=== PATIENT | male | born 1940 | race Caucasian/White ===

== ENCOUNTER 2017-10-11 17:21 | Emergency (ER) | payer MEDICARE ==
--- NOTE | 2017-10-11 18:58 | CT ---
CT abdomen and pelvis Technique: Multiple axial sections were obtained from above the dome of the diaphragm inferiorly through the pubic symphysis. Intravenous and oral contrast not utilized. Lack of contrast makes evaluation difficult due to previous previous surgery. Comparison: No previous study. Findings: Small portion of the visualized lung bases are clear. Moderate-sized hiatal hernia is noted. Noncontrast appearance of the liver and spleen appears within normal limits. Adrenal glands show no nodule. Pancreas is within normal limits. Kidneys show no hydronephrosis. Previous prostatectomy is seen with multiple surgical clips within the pelvis as well as bladder resection. There appears to be a ileal conduit in place within the right lower abdomen. Ostomy is seen within the right lower abdomen. No bowel dilatation is seen. There is no inflammatory change being appreciated. No free fluid is seen. Bone window settings were reviewed which shows scattered degenerative change within the spine with mild scoliosis. Impression: 1. Previous resection of the bladder as well as prostatectomy. Nondilated ureters are seen extending into what appears to be an ileal conduit. No ureteral calculi are seen. Ostomy is noted within the right lower abdomen. Please correlate that ileal conduit is functioning. 2. Further anatomy of this surgery is difficult to determine without oral and IV contrast. 3. Hiatal hernia. Nothing acute is appreciated on this noncontrast study. Diagnostic code #3
--- NOTE | 2017-10-11 19:13 | EDM.PDOC ---
ED HPI GENERAL MEDICAL PROBLEM - General Chief Complaint: Genitourinary Problem Stated Complaint: ABDOMINAL PAIN Time Seen by Provider: 10/11/17 17:37 Source of Information: Reports: Patient History Limitations: Reports: No Limitations - History of Present Illness INITIAL COMMENTS - FREE TEXT/NARRATIVE: 76 year old Male presents for evaluation and treatment of abdominal pain to the [facility]. Patient reports he's been experiencing abdominal pain for the last couple days. Reportedly saw Dr. Gordon 2 days ago. Had a culture done of the area but does not know the results. No fevers, chills, nausea, vomiting or back pain. 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 No surrounding erythema or swelling. States it is draining normal per the patient. Right Lower Abdomen Pain Score (Numeric/FACES): 6 - Related Data Allergies Allergy/AdvReac Type Severity Reaction Status Date / Time codeine Allergy Cannot Verified 10/11/17 17:33 Remember Home Meds: Home Meds Aspirin [Adult Low Dose Aspirin EC] 81 mg PO DAILY 10/11/17 [History] Furosemide 80 mg PO DAILY 10/11/17 [History] Insulin Aspart [NovoLOG] 35 unit SQ BEDTIME 10/11/17 [History] Insulin Aspart [NovoLOG] 55 unit SQ DAILY 10/11/17 [History] Isosorbide Mononitrate [Isosorbide Mononitrate ER] 30 mg PO DAILY 10/11/17 [ History] Lisinopril 10 mg PO DAILY 10/11/17 [History] Memantine [Namenda] 10 mg PO BID 10/11/17 [History] Metoprolol Tartrate [Lopressor] 25 mg PO Q12HR 10/11/17 [History] Sertraline [Zoloft] 100 mg PO DAILY 10/11/17 [History] Past Medical History HEENT History: Reports: Other (See Below) Other HEENT History: dentures Cardiovascular History: Reports: Heart Failure, ND, Stents Gastrointestinal History: Reports: GERD, Hiatal Hernia Psychiatric History: Reports: Dementia Endocrine/Metabolic History: Reports: Diabetes, Type II Hematologic History: Reports: Anticoagulation Therapy Oncologic (Cancer) History: Reports: Bladder - Past Surgical History Cardiovascular Surgical History: Reports: Coronary Artery Stent GI Surgical History: Reports: Cholecystectomy, Other (See Below) Other GI Surgeries/Procedures: 2/3 of stomach pouch removed Male Surgical History: Reports: Other (See Below) Other Male Surgeries/Procedures: urinary stoma RLQ Social & Family History - Tobacco Use Smoking Status *Q: Never Smoker Second Hand Smoke Exposure: No - Caffeine Use Caffeine Use: Reports: Coffee - Recreational Drug Use Recreational Drug Use: No ED ROS GENERAL - Review of Systems Review Of Systems: See Below Constitutional: Denies: Fever, Chills GI/Abdominal: Reports: Abdominal Pain. Denies: Nausea, Vomiting Musculoskeletal: Denies: Back Pain ED EXAM, RENAL/ - Physical Exam Exam: See Below Exam Limited By: No Limitations General Appearance: Alert, WD/WN, No Apparent Distress Ears: Normal External Exam Nose: Normal Inspection Throat/Mouth: Normal Inspection, Normal Lips, Normal Voice, No Airway Compromise Respiratory/Chest: No Respiratory Distress, Lungs Clear, Normal Breath Sounds Cardiovascular: Normal Peripheral Pulses, Regular Rate, Rhythm, No Murmur GI/Abdominal: Normal Bowel Sounds, Soft, Non-Tender, Other (RLQ urostomy, cloudy urine) Neurological: Alert, Oriented, Normal Cognition Psychiatric: Normal Affect, Normal Mood Skin Exam: Warm, Dry, Normal Color Course - Vital Signs Last Recorded V/S: Last Vital Signs Temp 36.4 C 10/11/17 17:29 Pulse 58 L 10/11/17 17:29 Resp 19 10/11/17 17:29 BP 138/61 10/11/17 17:29 Pulse Ox 95 10/11/17 17:29 - Orders/Labs/Meds Orders: Active Orders 24 hr Category Date Time Status CULTURE URINE [RM] Stat Lab 10/11/17 20:24 Ordered Labs: Laboratory Tests 10/11/17 10/11/17 10/11/17 Range/Units 18:05 18:05 18:45 WBC 7.12 (4.23-9.07) K/mm3 RBC 4.70 (4.63-6.08) M/mm3 Hgb 13.9 (13.7-17.5) gm/L Hct 41.7 (40.1-51.0) % MCV 88.7 (79.0-92.2) fl MCH 29.6 (25.7-32.2) pg MCHC 33.3 (32.2-35.5) g/dl RDW Std Deviation 45.8 H (35.1-43.9) fL Plt Count 180 (163-337) K/mm3 MPV 10.5 (9.4-12.3) fl Neutrophils % (Manual) 57 (40-60) % Band Neutrophils % 0 (0-10) % Lymphocytes % (Manual) 28 (20-40) % Atypical Lymphs % 0 % Monocytes % (Manual) 10 (2-10) % Eosinophils % (Manual) 5 (0.8-7.0) % Basophils % (Manual) 0 L (0.2-1.2) Platelet Estimate Adequate Plt Morphology Comment Normal RBC Morph Comment Normal Sodium 141 (136-145) mEq/L Potassium 5.0 (3.5-5.1) mEq/L Chloride 109 H (98-107) mEq/L Carbon Dioxide 28 (21-32) mEq/L Anion Gap 9.0 (5-15) BUN 33 H (7-18) mg/dL Creatinine 1.2 (0.7-1.3) mg/dL Est Cr Clr Drug Dosing 47.26 mL/min Estimated GFR (MDRD) 59 (>60) mL/min BUN/Creatinine Ratio 27.5 H (14-18) Glucose 132 H (83-115) mg/dL Calcium 9.2 (8.5-10.1) mg/dL Total Bilirubin 0.4 (0.2-1.0) mg/dL AST 33 (15-37) U/L ALT 38 (16-63) U/L Alkaline Phosphatase 80 (46-116) U/L C-Reactive Protein < 0.2 (<1.0) mg/dL Total Protein 7.0 (6.4-8.2) g/dl Albumin 3.6 (3.4-5.0) g/dl Globulin 3.4 gm/dL Albumin/Globulin Ratio 1.1 (1-2) Urine Color Light yellow (Yellow) Urine Appearance Cloudy H (Clear) Urine pH 8.5 H (5.0-8.0) Ur Specific [place] 1.010 (1.005-1.030) Urine Protein 2+ H (Negative) Urine Glucose (UA) Negative (Negative) Urine Ketones Negative (Negative) Urine Occult Blood Negative (Negative) Urine Nitrite Positive H (Negative) Urine Bilirubin Negative (Negative) Urine Urobilinogen 0.2 (0.2-1.0) Ur Leukocyte Esterase Negative (Negative) Urine RBC 0-5 (0-5) /hpf Urine WBC 0-5 (0-5) /hpf Ur Epithelial Cells 0-5 (0-5) /hpf Triple Phos Crystals Moderate H (NONE) /hpf Amorphous Sediment Few H (NOT SEEN) /hpf Urine Bacteria Many H (FEW) /hpf Urine Mucus Not seen (FEW) /hpf - Radiology Interpretation Free Text/Narrative:: CT abdomen and pelvis Technique: Multiple axial sections were obtained from above the dome of the diaphragm inferiorly through the pubic symphysis. Intravenous and oral contrast not utilized. Lack of contrast makes evaluation difficult due to previous previous surgery. Comparison: No previous study. Findings: Small portion of the visualized lung bases are clear. Moderate-sized hiatal hernia is noted. Noncontrast appearance of the liver and spleen appears within normal limits. Adrenal glands show no nodule. Pancreas is within normal limits. Kidneys show no hydronephrosis. Previous prostatectomy is seen with multiple surgical clips within the pelvis as well as bladder resection. There appears to be a ileal conduit in place within the right lower abdomen. Ostomy is seen within the right lower abdomen. No bowel dilatation is seen. There is no inflammatory change being appreciated. No free fluid is seen. Bone window settings were reviewed which shows scattered degenerative change within the spine with mild scoliosis. Impression: 1. Previous resection of the bladder as well as prostatectomy. Nondilated ureters are seen extending into what appears to be an ileal conduit. No ureteral calculi are seen. Ostomy is noted within the right lower abdomen. Please correlate that ileal conduit is functioning. 2. Further anatomy of this surgery is difficult to determine without oral and IV contrast. 3. Hiatal hernia. Nothing acute is appreciated on this noncontrast study. - Re-Assessments/Exams Free Text/Narrative Re-Assessment/Exam: 10/11/17 18:01 UA results obtained from Dr. Gordon's office. Negative nitrates and leukocytes. Large amount of blood. Case discussed with Dr. Laguna, recommend obtaining a CT of the abdomen and pelvis to rule out a stone. 10/11/17 20:39 I reviewed the labs and imaging with the patient. Will start him on Keflex twice a day for 7 days for the urinary tract infection and have him follow-up with PCP. He was also made aware of the hernia to the stoma site. This also could be causing sources pain. Discharge instructions as documented. Departure - Departure Time of Disposition: 20:39 Disposition: Home, Self-Care 01 Condition: Fair Clinical Impression: UTI, Urinary tract infectious disease, Abdominal wall hernia at previous stoma site - Discharge Information Instructions: Hernia, Adult, [id number], Urinary Tract Infection, Adult Referrals: PCP,Not In Area [Primary Care Provider] - Enrico Woodruff MD [Physician] - Forms: ED Department Discharge Additional Instructions: cephelexin 500mg 1 tab PO bid x 7 days make sure you are drinking plenty of fluids. follow-up with internal medicine in [address] Woodruff or Dr. Valenzuela at the [facility]. Call [phone] to schedule with him. Please return to the ER should your symptoms change or worsen - My Orders Last 24 Hours: My Active Orders 10/11/17 20:24 CULTURE URINE [RM] Stat - Assessment/Plan Last 24 Hours: My Active Orders 10/11/17 20:24 CULTURE URINE [RM] Stat
== END 2017-10-11 20:49 | disposition home or self-care (01) ==
LOC: JD.ED 17:21
DX: K43.9 Ventral hernia without obstruction or gangrene (principal); N39.0 Urinary tract infection, site not specified; I50.9 Heart failure, unspecified; I25.2 Old myocardial infarction; E11.9 Type 2 diabetes mellitus without complications; Z79.899 Other long term (current) drug therapy; Z79.4 Long term (current) use of insulin; Z88.5 Allergy status to narcotic agent; Z79.82 Long term (current) use of aspirin
CPT/HCPCS: 36415; 74176; 74176-26; 80053; 81001; 85025; 86140; 87086; 87088; 87186; 99283; 99284-25

== ENCOUNTER 2017-10-28 15:53 | Emergency (ER) | payer MEDICARE ==
--- NOTE | 2017-10-28 16:35 | EDM.PDOC ---
ED HPI GENERAL MEDICAL PROBLEM - General Chief Complaint: Upper Extremity Injury/Pain Stated Complaint: R SHOULDER PAIN Time Seen by Provider: 10/28/17 16:09 Source of Information: Reports: Patient History Limitations: Reports: No Limitations - History of Present Illness INITIAL COMMENTS - FREE TEXT/NARRATIVE: The patient states that he was getting out of his pickup around 09:00 to 09:30 this morning, when he slipped on ice, falling onto his right shoulder. He also struck the back of his head against the truck door, but there was no loss of consciousness. The patient presents with pain in his right anterior shoulder. He states that he took some Olivet, which he ordinarily takes for neck pain, but that they did not help. He states that he can move his shoulder, with pain. No prior right humeral fracture. The patient drove himself to the ED. The patient's PCP is Dr. Dre Oneill, in [place]. Right Shoulder Pain Score (Numeric/FACES): 7 - Related Data Allergies Allergy/AdvReac Type Severity Reaction Status Date / Time codeine Allergy Cannot Verified 10/28/17 16:05 Remember Home Meds: Home Meds Aspirin [Adult Low Dose Aspirin EC] 81 mg PO DAILY 10/11/17 [History] Furosemide 80 mg PO DAILY 10/11/17 [History] Insulin Aspart [NovoLOG] 35 unit SQ BEDTIME 10/11/17 [History] Insulin Aspart [NovoLOG] 55 unit SQ DAILY 10/11/17 [History] Isosorbide Mononitrate [Isosorbide Mononitrate ER] 30 mg PO DAILY 10/11/17 [ History] Lisinopril 10 mg PO DAILY 10/11/17 [History] Memantine [Namenda] 10 mg PO BID 10/11/17 [History] Metoprolol Tartrate [Lopressor] 25 mg PO Q12HR 10/11/17 [History] Sertraline [Zoloft] 100 mg PO DAILY 10/11/17 [History] Past Medical History HEENT History: Reports: Other (See Below) Other HEENT History: dentures Cardiovascular History: Reports: CAD, MS (x 4) Gastrointestinal History: Reports: GERD, Hiatal Hernia Endocrine/Metabolic History: Reports: Diabetes, Type II Hematologic History: Reports: Anticoagulation Therapy Oncologic (Cancer) History: Reports: Bladder - Past Surgical History Cardiovascular Surgical History: Reports: Coronary Artery Stent (x 2) GI Surgical History: Reports: Cholecystectomy, Small Bowel, Other (See Below) ( Partial gastrectomy? Or Diana fundoplication?) Male Surgical History: Reports: Cystectomy, Prostatectomy, Other (See Below) (Urostomy RLQ) Social & Family History - Tobacco Use Smoking Status *Q: Former Smoker Years of Tobacco use: 35 Packs/Tins Daily: 2 Month Tobacco Last Used: Quit around 2007 Second Hand Smoke Exposure: No - Caffeine Use Caffeine Use: Reports: Coffee - Alcohol Use Alcohol Use History: Yes Alcohol Use Frequency: Socially - Recreational Drug Use Recreational Drug Use: No - Living Situation & Occupation Living situation: Reports: , with Family (daughter) Occupation: Retired Review of Systems - Review of Systems Review Of Systems: ROS reveals no pertinent complaints other than HPI. ED EXAM, GENERAL - Physical Exam Exam: See Below Exam Limited By: No Limitations General Appearance: Alert, WD/WN, Mild Distress (Appears uncomfortable) Extremities: Other (No visible abnormality to the right shoulder, such as obvious deformity, swelling, erythema, ecchymosis, or abrasion. Minimal tenderness to palpation of the anterior shoulder, however, pain is induced with any ROM. Neurovascular status of the right upper extremity is intact.) Course - Vital Signs Last Recorded V/S: Last Vital Signs Temp 36.7 C 10/28/17 16:00 Pulse 52 L 10/28/17 16:00 Resp 13 10/28/17 16:00 BP 162/70 H 10/28/17 16:00 Pulse Ox 99 10/28/17 16:00 - Orders/Labs/Meds Orders: Active Orders 24 hr Category Date Time Status Shoulder Comp Rt [CR] Stat Exams 10/28/17 16:13 Taken DME for Discharge [COMM] Stat Oth 10/28/17 16:54 Ordered - Re-Assessments/Exams Free Text/Narrative Re-Assessment/Exam: 10/28/17 16:38 3-view radiographs of the right shoulder appear to be normal. No fracture or dislocation identified. Formal read per the Radiologist pending. 10/28/17 16:55 X-ray results discussed with the patient. The patient likely has a soft tissue or ligamentous injury. I will put him in an arm sling and refer him to Dr. Simpson. The patient had asked the nurse for a stronger pain medication, however, when reminded that he drove himself here, and that in order to get a narcotic he would need to have someone come and get him, he then declined. The patient already has Olivet at home. Departure - Departure Time of Disposition: 16:54 Disposition: Home, Self-Care 01 Condition: Good Clinical Impression: Right shoulder injury, Fall from slipping on ice - Discharge Information Referrals: PCP,Not In Area [Primary Care Provider] - Maged Simpson MD [Physician] - Forms: ED Department Discharge Additional Instructions: You were seen in the emergency room after slipping and falling on ice, injuring your right shoulder. Workup in the ER included x-rays of your right shoulder, which were normal. You have not broken any bones. The pain in your right shoulder is MOST LIKELY due to soft tissue or tendon injury. Your right arm has been placed into a sling. Wear this as necessary. Take [id number] ibuprofen, 2-3 tablets (400-600 mg) every 8 hours, with food, as needed for pain. If needed, you can also take some of your own Olivet, as prescribed. If you take Olivet, do not drive or operate heavy machinery for 10 hours afterwards. Follow-up with the Orthopedic Surgeon Dr. Maged Simpson at the next available appointment, for further evaluation. If any other problems, please do not hesitate to return to the ER. - My Orders Last 24 Hours: My Active Orders 10/28/17 16:13 Shoulder Comp Rt [CR] Stat 10/28/17 16:54 DME for Discharge [COMM] Stat - Assessment/Plan Last 24 Hours: My Active Orders 10/28/17 16:13 Shoulder Comp Rt [CR] Stat 10/28/17 16:54 DME for Discharge [COMM] Stat
--- NOTE | 2017-10-29 10:05 | CR ---
Right shoulder: Three views of the right shoulder were obtained. Comparison: No prior study. Mild joint space narrowing is seen within the acromioclavicular and glenohumeral joints. No acute fracture, dislocation or other bony abnormality is seen. Impression: 1. Mild degenerative change. Nothing acute is appreciated on three-view right shoulder study. Diagnostic code #2
== END 2017-10-28 17:08 | disposition home or self-care (01) ==
LOC: JD.ED 15:53
DX: S49.91XA Unspecified injury of right shoulder and upper arm, initial encounter (principal); I25.10 Atherosclerotic heart disease of native coronary artery without angina pectoris; K21.9 Gastro-esophageal reflux disease without esophagitis; E11.9 Type 2 diabetes mellitus without complications; Z79.01 Long term (current) use of anticoagulants; Z95.5 Presence of coronary angioplasty implant and graft; Z87.891 Personal history of nicotine dependence; Z79.4 Long term (current) use of insulin; Z79.82 Long term (current) use of aspirin; Z79.899 Other long term (current) drug therapy; Z88.5 Allergy status to narcotic agent; W00.0XXA Fall on same level due to ice and snow, initial encounter
CPT/HCPCS: 73030-26-RT; 73030-RT; 99283

== ENCOUNTER 2018-11-13 20:05 | Emergency (ER) | payer MEDICARE ==
[2018-11-13] MEDS ORDERED: Ondansetron 4 MG Tab.DIS PO ONE (20:33)
[2018-11-13] MEDS ORDERED: Oseltamivir 75 MG Cap PO ONE (21:14)
--- NOTE | 2018-11-13 21:16 | EDM.PDOC ---
ED HPI GENERAL MEDICAL PROBLEM - General Chief Complaint: Respiratory Problem Stated Complaint: CONGESTION/SOB/DIZZY Time Seen by Provider: 11/13/18 20:16 Source of Information: Reports: Patient, Family (2 daughters), RN Notes Reviewed History Limitations: Reports: No Limitations - History of Present Illness INITIAL COMMENTS - FREE TEXT/NARRATIVE: The patient states that he has had a cough, nasal congestion, and body aches for the past 2-3 days. His also had slight nausea, but no emesis, constipation, or diarrhea. No headache or fever. The patient states that his granddaughter was diagnosed with Influenza A today, and that he was exposed to her as recently as this past weekend, 11/10/2018. In addition, the patient states that he may also have a urinary tract infection. He has a urostomy to the right lower quadrant, and states that he has had pain to this area for about 2 weeks. He states that he can't smell anything, but his daughter states that his urine has been malodorous. These of the same symptoms that he has had in the past when he has had a UTI. The patient states that he has not taken any [id number] or home remedies to try to treat any of his symptoms. The patient's PCP is Dr. Dre Oneill, in [place]. The patient states that he did receive an influenza vaccine this season. - Related Data Allergies Allergy/AdvReac Type Severity Reaction Status Date / Time codeine Allergy Cannot Verified 10/28/17 16:05 Remember Home Meds: Home Meds Aspirin [Adult Low Dose Aspirin EC] 81 mg PO DAILY 10/11/17 [History] Furosemide 80 mg PO DAILY 10/11/17 [History] Insulin Aspart [NovoLOG] 35 unit SQ BEDTIME 10/11/17 [History] Insulin Aspart [NovoLOG] 55 unit SQ DAILY 10/11/17 [History] Isosorbide Mononitrate [Isosorbide Mononitrate ER] 30 mg PO DAILY 10/11/17 [ History] Lisinopril 10 mg PO DAILY 10/11/17 [History] Memantine [Namenda] 10 mg PO BID 10/11/17 [History] Metoprolol Tartrate [Lopressor] 25 mg PO Q12HR 10/11/17 [History] Sertraline [Zoloft] 100 mg PO DAILY 10/11/17 [History] Oseltamivir [Tamiflu] 1 cap PO Q12H #9 cap 11/13/18 [Rx] Sulfamethoxazole/Trimethoprim [Septra DS] 1 tab PO Q12H #9 tab 11/13/18 [Rx] Past Medical History HEENT History: Reports: Hard of Hearing, Other (See Below) Other HEENT History: dentures Cardiovascular History: Reports: CAD, [place] (x 4) Gastrointestinal History: Reports: GERD, Hiatal Hernia Psychiatric History: Reports: Depression Endocrine/Metabolic History: Reports: Diabetes, Type II Hematologic History: Reports: Anticoagulation Therapy Oncologic (Cancer) History: Reports: Bladder - Past Surgical History Cardiovascular Surgical History: Reports: Coronary Artery Stent (x 2) GI Surgical History: Reports: Cholecystectomy, Small Bowel Male Surgical History: Reports: Cystectomy, Prostatectomy, Other (See Below) (Urostomy RLQ) Social & Family History - Tobacco Use Smoking Status *Q: Former Smoker Years of Tobacco use: 35 Packs/Tins Daily: 2 Month/Year Tobacco Last Used: Quit 2007 - Caffeine Use Caffeine Use: Reports: Coffee - Alcohol Use Alcohol Use History: Yes Alcohol Use Frequency: Socially - Recreational Drug Use Recreational Drug Use: No - Living Situation & Occupation Living situation: Reports: , with Family (daughter) Occupation: Retired ED ROS GENERAL - Review of Systems Review Of Systems: ROS reveals no pertinent complaints other than HPI. ED EXAM, GENERAL - Physical Exam Exam: See Below Exam Limited By: No Limitations General Appearance: Alert, WD/WN, No Apparent Distress Eye Exam: Bilateral Eye: EOMI, Normal Inspection Ears: Normal External Exam, Normal Canal, Normal TMs, Hearing Loss Nose: Normal Inspection, Normal Mucosa, No Blood Throat/Mouth: Normal Inspection, Normal Lips, Normal Teeth, Normal Gums, Normal Oropharynx, Normal Voice, No Airway Compromise Head: Atraumatic, Normocephalic Neck: Normal Inspection, Supple, Non-Tender, Full Range of Motion. No: Lymphadenopathy (L), Lymphadenopathy (R) Respiratory/Chest: No Respiratory Distress, Lungs Clear, Normal Breath Sounds, No Accessory Muscle Use. No: Decreased Breath Sounds, Crackles, Rhonchi, Wheezing, Prolonged Expiration Cardiovascular: Normal Peripheral Pulses, Regular Rate, Rhythm, No Gallop, No JVD, No Murmur, No Rub Peripheral Pulses: 4+: Radial (L), Radial (R) GI/Abdominal: Normal Bowel Sounds, Soft, Non-Tender, No Organomegaly, No Distention, No Abnormal Bruit, No Mass (Male) Exam: Deferred Rectal (Males) Exam: Deferred Back Exam: Normal Inspection, Full Range of Motion, NT Extremities: Normal Inspection, Normal Range of Motion, No Pedal Edema, Normal Capillary Refill Neurological: Alert, Oriented, Normal Cognition, No Motor/Sensory Deficits Psychiatric: Normal Affect Skin Exam: Warm, Dry, Intact, Normal Color, No Rash Course - Vital Signs Last Recorded V/S: Last Vital Signs Temp 36.4 C 11/13/18 20:13 Pulse 64 11/13/18 20:13 Resp 20 11/13/18 20:13 BP 139/68 11/13/18 20:13 Pulse Ox 98 11/13/18 20:13 - Orders/Labs/Meds Orders: Active Orders 24 hr Category Date Time Status CULTURE URINE [RM] Stat Lab 11/13/18 21:57 Ordered Labs: Laboratory Tests 11/13/18 11/13/18 11/13/18 Range/Units 20:43 20:43 21:18 WBC 6.13 (4.23-9.07) K/mm3 RBC 4.96 (4.63-6.08) M/mm3 Hgb 14.5 (13.7-17.5) gm/L Hct 43.2 (40.1-51.0) % MCV 87.1 (79.0-92.2) fl MCH 29.2 (25.7-32.2) pg MCHC 33.6 (32.2-35.5) g/dl RDW Std Deviation 47.6 H (35.1-43.9) fL Plt Count 142 L (163-337) K/mm3 MPV 10.1 (9.4-12.3) fl Neutrophils % (Manual) 66 H (40-60) % Band Neutrophils % 0 (0-10) % Lymphocytes % (Manual) 13 L (20-40) % Atypical Lymphs % 0 % Monocytes % (Manual) 19 H (2-10) % Eosinophils % (Manual) 0 L (0.8-7.0) % Basophils % (Manual) 1 (0.2-1.2) Myelocytes % 1 Platelet Estimate Adequate Plt Morphology Comment Normal RBC Morph Comment Normal Sodium 136 (136-145) mEq/L Potassium 5.0 (3.5-5.1) mEq/L Chloride 104 (98-107) mEq/L Carbon Dioxide 26 (21-32) mEq/L Anion Gap 11.0 (5-15) BUN 25 H (7-18) mg/dL Creatinine 1.2 (0.7-1.3) mg/dL Est Cr Clr Drug Dosing 46.52 mL/min Estimated GFR (MDRD) 59 (>60) mL/min BUN/Creatinine Ratio 20.8 H (14-18) Glucose 210 H (83-115) mg/dL Calcium 9.0 (8.5-10.1) mg/dL Total Bilirubin 0.5 (0.2-1.0) mg/dL AST 21 (15-37) U/L ALT 25 (16-63) U/L Alkaline Phosphatase 80 (46-116) U/L Total Protein 7.1 (6.4-8.2) g/dl Albumin 3.4 (3.4-5.0) g/dl Globulin 3.7 gm/dL Albumin/Globulin Ratio 0.9 L (1-2) Urine Color Yellow (Yellow) Urine Appearance Slt cloudy H (Clear) Urine pH 8.5 H (5.0-8.0) Ur Specific [place] 1.010 (1.005-1.030) Urine Protein 1+ H (Negative) Urine Glucose (UA) Negative (Negative) Urine Ketones Negative (Negative) Urine Occult Blood 2+ H (Negative) Urine Nitrite Positive H (Negative) Urine Bilirubin Negative (Negative) Urine Urobilinogen 0.2 (0.2-1.0) Ur Leukocyte Esterase 2+ H (Negative) Urine RBC 0-5 (0-5) /hpf Urine WBC 5-10 H (0-5) /hpf Ur Epithelial Cells 0-5 (0-5) /hpf Urine Bacteria Moderate H (FEW) /hpf Urine Mucus Few (FEW) /hpf Urinalysis Comment Meds: Medications Discontinued Medications Generic Name Dose Route Start Last Admin Trade Name Freq PRN Reason Stop Dose Admin Ondansetron HCl 4 mg 11/13/18 20:33 11/13/18 20:41 Zofran Odt PO 11/13/18 20:34 4 mg ONETIME ONE Administration Oseltamivir Phosphate 75 mg 11/13/18 21:14 11/13/18 22:34 Tamiflu PO 11/13/18 21:15 75 mg ONETIME ONE Administration Trimethoprim/Sulfamethoxazole 1 tab 11/13/18 21:57 11/13/18 22:34 Septra Ds PO 11/13/18 21:58 1 tab ONETIME ONE Administration - Re-Assessments/Exams Free Text/Narrative Re-Assessment/Exam: 11/13/18 21:15 The patient's influenza swab has returned positive for Influenza A. As per the HPI, the patient states that his symptoms began 2 or 3 days ago, therefore he may still be within the timeframe where Tamiflu is of benefit, therefore I have ordered Tamiflu 75 mg. 11/13/18 21:57 The patient's urinalysis is consistent with a UTI. I have ordered a urine culture, and will start the patient on oral Bactrim. 11/13/18 22:15 Test results discussed with the patient and one of his daughters. As above, the patient has been started on Tamiflu for Influenza A, and Bactrim for a UTI. Five -day prescriptions for each of these [facility] be [facility]. I will have the patient follow-up with Dr. Fraga this coming Sunday afternoon, , to check on the urine culture results. Departure - Departure Time of Disposition: 22:16 Disposition: Home, Self-Care 01 Condition: Fair Clinical Impression: Influenza A, UTI (urinary tract infection) - Discharge Information *PRESCRIPTION DRUG MONITORING PROGRAM REVIEWED*: Not Applicable *COPY OF PRESCRIPTION DRUG MONITORING REPORT IN PATIENT MARY: Not Applicable Prescriptions: Oseltamivir [Tamiflu] 1 cap PO Q12H #9 cap Sulfamethoxazole/Trimethoprim [Septra DS] 1 tab PO Q12H #9 tab Instructions: Influenza, Adult, Tloc-vw-Gamu, Urinary Tract Infection, Adult, [id number]-[id number] Referrals: Chantal Fraga MD [Physician] - Forms: ED Department Discharge Additional Instructions: You were seen in the emergency room for a cough, nasal congestion, body aches, along with urostomy pain. Workup in the ER included blood work, a urinalysis, and an influenza swab. Your urinalysis indicates that you have a urinary tract infection, and her influenza swab returned positive for Influenza A. You have been started on the antibiotic Bactrim and the anti-influenza medicine Tamiflu. Prescriptions for both Bactrim and Tamiflu have been sent to [facility], located in the [facility] across the [address] from the hospital. Take one tablet of Bactrim and one tablet of Tamiflu every 12 hours, to complete a five-day course, as prescribed. Finish both prescriptions unless told otherwise by Dr. Fraga. Make an appointment tomorrow () to follow-up with Dr. Fraga this coming 11/15/2018, to check on your urine culture results, to make sure that you are on the correct antibiotic. As discussed, we do not recommend that you take any iplt-hdi-nbjoiwt cough or cold remedies, as they've been shown to be of no benefit, however, you may take drvr-hot-fgfvbri Tylenol or ibuprofen as needed for discomfort. If any other problems, please do not hesitate to return to the ER. - My Orders Last 24 Hours: My Active Orders 11/13/18 21:57 CULTURE URINE [RM] Stat - Assessment/Plan Last 24 Hours: My Active Orders 11/13/18 21:57 CULTURE URINE [RM] Stat
[2018-11-13] MEDS ORDERED: Sulfamethoxazole/Trimethoprim 800-160 MG Tab PO ONE (21:57)
== END 2018-11-13 22:38 | disposition home or self-care (01) ==
LOC: JD.ED 20:05
DX: J10.1 Influenza due to other identified influenza virus with other respiratory manifestations (principal); N39.0 Urinary tract infection, site not specified; I25.10 Atherosclerotic heart disease of native coronary artery without angina pectoris; I25.2 Old myocardial infarction; B96.20 Unspecified Escherichia coli [E. coli] as the cause of diseases classified elsewhere; E11.9 Type 2 diabetes mellitus without complications; F32.9 Major depressive disorder, single episode, unspecified; Z79.01 Long term (current) use of anticoagulants; Z87.891 Personal history of nicotine dependence; Z88.5 Allergy status to narcotic agent; Z79.82 Long term (current) use of aspirin; Z79.899 Other long term (current) drug therapy; Z79.4 Long term (current) use of insulin
CPT/HCPCS: 36415; 80053; 81001; 85007; 85027; 87086; 87088; 87186; 87804; 99283; A9270

== ENCOUNTER 2020-10-10 01:16 | Emergency (ER) | payer MEDICARE ==
--- NOTE | 2020-10-10 01:47 | EDM.PDOC ---
ED HPI GENERAL MEDICAL PROBLEM - General Chief Complaint: Diabetic Complaint Stated Complaint: [facility] Time Seen by Provider: 10/10/20 01:26 Source of Information: Reports: Patient, Family (Daughter + bvxaggli-je-fre) History Limitations: Reports: No Limitations - History of Present Illness INITIAL COMMENTS - FREE TEXT/NARRATIVE: Mr. Valencia is a very pleasant 79-year-old gentleman who is now brought to the ED for hypoglycemia. According to the patient's daughter and [id number], they heard him fall out of bed. They went to his bedroom, finding him on the floor confused, but apparently uninjured. They called EMS, who found the patient's Accu-Chek to be 26. He was given IV dextrose, and by the time he arrived to the ED, an Accu-Chek was 118 and his mental status was back to normal. The patient states that he had dinner consisting of [place], and that he took his usual dose of insulin. He does not recall falling out of bed, but he does remember his daughter and ptsiicgx-uv-uae finding him on the floor. He denies having any pain or injury, anywhere. The patient's daughter and scydtday-ef-fjy tell me that the patient gets hypoglycemic, although not usually as severe, about once a week. They also tell me that he falls a lot. They discussed this with the patient's PCP, who recommended PT, however, the patient has been reluctant to go. The patient still drives, however. The patient's daughter and ozteubtw-jw-fkw tell me that the patient is currently on an antibiotic for a recently diagnosed UTI. Here in the ED, the patient's initial BP is found to be mildly elevated at 152/100, otherwise, he is hemodynamically stable, afebrile, saturating 100% on room air. Other than the recently diagnosed UTI and his frequent episodes of hypoglycemia, the patient denies having a recent fever, chills, sore throat, ear pain, nasal or sinus congestion, cough, dyspnea, chest pain, palpitations, nausea, vomiting, constipation, diarrhea, abdominal pain, urinary symptoms, recent weight gain or weight loss, recent bloody bowel movements or black bowel movements, recent joint aches, headaches, or rashes. The patient's PCP is Dr. Luther Gordon. He has not received an influenza vaccine this season, but agreed to get one here in the ED. - Related Data Allergies Allergy/AdvReac Type Severity Reaction Status Date / Time codeine Allergy Cannot Verified 10/10/20 01:20 Remember Home Meds: Home Meds Insulin Aspart [NovoLOG] 45 unit SQ DAILY 10/11/17 [History] Insulin Aspart [NovoLOG] 55 unit SQ BEDTIME 10/11/17 [History] Lisinopril 10 mg PO DAILY 10/11/17 [History] Memantine [Namenda] 10 mg PO BID 10/11/17 [History] Sertraline [Zoloft] 100 mg PO DAILY 10/11/17 [History] Sulfamethoxazole/Trimethoprim [Septra DS] 1 tab PO Q12H #9 tab 11/13/18 [Rx] Fish Oil/Watkins-3 Fatty Acids [Fish Oil 1,000 MG] 10/10/20 [History] Hydrocodone/Acetaminophen [Hydrocodone-Acetamin 5-325 mg] 10/10/20 [History] Simvastatin 20 mg PO 10/10/20 [History] Temazepam [Restoril] 15 mg PO BEDTIME PRN 10/10/20 [History] metFORMIN [Glucophage XR] 10/10/20 [History] traZODone HCl [Trazodone HCl] 100 mg PO 10/10/20 [History] Past Medical History HEENT History: Reports: Hard of Hearing Cardiovascular History: Reports: CAD, [place] (x 4x 4) Gastrointestinal History: Reports: GERD, Hiatal Hernia Psychiatric History: Reports: Depression Endocrine/Metabolic History: Reports: Diabetes, Type II Oncologic (Cancer) History: Reports: Bladder (s/p surgical resection and one dose of CTx) - Past Surgical History HEENT Surgical History: Reports: Oral Surgery (Dentures) Cardiovascular Surgical History: Reports: Coronary Artery Stent (x 2x 2) GI Surgical History: Reports: Cholecystectomy (around 1989), Small Bowel Male Surgical History: Reports: Other (See Below) (Urostomy RLQ) Oncologic Surgical History: Reports: Other (See Below) (Cystectomy and prostatectomy for bladder cancer) Social & Family History - Tobacco Use Tobacco Use Status *Q: Former Tobacco User Tobacco Use Within Last Twelve Months: Smokeless Tobacco (Chews a small amount daily) Years of Tobacco use: 35 Packs/Tins Daily: 2 Month/Year Tobacco Last Used: Quit 2007 - Caffeine Use Caffeine Use: Reports: Coffee - Alcohol Use Alcohol Use History: Yes Alcohol Use Frequency: Socially - Recreational Drug Use Recreational Drug Use: No - Living Situation & Occupation Living situation: Reports: , with Family (Daughter + zmoonlkg-wy-rbe) Occupation: Retired ED ROS GENERAL - Review of Systems Review Of Systems: Comprehensive ROS is negative, except as noted in HPI. ED EXAM GENERAL NO PERIP PULSE - Physical Exam Exam: See Below Exam Limited By: No Limitations General Appearance: Alert, WD/WN, No Apparent Distress Eye Exam: Bilateral Eye: EOMI, Normal Inspection Ears: Normal External Exam, Hearing Loss Nose: Normal Inspection Throat/Mouth: Normal Inspection, Normal Lips, Normal Voice, No Airway Compromise Head: Atraumatic, Normocephalic Neck: Normal Inspection, Full Range of Motion Respiratory/Chest: No Respiratory Distress, Lungs Clear, Normal Breath Sounds, No Accessory Muscle Use Cardiovascular: Normal Peripheral Pulses, Regular Rate, Rhythm, No Gallop, No JVD, No Murmur, No Rub GI/Abdominal: Normal Bowel Sounds, Soft, Non-Tender, No Organomegaly, No Distention, No Abnormal Bruit, No Mass, Other (Urostomy RLQ) Back Exam: Normal Inspection, Full Range of Motion, NT Extremities: Normal Inspection, Normal Range of Motion, Normal Capillary Refill Neurological: Alert, Oriented, Normal Cognition, No Motor/Sensory Deficits Psychiatric: Normal Affect Skin Exam: Warm, Dry, Intact, Normal Color, No Rash #1 Interpretation EKG Date: 10/10/20 Time: 01:29 Rhythm: Other (Sinus bradycardia) Rate (Beats/Min): 58 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) QRS: Other (Late transition) ST-T: Normal QT: Normal Comparison: NA - No Prior EKG Course - Vital Signs Last Recorded V/S: Last Vital Signs Temp 35.7 C L 10/10/20 01:21 Pulse 55 L 10/10/20 03:31 Resp 16 10/10/20 03:31 BP 92/47 L 10/10/20 03:31 Pulse Ox 93 L 10/10/20 03:31 - Orders/Labs/Meds Orders: Active Orders 24 hr Category Date Time Status Influenza Vaccine Charge [RC] .DISCHARGE Care 10/10/20 02:46 Active Labs: Laboratory Tests 10/10/20 10/10/20 10/10/20 Range/Units 01:27 02:25 03:30 POC Glucose 118 H 172 H 181 H (83-110) mg/dL Meds: Medications Discontinued Medications Generic Name Dose Route Start Last Admin Trade Name Last PRN Reason Stop Dose Admin Influenza Virus Vaccine 1 each 10/10/20 02:46 Pharmacy To Dose - Influenza Vaccine IM 10/10/20 02:47 ONETIME ONE Influenza Virus Vaccine 240 mcg 10/10/20 03:00 10/10/20 03:12 Fluzone High-Dose Quad 2020-21 IM 10/10/20 03:01 240 mcg .ONCE ONE Administration Influenza Virus Vaccine Confirm 10/10/20 02:52 Fluzone High-Dose Quad 2020-21 Administered 10/10/20 02:53 Dose 240 mcg IM .STK-MED ONE - Re-Assessments/Exams Free Text/Narrative Re-Assessment/Exam: 10/10/20 01:45 As above, the patient's daughter and ievngeas-qw-uft heard the patient fall out of bed tonight, and found him on the floor, essentially uninjured. EMS found his blood glucose to be 26. He was given IV dextrose, and his Accu-Chek here in the ED is 118. He has now eaten half of a turkey sandwich and drank some apple juice. My plan will be to keep an eye on his blood glucose for the next couple of hours, and if it remains stable, he can safely be discharged home. 10/10/20 02:35 Repeat Accu-Chek is 172. 10/10/20 03:30 Repeat Accu-Chek is 181. I will discharge him home with the recommendation that he follow-up with Dr. Gordon to discuss reducing the amount of insulin that he is taking. The patient will be given an influenza vaccine prior to discharge. Departure - Departure Time of Disposition: 03:31 Disposition: Home, Self-Care 01 Condition: Good Clinical Impression: Insulin reaction - Discharge Information *PRESCRIPTION DRUG MONITORING PROGRAM REVIEWED*: Not Applicable *COPY OF PRESCRIPTION DRUG MONITORING REPORT IN PATIENT MARY: Not Applicable Instructions: Hypoglycemia, [id number] Referrals: Luther Chaudhary MD [Physician] - Forms: ED Department Discharge Additional Instructions: You were seen in the emergency room after falling out of bed, with the paramedics found your blood sugar to be extremely low at 26. The paramedics gave you IV sugar, and you were given some food in the ER. Your blood sugar went up, and stayed up. We strongly recommend that you follow-up with your PCP, Dr. Luther Gordon, to discuss reducing the amount of insulin that you take. In the meantime, it is very important that you eat a full meal if you are going to take a full dose of insulin. If any other problems, please do not hesitate to return to the ER. You were given an influenza vaccine during your ER visit. Sepsis Event Note (ED) - Evaluation Sepsis Screening Result: No Definite Risk - Focused Exam Vital Signs: Vital Signs Temp Pulse Resp BP Pulse Ox 10/10/20 03:31 55 L 16 92/47 L 93 L 10/10/20 02:53 57 L 16 83/42 L 95 10/10/20 01:21 35.7 C L 60 18 152/100 H 100 - My Orders Last 24 Hours: My Active Orders 10/10/20 02:46 Influenza Vaccine Charge [RC] .DISCHARGE - Assessment/Plan Last 24 Hours: My Active Orders 10/10/20 02:46 Influenza Vaccine Charge [RC] .DISCHARGE
[2020-10-10] MEDS ORDERED: FLU Vacc QV2020-21(65YR UP)/PF 240 MCG/0.7 ML Syringe IM ONE ×2 (02:52→03:00)
== END 2020-10-10 04:05 | disposition home or self-care (01) ==
LOC: JD.ED 01:16
DX: E11.649 Type 2 diabetes mellitus with hypoglycemia without coma (principal); T38.3X5A Adverse effect of insulin and oral hypoglycemic [antidiabetic] drugs, initial encounter; I25.10 Atherosclerotic heart disease of native coronary artery without angina pectoris; I25.2 Old myocardial infarction; I44.4 Left anterior fascicular block; I44.0 Atrioventricular block, first degree; Z23 Encounter for immunization; Z87.891 Personal history of nicotine dependence; Z88.5 Allergy status to narcotic agent; Z79.899 Other long term (current) drug therapy
CPT/HCPCS: 82962; 90662; 93005; 99285; G0008; 93010; 99283

== ENCOUNTER 2020-11-21 15:16 | Inpatient (IN) | payer MEDICARE ==
[2020-11-21] MEDS ORDERED: Sodium Chloride 0.9% 1,000 ML IV ONE (15:27)
[2020-11-21] MEDS ORDERED: cefTRIAXone 2 GM in Sodium Chloride 0.9% 100 ML IV ONE (15:43)
[2020-11-21] MEDS ORDERED: Iopamidol 755 Mg/ML 100 ML Bottle IVPUSH ONE (15:49)
[2020-11-21] MEDS ORDERED: Sodium Chloride 0.9% 10 ML Syringe FLUSH PRN (15:49)
[2020-11-21] MEDS ORDERED: Sodium Chloride 0.9% 100 ML IV SCH (16:00)
--- NOTE | 2020-11-21 16:05 | EDM.PDOC ---
ED HPI GENERAL MEDICAL PROBLEM - General Chief Complaint: Abdominal Pain Stated Complaint: [facility] Time Seen by Provider: 11/21/20 15:20 Source of Information: Reports: Patient, EMS, Family History Limitations: Reports: Altered Mental Status - History of Present Illness INITIAL COMMENTS - FREE TEXT/NARRATIVE: The patient presents by [facility] for generalized weakness, confusion and abdominal pain. He lives with his daughter and this afternoon she got him a salad and he was not acting right. About an hour later, she found him in the bathroom and he was confused. He urinated on the floor and had diarrhea. He said his abdomen hurt. When he arrives he is pale and cool. He is oriented to person and place but a little confused with the time. He denies any headache, chest pain, shortness of breath, nausea or vomiting. He says his stomach does hurt some and put his hand over his upper abdomen. He has a urostomy bag. He had bladder cancer in the past and had his bladder removed. He has diabetes mellitus type II and he was on insulin until last month. His blood sugar was down to 26. He needed D50. Dr Vasquez took him off of his insulin. Onset: Gradual Duration: Hour(s): Location: Reports: Abdomen Quality: Reports: Sharp Severity: Moderate Improves with: Reports: None Worsens with: Reports: None Associated Symptoms: Reports: Confusion. Denies: Chest Pain, Cough, Fever/Chills, Headaches, Nausea/Vomiting, Shortness of Breath Abdominal Pain Score (Numeric/FACES): 5 - Related Data Allergies Allergy/AdvReac Type Severity Reaction Status Date / Time codeine Allergy Cannot Verified 10/10/20 01:20 Remember Home Meds: Home Meds Insulin Aspart [NovoLOG] 45 unit SQ DAILY 10/11/17 [History] Insulin Aspart [NovoLOG] 55 unit SQ BEDTIME 10/11/17 [History] Lisinopril 20 mg PO DAILY 10/11/17 [History] Memantine [Namenda] 10 mg PO BID 10/11/17 [History] Sertraline [Zoloft] 200 mg PO DAILY 10/11/17 [History] Fish Oil/[place]-3 Fatty Acids [Fish Oil 1,000 MG] 1 cap PO DAILY 10/10/20 [History] Hydrocodone/Acetaminophen [Hydrocodone-Acetamin 5-325 mg] 1 tab PO DAILY 10/10/20 [History] Simvastatin 20 mg PO BEDTIME 10/10/20 [History] Temazepam [Restoril] 15 mg PO BEDTIME PRN 10/10/20 [History] metFORMIN [Glucophage XR] 1,000 mg PO BID 10/10/20 [History] traZODone HCl [Trazodone HCl] 100 mg PO 10/10/20 [History] Empagliflozin [Jardiance] 10 mg PO DAILY 11/21/20 [History] Past Medical History HEENT History: Reports: Hard of Hearing Other HEENT History: dentures Cardiovascular History: Reports: CAD, 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 4) Gastrointestinal History: Reports: GERD, Hiatal Hernia Psychiatric History: Reports: Depression Endocrine/Metabolic History: Reports: Diabetes, Type II Hematologic History: Reports: Anticoagulation Therapy Oncologic (Cancer) History: Reports: Bladder (s/p surgical resection and one dose of CTx) - Past Surgical History HEENT Surgical History: Reports: Oral Surgery (Dentures) Cardiovascular Surgical History: Reports: Coronary Artery Stent (x 2x 2) GI Surgical History: Reports: Cholecystectomy (around 1989), Small Bowel Male Surgical History: Reports: Other (See Below) (Urostomy RLQ) Oncologic Surgical History: Reports: Other (See Below) (Cystectomy and prostatectomy for bladder cancer) Social & Family History - Caffeine Use Caffeine Use: Reports: Coffee - Living Situation & Occupation Living situation: Reports: , with Family (Daughter + [id number]) Occupation: Retired ED ROS GENERAL - Review of Systems Review Of Systems: See Below Constitutional: Reports: Chills, Malaise, Weakness, Fatigue. Denies: Fever HEENT: Reports: No Symptoms Respiratory: Reports: No Symptoms Cardiovascular: Reports: No Symptoms Endocrine: Reports: No Symptoms GI/Abdominal: Reports: Abdominal Pain, Diarrhea. Denies: Nausea, Vomiting : Reports: No Symptoms Musculoskeletal: Reports: No Symptoms ED EXAM, GI/ABD - Physical Exam Exam: See Below Exam Limited By: Altered Mental Status (slightly confused) General Appearance: Alert, No Apparent Distress Ears: Normal External Exam Nose: Normal Inspection Head: Atraumatic, Normocephalic Neck: Normal Inspection Respiratory/Chest: No Respiratory Distress, Lungs Clear, Normal Breath Sounds Cardiovascular: Regular Rate, Rhythm, No Edema, No Murmur GI/Abdominal Exam: Soft, No Organomegaly, No Mass, Tender (Mild upper abdominal tenderness. Urostomy in the right middle abdomen) Extremities: Normal Inspection Neurological: Other (sleepy. He is talking softly. Orientated to person and place but confused about time) Skin Exam: Cool, Pallor #1 Interpretation EKG Date: 11/21/20 Time: 15:14 Rhythm: NSR Rate (Beats/Min): 67 Wilder: LAD-Left Wilder Deviation P-Wave: Present QRS: Normal ST-T: Normal QT: Normal Comparison: No Change Course - Vital Signs Last Recorded V/S: Last Vital Signs Temp 92.3 F L 11/21/20 15:18 Pulse 67 11/21/20 15:18 Resp 18 11/21/20 15:18 BP 95/60 11/21/20 15:18 Pulse Ox 96 11/21/20 15:18 - Orders/Labs/Meds Orders: Active Orders 24 hr Category Date Time Status EKG Documentation Completion [RC] ASDIRECTED Care 11/21/20 15:24 Active Oxygen Therapy Adult [Oxygen Therapy, ED] [RC] Care 11/21/20 16:35 Active ASDIRECTED RT Aerosol Therapy [RC] ASDIRECTED Care 11/21/20 16:58 Active Chest Abdomen Pelvis w Cont [CT] Stat Exams 11/21/20 15:29 Taken Head wo Cont [CT] Stat Exams 11/21/20 15:27 Taken CULTURE BLOOD [BC] Stat Lab 11/21/20 15:47 Received CULTURE BLOOD [BC] Stat Lab 11/21/20 16:14 Received CULTURE URINE [RM] Stat Lab 11/21/20 15:52 Received Lactated Ringers [Ringers, Lactated] 1,000 ml Med 11/21/20 16:55 Active IV .BOLUS Lactated Ringers [Ringers, Lactated] 250 ml Med 11/21/20 16:56 Active IV .BOLUS Sodium Chloride 0.9% [Normal Saline] 100 ml Med 11/21/20 16:00 Active IV ASDIRECTED Sodium Chloride 0.9% [Saline Flush] Med 11/21/20 15:49 Active 10 ml FLUSH ONETIME PRN Blood Culture x2 Reflex Set [OM.PC] Stat Oth 11/21/20 15:28 Ordered EKG 12 Lead [EK] Stat Ther 11/21/20 15:24 Ordered Medication Orders Sodium Chloride (Normal Saline) 100 mls @ 75 mls/hr IV ASDIRECTED [facility] Lactated Ringer's (Ringers, Lactated) 1,000 mls @ 1,000 mls/hr IV .BOLUS ONE Stop: 11/21/20 17:54 Lactated Ringer's (Ringers, Lactated) 250 mls @ 250 mls/hr IV .BOLUS ONE Stop: 11/21/20 17:55 Sodium Chloride (Sodium Chloride 0.9% 10 Ml Syringe) 10 ml FLUSH ONETIME PRN PRN Reason: IV FLUSH Last Admin: 11/21/20 16:31 Dose: 10 ml Documented by: SAPNA Labs: Laboratory Tests 11/21/20 11/21/20 11/21/20 Range/Units 15:15 15:15 15:15 WBC 12.20 H (4.23-9.07) K/mm3 RBC 5.75 (4.63-6.08) M/mm3 Hgb 16.6 (13.7-17.5) gm/dl Hct 51.4 H (40.1-51.0) % MCV 89.4 D (79.0-92.2) fl MCH 28.9 (25.7-32.2) pg MCHC 32.3 (32.2-35.5) g/dl RDW Std Deviation 48.6 H (35.1-43.9) fL Plt Count 228 (163-337) K/mm3 MPV 11.5 (9.4-12.3) fl Neut % (Auto) 82.2 H (34.0-67.9) % Lymph % (Auto) 7.9 L (21.8-53.1) % Caswell % (Auto) 8.5 (5.3-12.2) % Eos % (Auto) 1.0 (0.8-7.0) Baso % (Auto) 0.2 (0.1-1.2) % Neut # (Auto) 10.02 H (1.78-5.38) K/mm3 Lymph # (Auto) 0.96 L (1.32-3.57) K/mm3 [place] # (Auto) 1.04 H (0.30-0.82) K/mm3 Eos # (Auto) 0.12 (0.04-0.54) K/mm3 Baso # (Auto) 0.03 (0.01-0.08) K/mm3 Manual Slide Review Abnormal smear PT 10.8 (9.7-12.0) SECONDS INR 1.01 APTT 26.4 (21.7-31.4) SECONDS Sodium 137 (136-145) mEq/L Potassium 6.0 H (3.5-5.1) mEq/L Chloride 105 (98-107) mEq/L Carbon Dioxide 17 L (21-32) mEq/L Anion Gap 21.0 H (5-15) BUN 73 H D (7-18) mg/dL Creatinine 1.8 H (0.7-1.3) mg/dL Est Cr Clr Drug Dosing TNP Estimated GFR (MDRD) 37 (>60) mL/min BUN/Creatinine Ratio 40.6 H (14-18) Glucose 188 H (83-115) mg/dL POC Glucose (83-110) mg/dL Lactic Acid (0.4-2.0) mmol/L Calcium 9.0 (8.5-10.1) mg/dL Magnesium 2.5 H (1.8-2.4) mg/dl Total Bilirubin 0.4 (0.2-1.0) mg/dL AST 18 (15-37) U/L ALT 26 (16-63) U/L Alkaline Phosphatase 109 (46-116) U/L Ammonia (11-32) umol/L Troponin I < 0.017 (0.00-0.056) ng/mL C-Reactive Protein 0.2 (<1.0) mg/dL Total Protein 7.2 (6.4-8.2) g/dl Albumin 4.0 (3.4-5.0) g/dl Globulin 3.2 gm/dL Albumin/Globulin Ratio 1.3 (1-2) Urine Color (Yellow) Urine Appearance (Clear) Urine pH (5.0-8.0) Ur Specific Webb (1.005-1.030) Urine Protein (Negative) Urine Glucose (UA) (Negative) Urine Ketones (Negative) Urine Occult Blood (Negative) Urine Nitrite (Negative) Urine Bilirubin (Negative) Urine Urobilinogen (0.2-1.0) Ur Leukocyte Esterase (Negative) Urine RBC (0-5) /hpf Urine WBC (0-5) /hpf Ur Squamous Epith Cells (0-5) /hpf Urine Bacteria (FEW) /hpf Urine Mucus (FEW) /hpf SARS-CoV-2 RNA (TAYLOR) (NEGATIVE) 11/21/20 11/21/20 11/21/20 Range/Units 15:15 15:27 15:30 WBC (4.23-9.07) K/mm3 RBC (4.63-6.08) M/mm3 Hgb (13.7-17.5) gm/dl Hct (40.1-51.0) % MCV (79.0-92.2) fl MCH (25.7-32.2) pg MCHC (32.2-35.5) g/dl RDW Std Deviation (35.1-43.9) fL Plt Count (163-337) K/mm3 MPV (9.4-12.3) fl Neut % (Auto) (34.0-67.9) % Lymph % (Auto) (21.8-53.1) % [place] % (Auto) (5.3-12.2) % Eos % (Auto) (0.8-7.0) Baso % (Auto) (0.1-1.2) % Neut # (Auto) (1.78-5.38) K/mm3 Lymph # (Auto) (1.32-3.57) K/mm3 [place] # (Auto) (0.30-0.82) K/mm3 Eos # (Auto) (0.04-0.54) K/mm3 Baso # (Auto) (0.01-0.08) K/mm3 Manual Slide Review PT (9.7-12.0) SECONDS INR APTT (21.7-31.4) SECONDS Sodium (136-145) mEq/L Potassium (3.5-5.1) mEq/L Chloride (98-107) mEq/L Carbon Dioxide (21-32) mEq/L Anion Gap (5-15) BUN (7-18) mg/dL Creatinine (0.7-1.3) mg/dL Est Cr Clr Drug Dosing Estimated GFR (MDRD) (>60) mL/min BUN/Creatinine Ratio (14-18) Glucose (83-115) mg/dL POC Glucose 180 H (83-110) mg/dL Lactic Acid 1.6 (0.4-2.0) mmol/L Calcium (8.5-10.1) mg/dL Magnesium (1.8-2.4) mg/dl Total Bilirubin (0.2-1.0) mg/dL AST (15-37) U/L ALT (16-63) U/L Alkaline Phosphatase (46-116) U/L Ammonia (11-32) umol/L Troponin I (0.00-0.056) ng/mL C-Reactive Protein (<1.0) mg/dL Total Protein (6.4-8.2) g/dl Albumin (3.4-5.0) g/dl Globulin gm/dL Albumin/Globulin Ratio (1-2) Urine Color (Yellow) Urine Appearance (Clear) Urine pH (5.0-8.0) Ur Specific Webb (1.005-1.030) Urine Protein (Negative) Urine Glucose (UA) (Negative) Urine Ketones (Negative) Urine Occult Blood (Negative) Urine Nitrite (Negative) Urine Bilirubin (Negative) Urine Urobilinogen (0.2-1.0) Ur Leukocyte Esterase (Negative) Urine RBC (0-5) /hpf Urine WBC (0-5) /hpf Ur Squamous Epith Cells (0-5) /hpf Urine Bacteria (FEW) /hpf Urine Mucus (FEW) /hpf SARS-CoV-2 RNA (TAYLOR) Negative (NEGATIVE) 11/21/20 11/21/20 Range/Units 15:52 16:14 WBC (4.23-9.07) K/mm3 RBC (4.63-6.08) M/mm3 Hgb (13.7-17.5) gm/dl Hct (40.1-51.0) % MCV (79.0-92.2) fl MCH (25.7-32.2) pg MCHC (32.2-35.5) g/dl RDW Std Deviation (35.1-43.9) fL Plt Count (163-337) K/mm3 MPV (9.4-12.3) fl Neut % (Auto) (34.0-67.9) % Lymph % (Auto) (21.8-53.1) % [place] % (Auto) (5.3-12.2) % Eos % (Auto) (0.8-7.0) Baso % (Auto) (0.1-1.2) % Neut # (Auto) (1.78-5.38) K/mm3 Lymph # (Auto) (1.32-3.57) K/mm3 [place] # (Auto) (0.30-0.82) K/mm3 Eos # (Auto) (0.04-0.54) K/mm3 Baso # (Auto) (0.01-0.08) K/mm3 Manual Slide Review PT (9.7-12.0) SECONDS INR APTT (21.7-31.4) SECONDS Sodium (136-145) mEq/L Potassium (3.5-5.1) mEq/L Chloride (98-107) mEq/L Carbon Dioxide (21-32) mEq/L Anion Gap (5-15) BUN (7-18) mg/dL Creatinine (0.7-1.3) mg/dL Est Cr Clr Drug Dosing Estimated GFR (MDRD) (>60) mL/min BUN/Creatinine Ratio (14-18) Glucose (83-115) mg/dL POC Glucose (83-110) mg/dL Lactic Acid (0.4-2.0) mmol/L Calcium (8.5-10.1) mg/dL Magnesium (1.8-2.4) mg/dl Total Bilirubin (0.2-1.0) mg/dL AST (15-37) U/L ALT (16-63) U/L Alkaline Phosphatase (46-116) U/L Ammonia 14 (11-32) umol/L Troponin I (0.00-0.056) ng/mL C-Reactive Protein (<1.0) mg/dL Total Protein (6.4-8.2) g/dl Albumin (3.4-5.0) g/dl Globulin gm/dL Albumin/Globulin Ratio (1-2) Urine Color Yellow (Yellow) Urine Appearance Cloudy H (Clear) Urine pH 7.0 (5.0-8.0) Ur Specific Webb 1.020 (1.005-1.030) Urine Protein 1+ H (Negative) Urine Glucose (UA) Trace H (Negative) Urine Ketones Negative (Negative) Urine Occult Blood 1+ H (Negative) Urine Nitrite Negative (Negative) Urine Bilirubin Negative (Negative) Urine Urobilinogen 0.2 (0.2-1.0) Ur Leukocyte Esterase 1+ H (Negative) Urine RBC 5-10 H (0-5) /hpf Urine WBC 20-30 H (0-5) /hpf Ur Squamous Epith Cells 0-5 (0-5) /hpf Urine Bacteria Many H (FEW) /hpf Urine Mucus Few (FEW) /hpf SARS-CoV-2 RNA (TAYLOR) (NEGATIVE) Meds: Medications Generic Name Dose Route Start Last Admin Trade Name Last PRN Reason Stop Dose Admin Sodium Chloride 100 mls @ 75 mls/hr 11/21/20 16:00 Normal Saline IV ASDIRECTED [facility] Lactated Ringer's 1,000 mls @ 1,000 mls/hr 11/21/20 16:55 Ringers, Lactated IV 11/21/20 17:54 .BOLUS ONE Lactated Ringer's 250 mls @ 250 mls/hr 11/21/20 16:56 Ringers, Lactated IV 11/21/20 17:55 .BOLUS ONE Sodium Chloride 10 ml 11/21/20 15:49 11/21/20 16:31 Sodium Chloride 0.9% 10 Ml Syringe FLUSH 10 ml ONETIME PRN Administration IV FLUSH Discontinued Medications Generic Name Dose Route Start Last Admin Trade Name Last PRN Reason Stop Dose Admin Albuterol 2.5 mg 11/21/20 16:58 Albuterol 0.083% 2.5 Mg/3 Ml Neb Soln NEB 11/21/20 16:59 ONETIME ONE Calcium Gluconate 1 gm 11/21/20 17:03 Calcium Gluconate 10% 1 Gm/10 Ml Sdv IVPUSH 11/21/20 17:04 ONETIME ONE Dextrose/Water 50 ml 11/21/20 16:59 50% Dextrose In Water 50 Ml Syringe IVPUSH 11/21/20 17:00 ONETIME ONE Sodium Chloride 1,000 mls @ 1,000 mls/hr 11/21/20 15:27 11/21/20 15:36 Normal Saline IV 11/21/20 16:26 1,000 mls/hr ONETIME ONE Administration Ceftriaxone Sodium 2 gm/ 100 mls @ 200 mls/hr 11/21/20 15:43 11/21/20 16:31 Sodium Chloride IV 11/21/20 16:12 200 mls/hr ONETIME ONE Administration Insulin Human Regular 10 unit 11/21/20 17:03 Insulin Regular, Human 100 Units/Ml 3 Ml Vial IV 11/21/20 17:04 ONETIME ONE Iopamidol 100 ml 11/21/20 15:49 Iopamidol 755 Mg/Ml 100 Ml Bottle IVPUSH 11/21/20 15:50 ONETIME ONE Sodium Polystyrene Sulfonate 45 gm 11/21/20 17:03 Sodium Polystyrene Sulfonate 15 Gm/60 Ml Susp 60 Ml Bot PO 11/21/20 17:04 NOW ONE - Re-Assessments/Exams Free Text/Narrative Re-Assessment/Exam: 11/21/20 16:15 I ordered an IV NS 1L bolus, EKG, oxygen, CT of his head, chest, abdomen, pelvis, lactic acid blood cultures and UA. His blood pressure did come up some with some fluids. I am worried he is septic. I have ordered rocephin 2 grams IV. His EKG shows a NSR with no acute changes and no changes form prior EKG. 11/21/20 16:58 His WBC is elevated at 12.2. PT and PTT are negative. His K is elevated at 6. I ordered fluids, albuterol neb, D50 25grams IV, insulin R 10 units and calcium gluconate to help bring that down. His CO2 is low at 17. His anion gap is elevated at 21. His creatinine is elevated at 1.8. His glucose is elevated at 188. His lactic acid is normal at 1.6. His magnesium is elevated at 2.5. His ammonia is normal. His troponin is negative. His CRP is normal. His COVID [address] of his head shows chronic age related changes but no evidence of acute intracranial pathology. The CT of his chest shows no acute process involving the aorta. No pulmonary emboli. Indeterminate cavitary focus right mid lung. Considerations include infection versus neoplasm. The CT of his abdomen shows unremarkable CTA The patient has severe sepsis. I ordered a 30ml/kg bolus. He did respond to the first liter of fluid. His blood pressure went from 86 systolic to 100. He also has renal insufficiency and hyperkalemia. He is getting rocephin. It appears the source is his urine. He does have cavitary lesion to his right chest. I feel he does need to be admitted. I called Dr Serna and he agreed to the admission. Departure - Departure Time of Disposition: 17:30 Disposition: Admitted As Inpatient 66 Condition: Serious Clinical Impression: Severe sepsis, Lesion of lung, Renal insufficiency, Hyperkalemia UTI (urinary tract infection) Qualifiers: Urinary tract infection type: site unspecified Hematuria presence: without hematuria Qualified Code(s): N39.0 - Urinary tract infection, site not specified - Discharge Information Referrals: PCP,None [Ordering Only Provider] - Forms: ED Department Discharge Sepsis Event Note (ED) - Evaluation Sepsis Screening Result: No Definite Risk - Focused Exam Vital Signs: Vital Signs Temp Pulse Resp BP Pulse Ox 11/21/20 15:18 92.3 F L 67 18 95/60 96 - My Orders Last 24 Hours: My Active Orders 11/21/20 15:24 EKG Documentation Completion [RC] ASDIRECTED EKG 12 Lead [EK] Stat 11/21/20 15:27 Head wo Cont [CT] Stat 11/21/20 15:28 Blood Culture x2 Reflex Set [OM.PC] Stat 11/21/20 15:29 Chest Abdomen Pelvis w Cont [CT] Stat 11/21/20 15:47 CULTURE BLOOD [BC] Stat 11/21/20 15:49 Sodium Chloride 0.9% [Saline Flush] 10 ml FLUSH ONETIME PRN 11/21/20 15:52 CULTURE URINE [RM] Stat 11/21/20 16:00 Sodium Chloride 0.9% [Normal Saline] 100 ml IV ASDIRECTED 11/21/20 16:14 CULTURE BLOOD [BC] Stat 11/21/20 16:35 Oxygen Therapy Adult [Oxygen Therapy, ED] [RC] ASDIRECTED 11/21/20 16:55 Lactated Ringers [Ringers, Lactated] 1,000 ml IV .BOLUS 11/21/20 16:56 Lactated Ringers [Ringers, Lactated] 250 ml IV .BOLUS 11/21/20 16:58 RT Aerosol Therapy [RC] ASDIRECTED - Assessment/Plan Last 24 Hours: My Active Orders 11/21/20 15:24 EKG Documentation Completion [RC] ASDIRECTED EKG 12 Lead [EK] Stat 11/21/20 15:27 Head wo Cont [CT] Stat 11/21/20 15:28 Blood Culture x2 Reflex Set [OM.PC] Stat 11/21/20 15:29 Chest Abdomen Pelvis w Cont [CT] Stat 11/21/20 15:47 CULTURE BLOOD [BC] Stat 11/21/20 15:49 Sodium Chloride 0.9% [Saline Flush] 10 ml FLUSH ONETIME PRN 11/21/20 15:52 CULTURE URINE [RM] Stat 11/21/20 16:00 Sodium Chloride 0.9% [Normal Saline] 100 ml IV ASDIRECTED 11/21/20 16:14 CULTURE BLOOD [BC] Stat 11/21/20 16:35 Oxygen Therapy Adult [Oxygen Therapy, ED] [RC] ASDIRECTED 11/21/20 16:55 Lactated Ringers [Ringers, Lactated] 1,000 ml IV .BOLUS 11/21/20 16:56 Lactated Ringers [Ringers, Lactated] 250 ml IV .BOLUS 11/21/20 16:58 RT Aerosol Therapy [RC] ASDIRECTED
[2020-11-21] MEDS ORDERED: Lactated Ringers 1,000 ML IV ONE (16:55)
[2020-11-21] MEDS ORDERED: Lactated Ringers 250 ML IV ONE (16:56)
[2020-11-21] MEDS ORDERED: Albuterol 0.083% 2.5 MG/3 ML Neb Soln NEB ONE (16:58)
[2020-11-21] MEDS ORDERED: 50% Dextrose in Water 50 ML Syringe IVPUSH ONE (16:59)
[2020-11-21] MEDS ORDERED: Insulin Regular, Human 100 Units/ML 3 ML Vial IV ONE (17:03)
[2020-11-21] MEDS ORDERED: Sodium Polystyrene Sulfonate 15 GM/60 ML Susp 60 ML Bot PO ONE (17:03)
[2020-11-21] MEDS ORDERED: Calcium Gluconate 10% 1 GM/10 ML SDV IVPUSH ONE (17:03)
--- NOTE | 2020-11-21 17:37 | CT ---
Head CT Technique: Multiple axial sections through the brain were obtained. Intravenous contrast was not utilized. Reconstructed coronal and sagittal images were obtained. 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 Ventricles along with basal cisterns and sulci over the convexities are moderately prominent. Scattered areas of diminished density are noted within the periventricular white matter which is most likely due to small vessel ischemic demyelination change. Small areas of diminished density are noted within the basal ganglia compatible with old lacunar infarcts. No evidence of intracranial hemorrhage. No midline shift or mass-effect is seen. Bone window settings were reviewed. No acute calvarial finding is appreciated. Visualized mastoid and paranasal sinuses show nothing acute. Impression: 1. Senescent change as noted above. 2. No acute intracranial abnormality is identified. Diagnostic code #2 I agree with preliminary report from [facility], finalized on 11/21/20, 5:51 PM CDT
--- NOTE | 2020-11-21 18:36 | CT ---
CT chest Technique: Multiple axial sections to the chest were obtained. Intravenous contrast was utilized. Study was performed as a CT angiogram protocol. Comparison: No prior chest CT is available. Findings: Thoracic aorta shows no aneurysm. No dissection is noted. Visualized pulmonary artery shows no discrete filling defects. Mediastinum shows no adenopathy. 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 No mediastinal adenopathy is seen. No pericardial thickening is identified. Small to moderate sized hiatal hernia is seen. Calcified granuloma is noted within the right upper lung. There is a small cavity lesion within the right lower lung measuring about 1.4 cm. Lungs otherwise are clear. Impression: 1. 1.4 cm cavitary lesion within the right lower lung. This could represent atypical infection versus small neoplasm. 2. Other findings as noted above. Nothing acute is otherwise seen. Diagnostic code #9 I agree with preliminary report from [facility], finalized on 11/21/20, [address] abdomen and pelvis Technique: Multiple axial sections were obtained from above the dome of the diaphragm inferiorly through the pubic symphysis. Intravenous contrast was utilized. No oral contrast has been given. Study was performed as an aortogram exam. Comparison: Prior noncontrast CT abdomen and pelvis study 10/11/17. Findings: Abdominal aorta shows atherosclerotic irregularity. No aneurysm or dissection is seen. Celiac axis shows mild atheromatous change without focal occlusion or stenosis. Superior mesenteric artery shows mild atheromatous change without focal stenosis or occlusion. Inferior mesenteric artery appears within normal limits. Renal arteries show atherosclerotic change within the proximal renal arteries. No focal stenosis or occlusion is seen. Common iliac artery shows atherosclerotic change with no occlusion or stenosis. External iliac arteries show no stenosis or occlusion. Proximal internal iliac artery shows no focal stenosis or occlusion. Liver contains no focal parenchymal abnormality. Spleen appears within normal limits. Adrenal glands show no nodule. Pancreas shows no discrete abnormality. Kidneys show symmetric contrast enhancement with no hydronephrosis or mass being seen. No retroperitoneal adenopathy or mesenteric abnormalities are seen. Urinary ostomy is noted within the right lower abdomen. No ureteral dilatation is seen. Prior surgery is noted within the pelvis with what appears to be a cystectomy and prostatectomy. Multiple surgical clips are seen. No free fluid or inflammatory change is appreciated. Bone window settings were reviewed which show no acute osseous finding. Impression: 1. Mild atheromatous change. No focal stenosis or occlusion is seen within the abdominal aorta or within the major branch vessels. 2. Previous cystectomy and prostatectomy with urinary diversion. No hydronephrosis is seen of the ureters. 3. Hiatal hernia. Diagnostic code #2 I mildly disagree agree with preliminary report from [facility], finalized on 11/21/20, 6 PM CDT
[2020-11-21] MEDS ORDERED: Morphine 2 MG/ML SYRINGE IVPUSH PRN (18:45)
[2020-11-21] MEDS ORDERED: Promethazine 12.5 MG in Sodium Chloride 0.9% 50 ML IV PRN (18:45)
[2020-11-21] MEDS ORDERED: Acetaminophen 325 MG Tab PO PRN (18:45)
[2020-11-21] MEDS ORDERED: hydrALAZINE 20 MG/ML SDV IVPUSH PRN (19:00)
[2020-11-21] MEDS ORDERED: traMADol 50 MG Tab PO PRN (19:01)
--- NOTE | 2020-11-21 19:05 | PCM.HP.2 ---
H&P History of Present Illness - General Date of Service: 11/21/20 Admit Problem/Dx: Admission Diagnosis/Problem Admission Diagnosis/Problem Sepsis Source of Information: Patient, Provider - History of Present Illness Initial Comments - Free Text/Narative: Patient is a 79-year-old male with a history of hypertension, bladder cancer, s/p surgery with urostomy bag, and diabetes type 2 who was brought to the ER due to generalized weakness and confusion. Patient is a poor historian. Patient was found to be confused this afternoon and urinated on the floor. In the ER, she was found to be pale and cool. His temperature was 33.5. Her blood pressure was 95/64. His blood pressure was responsive to IV fluid resuscitation. After 1 L, his blood pressure went up to greater than 100. In total 2 to 3 L NS was given in the ER. Creatinine 1.8, potassium was a 6.0. 1 g calcium gluconate, Kayexalate 45 g, D50 and insulin were given in the ER. Urinalysis is a compatible with UTI. CT of the head negative. When I saw this patient in the ER, other than the symptoms mentioned above, he possibly had upper abdominal pain but denied abdomen tenderness. Otherwise denied headache, dizziness, chest pain, shortness of breath, nausea, vomiting, fever or chills. Abdominal Pain Score (Numeric/FACES): 5 - Related Data Allergies/Adverse Reactions: Allergies Allergy/AdvReac Type Severity Reaction Status Date / Time codeine Allergy Cannot Verified 10/10/20 01:20 Remember Home Medications: Home Meds Insulin Aspart [NovoLOG] 45 unit SQ DAILY 10/11/17 [History] Insulin Aspart [NovoLOG] 55 unit SQ BEDTIME 10/11/17 [History] Lisinopril 20 mg PO DAILY 10/11/17 [History] Memantine [Namenda] 10 mg PO BID 10/11/17 [History] Sertraline [Zoloft] 200 mg PO DAILY 10/11/17 [History] Fish Oil/[place]-3 Fatty Acids [Fish Oil 1,000 MG] 1 cap PO DAILY 10/10/20 [History] Hydrocodone/Acetaminophen [Hydrocodone-Acetamin 5-325 mg] 1 tab PO DAILY 10/10/20 [History] Simvastatin 20 mg PO BEDTIME 10/10/20 [History] Temazepam [Restoril] 15 mg PO BEDTIME PRN 10/10/20 [History] metFORMIN [Glucophage XR] 1,000 mg PO BID 10/10/20 [History] traZODone HCl [Trazodone HCl] 100 mg PO 10/10/20 [History] Empagliflozin [Jardiance] 10 mg PO DAILY 11/21/20 [History] Past Medical History - Past Health History Medical/Surgical History: Denies Medical/Surgical History (Bladder cancer) HEENT History: Reports: Hard of Hearing Other HEENT History: dentures Cardiovascular History: Reports: CAD, CO (x 4x 4) Gastrointestinal History: Reports: GERD, Hiatal Hernia Psychiatric History: Reports: Depression Endocrine/Metabolic History: Reports: Diabetes, Type II Hematologic History: Reports: Anticoagulation Therapy Oncologic (Cancer) History: Reports: Bladder (s/p surgical resection and one dose of CTx) - Past Surgical History HEENT Surgical History: Reports: Oral Surgery (Dentures) Cardiovascular Surgical History: Reports: Coronary Artery Stent (x 2x 2) GI Surgical History: Reports: Cholecystectomy (around 1989), Small Bowel Male Surgical History: Reports: Other (See Below) (Urostomy RLQ) Oncologic Surgical History: Reports: Other (See Below) (Cystectomy and prostatectomy for bladder cancer) Social & Family History - Family History Family Medical History: No Pertinent Family History (Denies genetic diseases in family) - Caffeine Use Caffeine Use: Reports: Coffee - Living Situation & Occupation Living situation: Reports: , with Family (Daughter + [id number]) Occupation: Retired H&P Review of Systems - Review of Systems: Review Of Systems: See Below General: Reports: Weakness HEENT: Reports: No Symptoms Pulmonary: Reports: No Symptoms Cardiovascular: Reports: No Symptoms Gastrointestinal: Reports: Diarrhea Genitourinary: Reports: No Symptoms Musculoskeletal: Reports: No Symptoms Skin: Reports: Pallor Psychiatric: Reports: No Symptoms, Confusion Neurological: Reports: Confusion Hematologic/Lymphatic: Reports: No Symptoms Immunologic: Reports: No Symptoms Exam - Exam Exam: See Below - Vital Signs Vital Signs: Last Vital Signs Temp 36.0 C L 11/21/20 18:09 Pulse 80 11/21/20 18:09 Resp 14 11/21/20 18:09 BP 102/55 L 11/21/20 18:09 Pulse Ox 96 11/21/20 18:09 Weight: 74.843 kg - Exam General: Alert (A+Ox1-2), Cooperative HEENT: EOMI, Pupils Equal, Pupils Reactive Neck: Supple, Trachea Midline, Full Range of Motion Lungs: Clear to Auscultation, Normal Respiratory Effort Cardiovascular: Regular Rate, Regular Rhythm, Normal S1, Normal S2 GI/Abdominal Exam: Normal Bowel Sounds, Soft, Non-Tender, No Organomegaly, No D istention (Male) Exam: Other (urostomy bag) Extremities: Normal Inspection, Normal Range of Motion, Non-Tender, No Pedal Edema Skin: Dry, Intact, Cool Neurological: Reflexes Equal Bilateral, Strength Equal Bilateral, Normal Speech, Normal Tone Neuro Extensive - Mental Status: Alert, Normal Mood/Affect Neuro Extensive - Motor, Sensory, Reflexes: CN II-XII Intact, Normal Reflexes Psychiatric: Normal Affect, Normal Mood - Patient Data Lab Results Last 24 hrs: Laboratory Results - last 24 hr 11/21/20 11/21/20 11/21/20 Range/Units 15:15 15:15 15:15 WBC 12.20 H (4.23-9.07) K/mm3 RBC 5.75 (4.63-6.08) M/mm3 Hgb 16.6 (13.7-17.5) gm/dl Hct 51.4 H (40.1-51.0) % MCV 89.4 D (79.0-92.2) fl MCH 28.9 (25.7-32.2) pg MCHC 32.3 (32.2-35.5) g/dl RDW Std Deviation 48.6 H (35.1-43.9) fL Plt Count 228 (163-337) K/mm3 MPV 11.5 (9.4-12.3) fl Neut % (Auto) 82.2 H (34.0-67.9) % Lymph % (Auto) 7.9 L (21.8-53.1) % [place] % (Auto) 8.5 (5.3-12.2) % Eos % (Auto) 1.0 (0.8-7.0) Baso % (Auto) 0.2 (0.1-1.2) % Neut # (Auto) 10.02 H (1.78-5.38) K/mm3 Lymph # (Auto) 0.96 L (1.32-3.57) K/mm3 [place] # (Auto) 1.04 H (0.30-0.82) K/mm3 Eos # (Auto) 0.12 (0.04-0.54) K/mm3 Baso # (Auto) 0.03 (0.01-0.08) K/mm3 Manual Slide Review Abnormal smear PT 10.8 (9.7-12.0) SECONDS INR 1.01 APTT 26.4 (21.7-31.4) SECONDS Sodium 137 (136-145) mEq/L Potassium 6.0 H (3.5-5.1) mEq/L Chloride 105 (98-107) mEq/L Carbon Dioxide 17 L (21-32) mEq/L Anion Gap 21.0 H (5-15) BUN 73 H D (7-18) mg/dL Creatinine 1.8 H (0.7-1.3) mg/dL Est Cr Clr Drug Dosing TNP Estimated GFR (MDRD) 37 (>60) mL/min BUN/Creatinine Ratio 40.6 H (14-18) Glucose 188 H (83-115) mg/dL POC Glucose (83-110) mg/dL Lactic Acid (0.4-2.0) mmol/L Calcium 9.0 (8.5-10.1) mg/dL Magnesium 2.5 H (1.8-2.4) mg/dl Total Bilirubin 0.4 (0.2-1.0) mg/dL AST 18 (15-37) U/L ALT 26 (16-63) U/L Alkaline Phosphatase 109 (46-116) U/L Ammonia (11-32) umol/L Troponin I < 0.017 (0.00-0.056) ng/mL C-Reactive Protein 0.2 (<1.0) mg/dL Total Protein 7.2 (6.4-8.2) g/dl Albumin 4.0 (3.4-5.0) g/dl Globulin 3.2 gm/dL Albumin/Globulin Ratio 1.3 (1-2) Urine Color (Yellow) Urine Appearance (Clear) Urine pH (5.0-8.0) Ur Specific [place] (1.005-1.030) Urine Protein (Negative) Urine Glucose (UA) (Negative) Urine Ketones (Negative) Urine Occult Blood (Negative) Urine Nitrite (Negative) Urine Bilirubin (Negative) Urine Urobilinogen (0.2-1.0) Ur Leukocyte Esterase (Negative) Urine RBC (0-5) /hpf Urine WBC (0-5) /hpf Ur Squamous Epith Cells (0-5) /hpf Urine Bacteria (FEW) /hpf Urine Mucus (FEW) /hpf SARS-CoV-2 RNA (TAYLOR) (NEGATIVE) 11/21/20 11/21/20 11/21/20 Range/Units 15:15 15:27 15:30 WBC (4.23-9.07) K/mm3 RBC (4.63-6.08) M/mm3 Hgb (13.7-17.5) gm/dl Hct (40.1-51.0) % MCV (79.0-92.2) fl MCH (25.7-32.2) pg MCHC (32.2-35.5) g/dl RDW Std Deviation (35.1-43.9) fL Plt Count (163-337) K/mm3 MPV (9.4-12.3) fl Neut % (Auto) (34.0-67.9) % Lymph % (Auto) (21.8-53.1) % [place] % (Auto) (5.3-12.2) % Eos % (Auto) (0.8-7.0) Baso % (Auto) (0.1-1.2) % Neut # (Auto) (1.78-5.38) K/mm3 Lymph # (Auto) (1.32-3.57) K/mm3 [place] # (Auto) (0.30-0.82) K/mm3 Eos # (Auto) (0.04-0.54) K/mm3 Baso # (Auto) (0.01-0.08) K/mm3 Manual Slide Review PT (9.7-12.0) SECONDS INR APTT (21.7-31.4) SECONDS Sodium (136-145) mEq/L Potassium (3.5-5.1) mEq/L Chloride (98-107) mEq/L Carbon Dioxide (21-32) mEq/L Anion Gap (5-15) BUN (7-18) mg/dL Creatinine (0.7-1.3) mg/dL Est Cr Clr Drug Dosing Estimated GFR (MDRD) (>60) mL/min BUN/Creatinine Ratio (14-18) Glucose (83-115) mg/dL POC Glucose 180 H (83-110) mg/dL Lactic Acid 1.6 (0.4-2.0) mmol/L Calcium (8.5-10.1) mg/dL Magnesium (1.8-2.4) mg/dl Total Bilirubin (0.2-1.0) mg/dL AST (15-37) U/L ALT (16-63) U/L Alkaline Phosphatase (46-116) U/L Ammonia (11-32) umol/L Troponin I (0.00-0.056) ng/mL C-Reactive Protein (<1.0) mg/dL Total Protein (6.4-8.2) g/dl Albumin (3.4-5.0) g/dl Globulin gm/dL Albumin/Globulin Ratio (1-2) Urine Color (Yellow) Urine Appearance (Clear) Urine pH (5.0-8.0) Ur Specific [place] (1.005-1.030) Urine Protein (Negative) Urine Glucose (UA) (Negative) Urine Ketones (Negative) Urine Occult Blood (Negative) Urine Nitrite (Negative) Urine Bilirubin (Negative) Urine Urobilinogen (0.2-1.0) Ur Leukocyte Esterase (Negative) Urine RBC (0-5) /hpf Urine WBC (0-5) /hpf Ur Squamous Epith Cells (0-5) /hpf Urine Bacteria (FEW) /hpf Urine Mucus (FEW) /hpf SARS-CoV-2 RNA (TAYLOR) Negative (NEGATIVE) 11/21/20 11/21/20 Range/Units 15:52 16:14 WBC (4.23-9.07) K/mm3 RBC (4.63-6.08) M/mm3 Hgb (13.7-17.5) gm/dl Hct (40.1-51.0) % MCV (79.0-92.2) fl MCH (25.7-32.2) pg MCHC (32.2-35.5) g/dl RDW Std Deviation (35.1-43.9) fL Plt Count (163-337) K/mm3 MPV (9.4-12.3) fl Neut % (Auto) (34.0-67.9) % Lymph % (Auto) (21.8-53.1) % [place] % (Auto) (5.3-12.2) % Eos % (Auto) (0.8-7.0) Baso % (Auto) (0.1-1.2) % Neut # (Auto) (1.78-5.38) K/mm3 Lymph # (Auto) (1.32-3.57) K/mm3 [place] # (Auto) (0.30-0.82) K/mm3 Eos # (Auto) (0.04-0.54) K/mm3 Baso # (Auto) (0.01-0.08) K/mm3 Manual Slide Review PT (9.7-12.0) SECONDS INR APTT (21.7-31.4) SECONDS Sodium (136-145) mEq/L Potassium (3.5-5.1) mEq/L Chloride (98-107) mEq/L Carbon Dioxide (21-32) mEq/L Anion Gap (5-15) BUN (7-18) mg/dL Creatinine (0.7-1.3) mg/dL Est Cr Clr Drug Dosing Estimated GFR (MDRD) (>60) mL/min BUN/Creatinine Ratio (14-18) Glucose (83-115) mg/dL POC Glucose (83-110) mg/dL Lactic Acid (0.4-2.0) mmol/L Calcium (8.5-10.1) mg/dL Magnesium (1.8-2.4) mg/dl Total Bilirubin (0.2-1.0) mg/dL AST (15-37) U/L ALT (16-63) U/L Alkaline Phosphatase (46-116) U/L Ammonia 14 (11-32) umol/L Troponin I (0.00-0.056) ng/mL C-Reactive Protein (<1.0) mg/dL Total Protein (6.4-8.2) g/dl Albumin (3.4-5.0) g/dl Globulin gm/dL Albumin/Globulin Ratio (1-2) Urine Color Yellow (Yellow) Urine Appearance Cloudy H (Clear) Urine pH 7.0 (5.0-8.0) Ur Specific [place] 1.020 (1.005-1.030) Urine Protein 1+ H (Negative) Urine Glucose (UA) Trace H (Negative) Urine Ketones Negative (Negative) Urine Occult Blood 1+ H (Negative) Urine Nitrite Negative (Negative) Urine Bilirubin Negative (Negative) Urine Urobilinogen 0.2 (0.2-1.0) Ur Leukocyte Esterase 1+ H (Negative) Urine RBC 5-10 H (0-5) /hpf Urine WBC 20-30 H (0-5) /hpf Ur Squamous Epith Cells 0-5 (0-5) /hpf Urine Bacteria Many H (FEW) /hpf Urine Mucus Few (FEW) /hpf SARS-CoV-2 RNA (TAYLOR) (NEGATIVE) Result Diagrams: 11/22/20 05:34 11/22/20 05:34 Sepsis Event Note - Evaluation Sepsis Screening Result: No Definite Risk - Focused Exam Vital Signs: Vital Signs Temp Pulse Resp BP Pulse Ox Pulse Ox 11/21/20 18:09 36.0 C L 80 14 102/55 L 96 11/21/20 17:00 35.8 C L 79 14 105/55 L 89 L 11/21/20 16:58 92 L 11/21/20 15:18 33.5 C L 67 18 95/60 96 Problem List Initiated/Reviewed/Updated: Yes Orders Last 24hrs: Active Orders 24 hr Category Date Time Status Patient Status [ADT] Routine ADT 11/21/20 17:39 Active Bedrest Bedside Commode [RC] ASDIRECTED Care 11/21/20 18:45 Ordered Cardiac Monitoring [RC] CONTINUOUS Care 11/21/20 18:46 Ordered EKG Documentation Completion [RC] ASDIRECTED Care 11/21/20 15:24 Active Height and Weight [RC] DAILY Care 11/21/20 18:45 Ordered Intake and Output [RC] QSHIFT Care 11/21/20 18:46 Ordered Oxygen Therapy Adult [Oxygen Therapy, ED] [RC] Care 11/21/20 16:35 Active ASDIRECTED Oxygen Therapy [RC] PRN Care 11/21/20 18:45 Ordered Pulse Oximetry [RC] CONTINUOUS Care 11/21/20 18:46 Ordered RT Aerosol Therapy [RC] ASDIRECTED Care 11/21/20 16:58 Active VTE/DVT Education [RC] PER UNIT ROUTINE Care 11/21/20 18:45 Ordered Vital Signs [RC] Q4H Care 11/21/20 18:45 Ordered OT Evaluation and Treatment [CONS] Routine Cons 11/21/20 18:50 Ordered PT Evaluation and Treatment [CONS] Routine Cons 11/21/20 18:50 Ordered Clear Liquid Diet [DIET] Diet 11/21/20 Breakfast Ordered BASIC METABOLIC PANEL,BMP [CHEM] Routine Lab 11/21/20 19:03 Ordered BASIC METABOLIC PANEL,BMP [CHEM] Routine Lab 11/21/20 20:30 Ordered CBC WITH AUTO DIFF [HEME] DAILY Lab 11/22/20 05:00 Ordered CBC WITH AUTO DIFF [HEME] DAILY Lab 11/23/20 05:00 Ordered CBC WITH AUTO DIFF [HEME] DAILY Lab 11/24/20 05:00 Ordered CBC WITH AUTO DIFF [HEME] DAILY Lab 11/25/20 05:00 Ordered CBC WITH AUTO DIFF [HEME] DAILY Lab 11/26/20 05:00 Ordered CBC WITH AUTO DIFF [HEME] DAILY Lab 11/27/20 05:00 Ordered COMPREHENSIVE METABOLIC PN,CMP [CHEM] DAILY Lab 11/22/20 05:00 Ordered COMPREHENSIVE METABOLIC PN,CMP [CHEM] DAILY Lab 11/23/20 05:00 Ordered COMPREHENSIVE METABOLIC PN,CMP [CHEM] DAILY Lab 11/24/20 05:00 Ordered COMPREHENSIVE METABOLIC PN,CMP [CHEM] DAILY Lab 11/25/20 05:00 Ordered COMPREHENSIVE METABOLIC PN,CMP [CHEM] DAILY Lab 11/26/20 05:00 Ordered COMPREHENSIVE METABOLIC PN,CMP [CHEM] DAILY Lab 11/27/20 05:00 Ordered CULTURE BLOOD [BC] Stat Lab 11/21/20 15:47 Received CULTURE BLOOD [BC] Stat Lab 11/21/20 16:14 Received CULTURE URINE [RM] Stat Lab 11/21/20 15:52 Received INR,PT,PROTHROMBIN TIME [COAG] Routine Lab 11/21/20 18:50 Ordered TROPONIN I [CHEM] Q6H Lab 11/21/20 18:50 Ordered TROPONIN I [CHEM] Q6H Lab 11/22/20 00:50 Ordered Acetaminophen [TylenoL] Med 11/21/20 18:45 Ordered 650 mg PO Q6H PRN Heparin Sodium Med 11/21/20 18:45 Ordered 5,000 units SUBCUT Q8H Insulin Lispro [HumaLOG] Med 11/21/20 22:00 Ordered See Protocol SUBCUT QIDACANDBED Lactated Ringers [Ringers, Lactated] 1,000 ml Med 11/21/20 18:45 Ordered IV ASDIRECTED Memantine [Namenda] Med 11/21/20 21:00 Ordered 10 mg PO BID Morphine Med 11/21/20 18:45 Ordered 2 mg IVPUSH Q4H PRN Promethazine [Phenergan] 12.5 mg Med 11/21/20 18:45 Ordered Sodium Chloride 0.9% [Normal Saline] 50 ml IV Q6H Sertraline Med 11/22/20 09:00 Ordered 200 mg PO DAILY Simvastatin [Zocor] Med 11/21/20 21:00 Ordered 20 mg PO BEDTIME Sodium Chloride 0.9% [Normal Saline] 100 ml Med 11/21/20 16:00 Active IV ASDIRECTED Sodium Chloride 0.9% [Saline Flush] Med 11/21/20 15:49 Active 10 ml FLUSH ONETIME PRN cefTRIAXone [Rocephin] 1 gm Med 11/21/20 19:15 Ordered Sodium Chloride 0.9% [Normal Saline] 100 ml IV Q24H hydrALAZINE [Apresoline] Med 11/21/20 19:00 Ordered 10 mg IVPUSH Q4H PRN traMADol [Ultram] Med 11/21/20 19:01 Ordered 50 mg PO Q6H PRN Blood Culture x2 Reflex Set [OM.PC] Stat Oth 11/21/20 15:28 Ordered Resuscitation Status Routine Resus Stat 11/21/20 18:58 Ordered EKG 12 Lead [EK] Stat Ther 11/21/20 15:24 Ordered Medication Orders Acetaminophen (Acetaminophen 325 Mg Tab) 650 mg PO Q6H PRN PRN Reason: Pain (Mild 1-3)/fever Heparin Sodium (Porcine) (Heparin Sodium 5,000 Units/Ml Vial) 5,000 units SUBCUT Q8H GLORIA Hydralazine HCl (Hydralazine 20 Mg/Ml Sdv) 10 mg IVPUSH Q4H PRN PRN Reason: Hypertension Sodium Chloride (Normal Saline) 100 mls @ 75 mls/hr IV ASDIRECTED GLORIA Lactated Ringer's (Ringers, Lactated) 1,000 mls @ 65 mls/hr IV ASDIRECTED GLORIA Promethazine HCl 12.5 mg/ (Sodium Chloride) 50.5 mls @ 100 mls/hr IV Q6H PRN PRN Reason: Nausea/Vomiting Ceftriaxone Sodium 1 gm/ (Sodium Chloride) 100 mls @ 200 mls/hr IV Q24H GLORIA Insulin Human Lispro (Insulin Lispro 100 Unit/Ml) 0 unit SUBCUT QIDACANDBED SC H; Protocol Memantine (Memantine 10 Mg Tab) 10 mg PO BID GLORIA Morphine Sulfate (Morphine 2 Mg/Ml Syringe) 2 mg IVPUSH Q4H PRN PRN Reason: Pain (severe 7-10) Stop: 11/22/20 18:49 Sertraline HCl (Sertraline 50 Mg Tab) 200 mg PO DAILY GLORIA Simvastatin (Simvastatin 20 Mg Tab) 20 mg PO BEDTIME GLORIA Sodium Chloride (Sodium Chloride 0.9% 10 Ml Syringe) 10 ml FLUSH ONETIME PRN PRN Reason: IV FLUSH Last Admin: 11/21/20 16:31 Dose: 10 ml Documented by: SAPNA Tramadol HCl (Tramadol 50 Mg Tab) 50 mg PO Q6H PRN PRN Reason: Pain (moderate 4-6) Assessment/Plan Comment:: Patient is a 79-year-old male with a history of hypertension, bladder cancer, s/p surgery with urostomy bag, and diabetes type 2 who was brought to the ER due to generalized weakness and confusion. Assessment and plan: 1. AMS Etiology unknown. Most likely due to sepsis/infection. Pt also has demantia. He is on memantine 10mg bid. CT of head - no acute change Ammonia 14 Temazepam 15mg bedtime and trazodone 100mg are on hold Monitor 2. Severe sepsis 2nd to UTI, 3. Hypotension, was responsive to IVF resuscitation. Initial BP in the ER was 95/64. After 1L, SBP went up to >100. LA 1.6, CRP 0.2 Blood culture IV fluid Antibiotics 4. Acute hypoxic respiratory failure, Etiology unknown. CT chest showed cavitary lesion and calcified granuloma Troponin less than 0.017 x 3 in the ER, desaturation, needed 2-3L Pulse ox Oxygen therapy, maintain oxygen saturation greater than 92% 5. Hypothermia, it initially was 33.5c in the ER. It was up to 36.0 when I saw him in the ER. Monitor temperature and heart rate 6. UTI, 7. History of bladder cancer Urine compatible with UTI use of urostomy bag, bladder cancer, status post surgery 2g ceftriaxone was given. Urine culture 8. Hyperkalemia, 1g calcium glconage, Kayexalate 45g, D50 and 10units of insulin were given. EKG, monitor 9. LUCIUS or LUCIUS on CKD Unknown type and chronicity Avoid nephrotoxic meds Repeat the renal function in the morning 10. Lung cavitary lesion. CT chest showed 1/4cm cavitary leison within the right lower lung. It could represent atypical infecton vs small neoplasm. CT angio was performed at [facility] -thick walled cavitary focus measuring up to 1.4 cm in superior segment right lower lobe. Follow with PCP and support services specialist 11. Abdominal pain CT abd - no acute change Antibiotics 12. DM type 2 insulin aspart 45units daily is on hold Metformin 50mg bid and empagliflozin 10mg daily are on hold Insulin tier 2 Adjust insulin based on BG levels 13. HTN Lisinopril 10mg daily is on hold Hydralazine as needed 14. DVT prophylaxis: Heparin - Mortality Measure Prognosis:: Poor
[2020-11-21] MEDS ORDERED: Albuterol/Ipratropium 3.0-0.5 MG/3 ML Neb Soln NEB PRN (19:17)
[2020-11-21] MEDS: Simvastatin 20 MG Tab PO SCH ×2 (19:20→20:12)
[2020-11-21] MEDS: Heparin Sodium 5,000 Units/ML Vial SUBCUT SCH (19:20)
[2020-11-21] MEDS: Memantine 10 MG Tab PO SCH ×2 (19:20→20:12)
[2020-11-21] MEDS: Lactated Ringers 1,000 ML IV SCH (19:43)
[2020-11-21] MEDS: Insulin Lispro 100 UNIT/ML 10 ML Vial SUBCUT SCH (21:15)
[2020-11-22] MEDS: Heparin Sodium 5,000 Units/ML Vial SUBCUT SCH ×3 (01:46→18:14)
[2020-11-22] MEDS: Insulin Lispro 100 UNIT/ML 10 ML Vial SUBCUT SCH ×4 (06:13→21:28)
[2020-11-22] MEDS: Memantine 10 MG Tab PO SCH ×2 (08:31→21:22)
[2020-11-22] MEDS: Sertraline 50 MG Tab PO SCH (08:31)
[2020-11-22] MEDS ORDERED: Furosemide 20 MG/2 ML VIAL IVPUSH ONE (09:00)
[2020-11-22] MEDS: Sodium Polystyrene Sulfonate 15 GM/60 ML Susp 60 ML Bot PO SCH ×2 (10:05→14:45)
[2020-11-22] MEDS: Lactated Ringers 1,000 ML IV SCH (13:10)
--- NOTE | 2020-11-22 14:19 | PCM.PN ---
- General Info Date of Service: 11/22/20 Admission Dx/Problem (Free Text): Admission Diagnosis/Problem Admission Diagnosis/Problem Sepsis Subjective Update: Patient is a 79-year-old male with a history of hypertension, bladder cancer, s/p surgery with urostomy bag, and diabetes type 2 who was brought to the ER due to generalized weakness and confusion. Today patient feels better. He is more alert. Denies headache, dizziness, nausea, vomiting, fever, or chills. Temperature normalized. Blood pressure is improving He is on room air to 1 L with good oxygen saturation WBC trending down to 0.65 from 12.20 yesterday Potassium of 5.4, creatinine 1.6 Urine culture showed gram negative rods. Sensitivity pending - Review of Systems Systems Review Comment:: General: Reports: Weakness HEENT: Reports: No Symptoms Pulmonary: Reports: No Symptoms Cardiovascular: Reports: No Symptoms Gastrointestinal: Reports: Diarrhea Genitourinary: Reports: No Symptoms Musculoskeletal: Reports: No Symptoms Skin: Reports: Pallor Psychiatric: Reports: No Symptoms, Confusion Neurological: Reports: Confusion Hematologic/Lymphatic: Reports: No Symptoms Immunologic: Reports: No Symptoms - Patient Data Vitals - Most Recent: Last Vital Signs Temp 37.2 C 11/22/20 12:00 Pulse 83 11/22/20 04:00 Resp 14 11/22/20 08:00 BP 118/76 11/22/20 12:00 Pulse Ox 97 11/22/20 12:00 Weight - Most Recent: 74.843 kg I&O - Last 24 Hours: Intake & Output 11/21/20 11/22/20 11/22/20 22:59 06:59 14:59 Intake Total 1380 1200 Output Total 400 1450 920 Balance -400 -70 280 Lab Results Last 24 Hours: Laboratory Results - last 24 hr 11/21/20 11/21/20 11/21/20 Range/Units 15:15 15:15 15:15 WBC 12.20 H (4.23-9.07) K/mm3 RBC 5.75 (4.63-6.08) M/mm3 Hgb 16.6 (13.7-17.5) gm/dl Hct 51.4 H (40.1-51.0) % MCV 89.4 D (79.0-92.2) fl MCH 28.9 (25.7-32.2) pg MCHC 32.3 (32.2-35.5) g/dl RDW Std Deviation 48.6 H (35.1-43.9) fL Plt Count 228 (163-337) K/mm3 MPV 11.5 (9.4-12.3) fl Neut % (Auto) 82.2 H (34.0-67.9) % Lymph % (Auto) 7.9 L (21.8-53.1) % [place] % (Auto) 8.5 (5.3-12.2) % Eos % (Auto) 1.0 (0.8-7.0) Baso % (Auto) 0.2 (0.1-1.2) % Neut # (Auto) 10.02 H (1.78-5.38) K/mm3 Lymph # (Auto) 0.96 L (1.32-3.57) K/mm3 [place] # (Auto) 1.04 H (0.30-0.82) K/mm3 Eos # (Auto) 0.12 (0.04-0.54) K/mm3 Baso # (Auto) 0.03 (0.01-0.08) K/mm3 Manual Slide Review Abnormal smear PT 10.8 (9.7-12.0) SECONDS INR 1.01 APTT 26.4 (21.7-31.4) SECONDS Sodium 137 (136-145) mEq/L Potassium 6.0 H (3.5-5.1) mEq/L Chloride 105 (98-107) mEq/L Carbon Dioxide 17 L (21-32) mEq/L Anion Gap 21.0 H (5-15) BUN 73 H D (7-18) mg/dL Creatinine 1.8 H (0.7-1.3) mg/dL Est Cr Clr Drug Dosing TNP Estimated GFR (MDRD) 37 (>60) mL/min BUN/Creatinine Ratio 40.6 H (14-18) Glucose 188 H (83-115) mg/dL POC Glucose (83-110) mg/dL Lactic Acid (0.4-2.0) mmol/L Calcium 9.0 (8.5-10.1) mg/dL Magnesium 2.5 H (1.8-2.4) mg/dl Total Bilirubin 0.4 (0.2-1.0) mg/dL AST 18 (15-37) U/L ALT 26 (16-63) U/L Alkaline Phosphatase 109 (46-116) U/L Ammonia (11-32) umol/L Troponin I < 0.017 (0.00-0.056) ng/mL C-Reactive Protein 0.2 (<1.0) mg/dL Total Protein 7.2 (6.4-8.2) g/dl Albumin 4.0 (3.4-5.0) g/dl Globulin 3.2 gm/dL Albumin/Globulin Ratio 1.3 (1-2) Urine Color (Yellow) Urine Appearance (Clear) Urine pH (5.0-8.0) Ur Specific [place] (1.005-1.030) Urine Protein (Negative) Urine Glucose (UA) (Negative) Urine Ketones (Negative) Urine Occult Blood (Negative) Urine Nitrite (Negative) Urine Bilirubin (Negative) Urine Urobilinogen (0.2-1.0) Ur Leukocyte Esterase (Negative) Urine RBC (0-5) /hpf Urine WBC (0-5) /hpf Ur Squamous Epith Cells (0-5) /hpf Urine Bacteria (FEW) /hpf Urine Mucus (FEW) /hpf SARS-CoV-2 RNA ([facility]OR) (NEGATIVE) 11/21/20 11/21/20 11/21/20 Range/Units 15:15 15:27 15:30 WBC (4.23-9.07) K/mm3 RBC (4.63-6.08) M/mm3 Hgb (13.7-17.5) gm/dl Hct (40.1-51.0) % MCV (79.0-92.2) fl MCH (25.7-32.2) pg MCHC (32.2-35.5) g/dl RDW Std Deviation (35.1-43.9) fL Plt Count (163-337) K/mm3 MPV (9.4-12.3) fl Neut % (Auto) (34.0-67.9) % Lymph % (Auto) (21.8-53.1) % [place] % (Auto) (5.3-12.2) % Eos % (Auto) (0.8-7.0) Baso % (Auto) (0.1-1.2) % Neut # (Auto) (1.78-5.38) K/mm3 Lymph # (Auto) (1.32-3.57) K/mm3 [place] # (Auto) (0.30-0.82) K/mm3 Eos # (Auto) (0.04-0.54) K/mm3 Baso # (Auto) (0.01-0.08) K/mm3 Manual Slide Review PT (9.7-12.0) SECONDS INR APTT (21.7-31.4) SECONDS Sodium (136-145) mEq/L Potassium (3.5-5.1) mEq/L Chloride (98-107) mEq/L Carbon Dioxide (21-32) mEq/L Anion Gap (5-15) BUN (7-18) mg/dL Creatinine (0.7-1.3) mg/dL Est Cr Clr Drug Dosing Estimated GFR (MDRD) (>60) mL/min BUN/Creatinine Ratio (14-18) Glucose (83-115) mg/dL POC Glucose 180 H (83-110) mg/dL Lactic Acid 1.6 (0.4-2.0) mmol/L Calcium (8.5-10.1) mg/dL Magnesium (1.8-2.4) mg/dl Total Bilirubin (0.2-1.0) mg/dL AST (15-37) U/L ALT (16-63) U/L Alkaline Phosphatase (46-116) U/L Ammonia (11-32) umol/L Troponin I (0.00-0.056) ng/mL C-Reactive Protein (<1.0) mg/dL Total Protein (6.4-8.2) g/dl Albumin (3.4-5.0) g/dl Globulin gm/dL Albumin/Globulin Ratio (1-2) Urine Color (Yellow) Urine Appearance (Clear) Urine pH (5.0-8.0) Ur Specific [place] (1.005-1.030) Urine Protein (Negative) Urine Glucose (UA) (Negative) Urine Ketones (Negative) Urine Occult Blood (Negative) Urine Nitrite (Negative) Urine Bilirubin (Negative) Urine Urobilinogen (0.2-1.0) Ur Leukocyte Esterase (Negative) Urine RBC (0-5) /hpf Urine WBC (0-5) /hpf Ur Squamous Epith Cells (0-5) /hpf Urine Bacteria (FEW) /hpf Urine Mucus (FEW) /hpf SARS-CoV-2 RNA ([facility]OR) Negative (NEGATIVE) 11/21/20 11/21/20 11/21/20 Range/Units 15:52 16:14 19:05 WBC (4.23-9.07) K/mm3 RBC (4.63-6.08) M/mm3 Hgb (13.7-17.5) gm/dl Hct (40.1-51.0) % MCV (79.0-92.2) fl MCH (25.7-32.2) pg MCHC (32.2-35.5) g/dl RDW Std Deviation (35.1-43.9) fL Plt Count (163-337) K/mm3 MPV (9.4-12.3) fl Neut % (Auto) (34.0-67.9) % Lymph % (Auto) (21.8-53.1) % [place] % (Auto) (5.3-12.2) % Eos % (Auto) (0.8-7.0) Baso % (Auto) (0.1-1.2) % Neut # (Auto) (1.78-5.38) K/mm3 Lymph # (Auto) (1.32-3.57) K/mm3 [place] # (Auto) (0.30-0.82) K/mm3 Eos # (Auto) (0.04-0.54) K/mm3 Baso # (Auto) (0.01-0.08) K/mm3 Manual Slide Review PT 11.1 (9.7-12.0) SECONDS INR 1.04 APTT (21.7-31.4) SECONDS Sodium (136-145) mEq/L Potassium (3.5-5.1) mEq/L Chloride (98-107) mEq/L Carbon Dioxide (21-32) mEq/L Anion Gap (5-15) BUN (7-18) mg/dL Creatinine (0.7-1.3) mg/dL Est Cr Clr Drug Dosing Estimated GFR (MDRD) (>60) mL/min BUN/Creatinine Ratio (14-18) Glucose (83-115) mg/dL POC Glucose (83-110) mg/dL Lactic Acid (0.4-2.0) mmol/L Calcium (8.5-10.1) mg/dL Magnesium (1.8-2.4) mg/dl Total Bilirubin (0.2-1.0) mg/dL AST (15-37) U/L ALT (16-63) U/L Alkaline Phosphatase (46-116) U/L Ammonia 14 (11-32) umol/L Troponin I (0.00-0.056) ng/mL C-Reactive Protein (<1.0) mg/dL Total Protein (6.4-8.2) g/dl Albumin (3.4-5.0) g/dl Globulin gm/dL Albumin/Globulin Ratio (1-2) Urine Color Yellow (Yellow) Urine Appearance Cloudy H (Clear) Urine pH 7.0 (5.0-8.0) Ur Specific [place] 1.020 (1.005-1.030) Urine Protein 1+ H (Negative) Urine Glucose (UA) Trace H (Negative) Urine Ketones Negative (Negative) Urine Occult Blood 1+ H (Negative) Urine Nitrite Negative (Negative) Urine Bilirubin Negative (Negative) Urine Urobilinogen 0.2 (0.2-1.0) Ur Leukocyte Esterase 1+ H (Negative) Urine RBC 5-10 H (0-5) /hpf Urine WBC 20-30 H (0-5) /hpf Ur Squamous Epith Cells 0-5 (0-5) /hpf Urine Bacteria Many H (FEW) /hpf Urine Mucus Few (FEW) /hpf SARS-CoV-2 RNA ([facility]) (NEGATIVE) 11/21/20 11/21/20 11/21/20 Range/Units 19:05 19:05 19:29 WBC (4.23-9.07) K/mm3 RBC (4.63-6.08) M/mm3 Hgb (13.7-17.5) gm/dl Hct (40.1-51.0) % MCV (79.0-92.2) fl MCH (25.7-32.2) pg MCHC (32.2-35.5) g/dl RDW Std Deviation (35.1-43.9) fL Plt Count (163-337) K/mm3 MPV (9.4-12.3) fl Neut % (Auto) (34.0-67.9) % Lymph % (Auto) (21.8-53.1) % [place] % (Auto) (5.3-12.2) % Eos % (Auto) (0.8-7.0) Baso % (Auto) (0.1-1.2) % Neut # (Auto) (1.78-5.38) K/mm3 Lymph # (Auto) (1.32-3.57) K/mm3 [place] # (Auto) (0.30-0.82) K/mm3 Eos # (Auto) (0.04-0.54) K/mm3 Baso # (Auto) (0.01-0.08) K/mm3 Manual Slide Review PT (9.7-12.0) SECONDS INR APTT (21.7-31.4) SECONDS Sodium 137 (136-145) mEq/L Potassium 5.7 H (3.5-5.1) mEq/L Chloride 105 (98-107) mEq/L Carbon Dioxide 18 L (21-32) mEq/L Anion Gap 19.7 H (5-15) BUN 69 H (7-18) mg/dL Creatinine 1.7 H (0.7-1.3) mg/dL Est Cr Clr Drug Dosing 31.80 Estimated GFR (MDRD) 39 (>60) mL/min BUN/Creatinine Ratio 40.6 H (14-18) Glucose 334 H (83-115) mg/dL POC Glucose 275 H (83-110) mg/dL Lactic Acid (0.4-2.0) mmol/L Calcium 8.6 (8.5-10.1) mg/dL Magnesium (1.8-2.4) mg/dl Total Bilirubin (0.2-1.0) mg/dL AST (15-37) U/L ALT (16-63) U/L Alkaline Phosphatase (46-116) U/L Ammonia (11-32) umol/L Troponin I < 0.017 (0.00-0.056) ng/mL C-Reactive Protein (<1.0) mg/dL Total Protein (6.4-8.2) g/dl Albumin (3.4-5.0) g/dl Globulin gm/dL Albumin/Globulin Ratio (1-2) Urine Color (Yellow) Urine Appearance (Clear) Urine pH (5.0-8.0) Ur Specific [place] (1.005-1.030) Urine Protein (Negative) Urine Glucose (UA) (Negative) Urine Ketones (Negative) Urine Occult Blood (Negative) Urine Nitrite (Negative) Urine Bilirubin (Negative) Urine Urobilinogen (0.2-1.0) Ur Leukocyte Esterase (Negative) Urine RBC (0-5) /hpf Urine WBC (0-5) /hpf Ur Squamous Epith Cells (0-5) /hpf Urine Bacteria (FEW) /hpf Urine Mucus (FEW) /hpf SARS-CoV-2 RNA ([facility]) (NEGATIVE) 11/21/20 11/22/20 11/22/20 Range/Units 21:08 01:01 05:34 WBC 9.65 H (4.23-9.07) K/mm3 RBC 4.91 (4.63-6.08) M/mm3 Hgb 14.9 D (13.7-17.5) gm/dl Hct 45.0 (40.1-51.0) % MCV 91.6 (79.0-92.2) fl MCH 30.3 (25.7-32.2) pg MCHC 33.1 (32.2-35.5) g/dl RDW Std Deviation 50.0 H (35.1-43.9) fL Plt Count 151 L D (163-337) K/mm3 MPV 11.4 (9.4-12.3) fl Neut % (Auto) 91.2 H (34.0-67.9) % Lymph % (Auto) 2.3 L (21.8-53.1) % [place] % (Auto) 6.1 (5.3-12.2) % Eos % (Auto) 0.1 L (0.8-7.0) Baso % (Auto) 0.1 (0.1-1.2) % Neut # (Auto) 8.80 H (1.78-5.38) K/mm3 Lymph # (Auto) 0.22 L (1.32-3.57) K/mm3 [place] # (Auto) 0.59 (0.30-0.82) K/mm3 Eos # (Auto) 0.01 L (0.04-0.54) K/mm3 Baso # (Auto) 0.01 (0.01-0.08) K/mm3 Manual Slide Review Abnormal smear PT (9.7-12.0) SECONDS INR APTT (21.7-31.4) SECONDS Sodium (136-145) mEq/L Potassium (3.5-5.1) mEq/L Chloride (98-107) mEq/L Carbon Dioxide (21-32) mEq/L Anion Gap (5-15) BUN (7-18) mg/dL Creatinine (0.7-1.3) mg/dL Est Cr Clr Drug Dosing Estimated GFR (MDRD) (>60) mL/min BUN/Creatinine Ratio (14-18) Glucose (83-115) mg/dL POC Glucose 221 H (83-110) mg/dL Lactic Acid (0.4-2.0) mmol/L Calcium (8.5-10.1) mg/dL Magnesium (1.8-2.4) mg/dl Total Bilirubin (0.2-1.0) mg/dL AST (15-37) U/L ALT (16-63) U/L Alkaline Phosphatase (46-116) U/L Ammonia (11-32) umol/L Troponin I < 0.017 (0.00-0.056) ng/mL C-Reactive Protein (<1.0) mg/dL Total Protein (6.4-8.2) g/dl Albumin (3.4-5.0) g/dl Globulin gm/dL Albumin/Globulin Ratio (1-2) Urine Color (Yellow) Urine Appearance (Clear) Urine pH (5.0-8.0) Ur Specific [place] (1.005-1.030) Urine Protein (Negative) Urine Glucose (UA) (Negative) Urine Ketones (Negative) Urine Occult Blood (Negative) Urine Nitrite (Negative) Urine Bilirubin (Negative) Urine Urobilinogen (0.2-1.0) Ur Leukocyte Esterase (Negative) Urine RBC (0-5) /hpf Urine WBC (0-5) /hpf Ur Squamous Epith Cells (0-5) /hpf Urine Bacteria (FEW) /hpf Urine Mucus (FEW) /hpf SARS-CoV-2 RNA ([facility]) (NEGATIVE) 11/22/20 11/22/20 11/22/20 Range/Units 05:34 06:10 12:35 WBC (4.23-9.07) K/mm3 RBC (4.63-6.08) M/mm3 Hgb (13.7-17.5) gm/dl Hct (40.1-51.0) % MCV (79.0-92.2) fl MCH (25.7-32.2) pg MCHC (32.2-35.5) g/dl RDW Std Deviation (35.1-43.9) fL Plt Count (163-337) K/mm3 MPV (9.4-12.3) fl Neut % (Auto) (34.0-67.9) % Lymph % (Auto) (21.8-53.1) % [place] % (Auto) (5.3-12.2) % Eos % (Auto) (0.8-7.0) Baso % (Auto) (0.1-1.2) % Neut # (Auto) (1.78-5.38) K/mm3 Lymph # (Auto) (1.32-3.57) K/mm3 [place] # (Auto) (0.30-0.82) K/mm3 Eos # (Auto) (0.04-0.54) K/mm3 Baso # (Auto) (0.01-0.08) K/mm3 Manual Slide Review PT (9.7-12.0) SECONDS INR APTT (21.7-31.4) SECONDS Sodium 141 (136-145) mEq/L Potassium 5.4 H (3.5-5.1) mEq/L Chloride 110 H (98-107) mEq/L Carbon Dioxide 20 L (21-32) mEq/L Anion Gap 16.4 H (5-15) BUN 60 H (7-18) mg/dL Creatinine 1.6 H (0.7-1.3) mg/dL Est Cr Clr Drug Dosing 33.78 Estimated GFR (MDRD) 42 (>60) mL/min BUN/Creatinine Ratio 37.5 H (14-18) Glucose 182 H (83-115) mg/dL POC Glucose 166 H 172 H (83-110) mg/dL Lactic Acid (0.4-2.0) mmol/L Calcium 8.8 (8.5-10.1) mg/dL Magnesium (1.8-2.4) mg/dl Total Bilirubin 0.3 (0.2-1.0) mg/dL AST 14 L (15-37) U/L ALT 21 (16-63) U/L Alkaline Phosphatase 88 (46-116) U/L Ammonia (11-32) umol/L Troponin I (0.00-0.056) ng/mL C-Reactive Protein (<1.0) mg/dL Total Protein 6.5 (6.4-8.2) g/dl Albumin 3.4 (3.4-5.0) g/dl Globulin 3.1 gm/dL Albumin/Globulin Ratio 1.1 (1-2) Urine Color (Yellow) Urine Appearance (Clear) Urine pH (5.0-8.0) Ur Specific [place] (1.005-1.030) Urine Protein (Negative) Urine Glucose (UA) (Negative) Urine Ketones (Negative) Urine Occult Blood (Negative) Urine Nitrite (Negative) Urine Bilirubin (Negative) Urine Urobilinogen (0.2-1.0) Ur Leukocyte Esterase (Negative) Urine RBC (0-5) /hpf Urine WBC (0-5) /hpf Ur Squamous Epith Cells (0-5) /hpf Urine Bacteria (FEW) /hpf Urine Mucus (FEW) /hpf SARS-CoV-2 RNA ([facility]) (NEGATIVE) Huey Results Last 24 Hours: Microbiology 11/21/20 15:52 Urine Culture - Preliminary Urine, Clean Catch Gram Negative Rods Med Orders - Current: Current Medications Acetaminophen (Acetaminophen 325 Mg Tab) 650 mg PO Q6H PRN PRN Reason: Pain (Mild 1-3)/fever Albuterol/Ipratropium (Albuterol/Ipratropium 3.0-0.5 Mg/3 Ml Neb Soln) 3 ml NEB Q4H PRN PRN Reason: Shortness Of Breath/wheezing Heparin Sodium (Porcine) (Heparin Sodium 5,000 Units/Ml Vial) 5,000 units SCHMITT BCUT Q8H [facility] Last Admin: 11/22/20 10:05 Dose: 5,000 units Documented by: Hydralazine HCl (Hydralazine 20 Mg/Ml Sdv) 10 mg IVPUSH Q4H PRN PRN Reason: Hypertension Lactated Ringer's (Ringers, Lactated) 1,000 mls @ 65 mls/hr IV ASDIRECTED [facility] Last Admin: 11/22/20 13:10 Dose: 65 mls/hr Documented by: Promethazine HCl 12.5 mg/ (Sodium Chloride) 50.5 mls @ 100 mls/hr IV Q6H PRN PRN Reason: Nausea/Vomiting Ceftriaxone Sodium 1 gm/ (Sodium Chloride) 100 mls @ 200 mls/hr IV Q24H [facility] Insulin Human Lispro (Insulin Lispro 100 Unit/Ml) 0 unit SUBCUT QIDACANDBED [facility]; Protocol Last Admin: 11/22/20 12:41 Dose: 2 units Documented by: Memantine (Memantine 10 Mg Tab) 10 mg PO BID [facility] Last Admin: 11/22/20 08:31 Dose: 10 mg Documented by: Morphine Sulfate (Morphine 2 Mg/Ml Syringe) 2 mg IVPUSH Q4H PRN PRN Reason: Pain (severe 7-10) Stop: 11/22/20 18:49 Sertraline HCl (Sertraline 50 Mg Tab) 200 mg PO DAILY [facility] Last Admin: 11/22/20 08:31 Dose: 200 mg Documented by: Simvastatin (Simvastatin 20 Mg Tab) 20 mg PO BEDTIME [facility] Last Admin: 11/21/20 20:12 Dose: Not Given Documented by: Sodium Polystyrene Sulfonate (Sodium Polystyrene Sulfonate 15 Gm/60 Ml Susp 60 Ml Bot) 15 gm PO Q6H [facility] Stop: 11/22/20 15:01 Last Admin: 11/22/20 10:05 Dose: 15 gm Documented by: Tramadol HCl (Tramadol 50 Mg Tab) 50 mg PO Q6H PRN PRN Reason: Pain (moderate 4-6) Discontinued Medications Albuterol (Albuterol 0.083% 2.5 Mg/3 Ml Neb Soln) 2.5 mg NEB ONETIME ONE Stop: 11/21/20 16:59 Last Admin: 11/21/20 17:52 Dose: 2.5 mg Documented by: Calcium Gluconate (Calcium Gluconate 10% 1 Gm/10 Ml Sdv) 1 gm IVPUSH ONETIME ONE Stop: 11/21/20 17:04 Last Admin: 11/21/20 17:49 Dose: 1 gm Documented by: Dextrose/Water (50% Dextrose In Water 50 Ml Syringe) 50 ml IVPUSH ONETIME ONE Stop: 11/21/20 17:00 Last Admin: 11/21/20 17:59 Dose: 50 ml Documented by: Furosemide (Furosemide 20 Mg/2 Ml Vial) 20 mg IVPUSH ONETIME ONE Stop: 11/22/20 09:01 Last Admin: 11/22/20 10:05 Dose: 20 mg Documented by: Sodium Chloride (Normal Saline) 1,000 mls @ 1,000 mls/hr IV ONETIME ONE Stop: 11/21/20 16:26 Last Admin: 11/21/20 15:36 Dose: 1,000 mls/hr Documented by: Ceftriaxone Sodium 2 gm/ (Sodium Chloride) 100 mls @ 200 mls/hr IV ONETIME ONE Stop: 11/21/20 16:12 Last Admin: 11/21/20 16:31 Dose: 200 mls/hr Documented by: Sodium Chloride (Normal Saline) 100 mls @ 75 mls/hr IV ASDIRECTED [facility] Lactated Ringer's (Ringers, Lactated) 1,000 mls @ 1,000 mls/hr IV .BOLUS ONE Stop: 11/21/20 17:54 Last Admin: 11/21/20 17:59 Dose: 1,000 mls/hr Documented by: Lactated Ringer's (Ringers, Lactated) 250 mls @ 250 mls/hr IV .BOLUS ONE Stop: 11/21/20 17:55 Last Admin: 11/21/20 18:40 Dose: 250 mls/hr Documented by: Insulin Human Regular (Insulin Regular, Human 100 Units/Ml 3 Ml Vial) 10 unit IV ONETIME ONE Stop: 11/21/20 17:04 Last Admin: 11/21/20 17:44 Dose: 10 unit Documented by: Iopamidol (Iopamidol 755 Mg/Ml 100 Ml Bottle) 100 ml IVPUSH ONETIME ONE Stop: 11/21/20 15:50 Last Admin: 11/21/20 20:01 Dose: Not Given Documented by: Sodium Chloride (Sodium Chloride 0.9% 10 Ml Syringe) 10 ml FLUSH ONETIME PRN PRN Reason: IV FLUSH Last Admin: 11/21/20 16:31 Dose: 10 ml Documented by: Sodium Polystyrene Sulfonate (Sodium Polystyrene Sulfonate 15 Gm/60 Ml Susp 60 Ml Bot) 45 gm PO NOW ONE Stop: 11/21/20 17:04 Last Admin: 11/21/20 17:51 Dose: 45 gm Documented by: - Exam Physical Findings Comments:: General: Alert (A+Ox1-2), Cooperative HEENT: EOMI, Pupils Equal, Pupils Reactive Neck: Supple, Trachea Midline, Full Range of Motion Lungs: Clear to Auscultation, Normal Respiratory Effort Cardiovascular: Regular Rate, Regular Rhythm, Normal S1, Normal S2 GI/Abdominal Exam: Normal Bowel Sounds, Soft, Non-Tender, No Organomegaly, No Distention (Male) Exam: Other (urostomy bag) Extremities: Normal Inspection, Normal Range of Motion, Non-Tender, No Pedal Edema Skin: Dry, Intact, Cool Neurological: Reflexes Equal Bilateral, Strength Equal Bilateral, Normal Speech, Normal Tone Neuro Extensive - Mental Status: Alert, Normal Mood/Affect Neuro Extensive - Motor, Sensory, Reflexes: CN II-XII Intact, Normal Reflexes Psychiatric: Normal Affect, Normal Mood - Patient Data Lab Results Last 24 hrs: Laboratory Results - last 24 hr 11/21/20 11/21/20 11/21/20 Range/Units 15:15 15:15 15:15 WBC 12.20 H (4.23-9.07) K/mm3 RBC 5.75 (4.63-6.08) M/mm3 Hgb 16.6 (13.7-17.5) gm/dl Hct 51.4 H (40.1-51.0) % MCV 89.4 D (79.0-92.2) fl MCH 28.9 (25.7-32.2) pg MCHC 32.3 (32.2-35.5) g/dl RDW Std Deviation 48.6 H (35.1-43.9) fL Plt Count 228 (163-337) K/mm3 MPV 11.5 (9.4-12.3) fl Neut % (Auto) 82.2 H (34.0-67.9) % Lymph % (Auto) 7.9 L (21.8-53.1) % [place] % (Auto) 8.5 (5.3-12.2) % Eos % (Auto) 1.0 (0.8-7.0) Baso % (Auto) 0.2 (0.1-1.2) % Neut # (Auto) 10.02 H (1.78-5.38) K/mm3 Lymph # (Auto) 0.96 L (1.32-3.57) K/mm3 [place] # (Auto) 1.04 H (0.30-0.82) K/mm3 Eos # (Auto) 0.12 (0.04-0.54) K/mm3 Baso # (Auto) 0.03 (0.01-0.08) K/mm3 Manual Slide Review Abnormal smear PT 10.8 (9.7-12.0) SECONDS INR 1.01 APTT 26.4 (21.7-31.4) SECONDS Sodium 137 (136-145) mEq/L Potassium 6.0 H (3.5-5.1) mEq/L Chloride 105 (98-107) mEq/L Carbon Dioxide 17 L (21-32) mEq/L Anion Gap 21.0 H (5-15) BUN 73 H D (7-18) mg/dL Creatinine 1.8 H (0.7-1.3) mg/dL Est Cr Clr Drug Dosing TNP Estimated GFR (MDRD) 37 (>60) mL/min BUN/Creatinine Ratio 40.6 H (14-18) Glucose 188 H (83-115) mg/dL POC Glucose (83-110) mg/dL Lactic Acid (0.4-2.0) mmol/L Calcium 9.0 (8.5-10.1) mg/dL Magnesium 2.5 H (1.8-2.4) mg/dl Total Bilirubin 0.4 (0.2-1.0) mg/dL AST 18 (15-37) U/L ALT 26 (16-63) U/L Alkaline Phosphatase 109 (46-116) U/L Ammonia (11-32) umol/L Troponin I < 0.017 (0.00-0.056) ng/mL C-Reactive Protein 0.2 (<1.0) mg/dL Total Protein 7.2 (6.4-8.2) g/dl Albumin 4.0 (3.4-5.0) g/dl Globulin 3.2 gm/dL Albumin/Globulin Ratio 1.3 (1-2) Urine Color (Yellow) Urine Appearance (Clear) Urine pH (5.0-8.0) Ur Specific [place] (1.005-1.030) Urine Protein (Negative) Urine Glucose (UA) (Negative) Urine Ketones (Negative) Urine Occult Blood (Negative) Urine Nitrite (Negative) Urine Bilirubin (Negative) Urine Urobilinogen (0.2-1.0) Ur Leukocyte Esterase (Negative) Urine RBC (0-5) /hpf Urine WBC (0-5) /hpf Ur Squamous Epith Cells (0-5) /hpf Urine Bacteria (FEW) /hpf Urine Mucus (FEW) /hpf SARS-CoV-2 RNA ([facility]) (NEGATIVE) 11/21/20 11/21/20 11/21/20 Range/Units 15:15 15:27 15:30 WBC (4.23-9.07) K/mm3 RBC (4.63-6.08) M/mm3 Hgb (13.7-17.5) gm/dl Hct (40.1-51.0) % MCV (79.0-92.2) fl MCH (25.7-32.2) pg MCHC (32.2-35.5) g/dl RDW Std Deviation (35.1-43.9) fL Plt Count (163-337) K/mm3 MPV (9.4-12.3) fl Neut % (Auto) (34.0-67.9) % Lymph % (Auto) (21.8-53.1) % [place] % (Auto) (5.3-12.2) % Eos % (Auto) (0.8-7.0) Baso % (Auto) (0.1-1.2) % Neut # (Auto) (1.78-5.38) K/mm3 Lymph # (Auto) (1.32-3.57) K/mm3 [place] # (Auto) (0.30-0.82) K/mm3 Eos # (Auto) (0.04-0.54) K/mm3 Baso # (Auto) (0.01-0.08) K/mm3 Manual Slide Review PT (9.7-12.0) SECONDS INR APTT (21.7-31.4) SECONDS Sodium (136-145) mEq/L Potassium (3.5-5.1) mEq/L Chloride (98-107) mEq/L Carbon Dioxide (21-32) mEq/L Anion Gap (5-15) BUN (7-18) mg/dL Creatinine (0.7-1.3) mg/dL Est Cr Clr Drug Dosing Estimated GFR (MDRD) (>60) mL/min BUN/Creatinine Ratio (14-18) Glucose (83-115) mg/dL POC Glucose 180 H (83-110) mg/dL Lactic Acid 1.6 (0.4-2.0) mmol/L Calcium (8.5-10.1) mg/dL Magnesium (1.8-2.4) mg/dl Total Bilirubin (0.2-1.0) mg/dL AST (15-37) U/L ALT (16-63) U/L Alkaline Phosphatase (46-116) U/L Ammonia (11-32) umol/L Troponin I (0.00-0.056) ng/mL C-Reactive Protein (<1.0) mg/dL Total Protein (6.4-8.2) g/dl Albumin (3.4-5.0) g/dl Globulin gm/dL Albumin/Globulin Ratio (1-2) Urine Color (Yellow) Urine Appearance (Clear) Urine pH (5.0-8.0) Ur Specific [place] (1.005-1.030) Urine Protein (Negative) Urine Glucose (UA) (Negative) Urine Ketones (Negative) Urine Occult Blood (Negative) Urine Nitrite (Negative) Urine Bilirubin (Negative) Urine Urobilinogen (0.2-1.0) Ur Leukocyte Esterase (Negative) Urine RBC (0-5) /hpf Urine WBC (0-5) /hpf Ur Squamous Epith Cells (0-5) /hpf Urine Bacteria (FEW) /hpf Urine Mucus (FEW) /hpf SARS-CoV-2 RNA ([facility]) Negative (NEGATIVE) 11/21/20 11/21/20 11/21/20 Range/Units 15:52 16:14 19:05 WBC (4.23-9.07) K/mm3 RBC (4.63-6.08) M/mm3 Hgb (13.7-17.5) gm/dl Hct (40.1-51.0) % MCV (79.0-92.2) fl MCH (25.7-32.2) pg MCHC (32.2-35.5) g/dl RDW Std Deviation (35.1-43.9) fL Plt Count (163-337) K/mm3 MPV (9.4-12.3) fl Neut % (Auto) (34.0-67.9) % Lymph % (Auto) (21.8-53.1) % [place] % (Auto) (5.3-12.2) % Eos % (Auto) (0.8-7.0) Baso % (Auto) (0.1-1.2) % Neut # (Auto) (1.78-5.38) K/mm3 Lymph # (Auto) (1.32-3.57) K/mm3 [place] # (Auto) (0.30-0.82) K/mm3 Eos # (Auto) (0.04-0.54) K/mm3 Baso # (Auto) (0.01-0.08) K/mm3 Manual Slide Review PT 11.1 (9.7-12.0) SECONDS INR 1.04 APTT (21.7-31.4) SECONDS Sodium (136-145) mEq/L Potassium (3.5-5.1) mEq/L Chloride (98-107) mEq/L Carbon Dioxide (21-32) mEq/L Anion Gap (5-15) BUN (7-18) mg/dL Creatinine (0.7-1.3) mg/dL Est Cr Clr Drug Dosing Estimated GFR (MDRD) (>60) mL/min BUN/Creatinine Ratio (14-18) Glucose (83-115) mg/dL POC Glucose (83-110) mg/dL Lactic Acid (0.4-2.0) mmol/L Calcium (8.5-10.1) mg/dL Magnesium (1.8-2.4) mg/dl Total Bilirubin (0.2-1.0) mg/dL AST (15-37) U/L ALT (16-63) U/L Alkaline Phosphatase (46-116) U/L Ammonia 14 (11-32) umol/L Troponin I (0.00-0.056) ng/mL C-Reactive Protein (<1.0) mg/dL Total Protein (6.4-8.2) g/dl Albumin (3.4-5.0) g/dl Globulin gm/dL Albumin/Globulin Ratio (1-2) Urine Color Yellow (Yellow) Urine Appearance Cloudy H (Clear) Urine pH 7.0 (5.0-8.0) Ur Specific [place] 1.020 (1.005-1.030) Urine Protein 1+ H (Negative) Urine Glucose (UA) Trace H (Negative) Urine Ketones Negative (Negative) Urine Occult Blood 1+ H (Negative) Urine Nitrite Negative (Negative) Urine Bilirubin Negative (Negative) Urine Urobilinogen 0.2 (0.2-1.0) Ur Leukocyte Esterase 1+ H (Negative) Urine RBC 5-10 H (0-5) /hpf Urine WBC 20-30 H (0-5) /hpf Ur Squamous Epith Cells 0-5 (0-5) /hpf Urine Bacteria Many H (FEW) /hpf Urine Mucus Few (FEW) /hpf SARS-CoV-2 RNA ([facility]) (NEGATIVE) 11/21/20 11/21/20 11/21/20 Range/Units 19:05 19:05 19:29 WBC (4.23-9.07) K/mm3 RBC (4.63-6.08) M/mm3 Hgb (13.7-17.5) gm/dl Hct (40.1-51.0) % MCV (79.0-92.2) fl MCH (25.7-32.2) pg MCHC (32.2-35.5) g/dl RDW Std Deviation (35.1-43.9) fL Plt Count (163-337) K/mm3 MPV (9.4-12.3) fl Neut % (Auto) (34.0-67.9) % Lymph % (Auto) (21.8-53.1) % [place] % (Auto) (5.3-12.2) % Eos % (Auto) (0.8-7.0) Baso % (Auto) (0.1-1.2) % Neut # (Auto) (1.78-5.38) K/mm3 Lymph # (Auto) (1.32-3.57) K/mm3 [place] # (Auto) (0.30-0.82) K/mm3 Eos # (Auto) (0.04-0.54) K/mm3 Baso # (Auto) (0.01-0.08) K/mm3 Manual Slide Review PT (9.7-12.0) SECONDS INR APTT (21.7-31.4) SECONDS Sodium 137 (136-145) mEq/L Potassium 5.7 H (3.5-5.1) mEq/L Chloride 105 (98-107) mEq/L Carbon Dioxide 18 L (21-32) mEq/L Anion Gap 19.7 H (5-15) BUN 69 H (7-18) mg/dL Creatinine 1.7 H (0.7-1.3) mg/dL Est Cr Clr Drug Dosing 31.80 Estimated GFR (MDRD) 39 (>60) mL/min BUN/Creatinine Ratio 40.6 H (14-18) Glucose 334 H (83-115) mg/dL POC Glucose 275 H (83-110) mg/dL Lactic Acid (0.4-2.0) mmol/L Calcium 8.6 (8.5-10.1) mg/dL Magnesium (1.8-2.4) mg/dl Total Bilirubin (0.2-1.0) mg/dL AST (15-37) U/L ALT (16-63) U/L Alkaline Phosphatase (46-116) U/L Ammonia (11-32) umol/L Troponin I < 0.017 (0.00-0.056) ng/mL C-Reactive Protein (<1.0) mg/dL Total Protein (6.4-8.2) g/dl Albumin (3.4-5.0) g/dl Globulin gm/dL Albumin/Globulin Ratio (1-2) Urine Color (Yellow) Urine Appearance (Clear) Urine pH (5.0-8.0) Ur Specific [place] (1.005-1.030) Urine Protein (Negative) Urine Glucose (UA) (Negative) Urine Ketones (Negative) Urine Occult Blood (Negative) Urine Nitrite (Negative) Urine Bilirubin (Negative) Urine Urobilinogen (0.2-1.0) Ur Leukocyte Esterase (Negative) Urine RBC (0-5) /hpf Urine WBC (0-5) /hpf Ur Squamous Epith Cells (0-5) /hpf Urine Bacteria (FEW) /hpf Urine Mucus (FEW) /hpf SARS-CoV-2 RNA (TAYLOR) (NEGATIVE) 11/21/20 11/22/20 11/22/20 Range/Units 21:08 01:01 05:34 WBC 9.65 H (4.23-9.07) K/mm3 RBC 4.91 (4.63-6.08) M/mm3 Hgb 14.9 D (13.7-17.5) gm/dl Hct 45.0 (40.1-51.0) % MCV 91.6 (79.0-92.2) fl MCH 30.3 (25.7-32.2) pg MCHC 33.1 (32.2-35.5) g/dl RDW Std Deviation 50.0 H (35.1-43.9) fL Plt Count 151 L D (163-337) K/mm3 MPV 11.4 (9.4-12.3) fl Neut % (Auto) 91.2 H (34.0-67.9) % Lymph % (Auto) 2.3 L (21.8-53.1) % [place] % (Auto) 6.1 (5.3-12.2) % Eos % (Auto) 0.1 L (0.8-7.0) Baso % (Auto) 0.1 (0.1-1.2) % Neut # (Auto) 8.80 H (1.78-5.38) K/mm3 Lymph # (Auto) 0.22 L (1.32-3.57) K/mm3 [place] # (Auto) 0.59 (0.30-0.82) K/mm3 Eos # (Auto) 0.01 L (0.04-0.54) K/mm3 Baso # (Auto) 0.01 (0.01-0.08) K/mm3 Manual Slide Review Abnormal smear PT (9.7-12.0) SECONDS INR APTT (21.7-31.4) SECONDS Sodium (136-145) mEq/L Potassium (3.5-5.1) mEq/L Chloride (98-107) mEq/L Carbon Dioxide (21-32) mEq/L Anion Gap (5-15) BUN (7-18) mg/dL Creatinine (0.7-1.3) mg/dL Est Cr Clr Drug Dosing Estimated GFR (MDRD) (>60) mL/min BUN/Creatinine Ratio (14-18) Glucose (83-115) mg/dL POC Glucose 221 H (83-110) mg/dL Lactic Acid (0.4-2.0) mmol/L Calcium (8.5-10.1) mg/dL Magnesium (1.8-2.4) mg/dl Total Bilirubin (0.2-1.0) mg/dL AST (15-37) U/L ALT (16-63) U/L Alkaline Phosphatase (46-116) U/L Ammonia (11-32) umol/L Troponin I < 0.017 (0.00-0.056) ng/mL C-Reactive Protein (<1.0) mg/dL Total Protein (6.4-8.2) g/dl Albumin (3.4-5.0) g/dl Globulin gm/dL Albumin/Globulin Ratio (1-2) Urine Color (Yellow) Urine Appearance (Clear) Urine pH (5.0-8.0) Ur Specific [place] (1.005-1.030) Urine Protein (Negative) Urine Glucose (UA) (Negative) Urine Ketones (Negative) Urine Occult Blood (Negative) Urine Nitrite (Negative) Urine Bilirubin (Negative) Urine Urobilinogen (0.2-1.0) Ur Leukocyte Esterase (Negative) Urine RBC (0-5) /hpf Urine WBC (0-5) /hpf Ur Squamous Epith Cells (0-5) /hpf Urine Bacteria (FEW) /hpf Urine Mucus (FEW) /hpf SARS-CoV-2 RNA ([facility]OR) (NEGATIVE) 11/22/20 11/22/20 11/22/20 Range/Units 05:34 06:10 12:35 WBC (4.23-9.07) K/mm3 RBC (4.63-6.08) M/mm3 Hgb (13.7-17.5) gm/dl Hct (40.1-51.0) % MCV (79.0-92.2) fl MCH (25.7-32.2) pg MCHC (32.2-35.5) g/dl RDW Std Deviation (35.1-43.9) fL Plt Count (163-337) K/mm3 MPV (9.4-12.3) fl Neut % (Auto) (34.0-67.9) % Lymph % (Auto) (21.8-53.1) % [place] % (Auto) (5.3-12.2) % Eos % (Auto) (0.8-7.0) Baso % (Auto) (0.1-1.2) % Neut # (Auto) (1.78-5.38) K/mm3 Lymph # (Auto) (1.32-3.57) K/mm3 [place] # (Auto) (0.30-0.82) K/mm3 Eos # (Auto) (0.04-0.54) K/mm3 Baso # (Auto) (0.01-0.08) K/mm3 Manual Slide Review PT (9.7-12.0) SECONDS INR APTT (21.7-31.4) SECONDS Sodium 141 (136-145) mEq/L Potassium 5.4 H (3.5-5.1) mEq/L Chloride 110 H (98-107) mEq/L Carbon Dioxide 20 L (21-32) mEq/L Anion Gap 16.4 H (5-15) BUN 60 H (7-18) mg/dL Creatinine 1.6 H (0.7-1.3) mg/dL Est Cr Clr Drug Dosing 33.78 Estimated GFR (MDRD) 42 (>60) mL/min BUN/Creatinine Ratio 37.5 H (14-18) Glucose 182 H (83-115) mg/dL POC Glucose 166 H 172 H (83-110) mg/dL Lactic Acid (0.4-2.0) mmol/L Calcium 8.8 (8.5-10.1) mg/dL Magnesium (1.8-2.4) mg/dl Total Bilirubin 0.3 (0.2-1.0) mg/dL AST 14 L (15-37) U/L ALT 21 (16-63) U/L Alkaline Phosphatase 88 (46-116) U/L Ammonia (11-32) umol/L Troponin I (0.00-0.056) ng/mL C-Reactive Protein (<1.0) mg/dL Total Protein 6.5 (6.4-8.2) g/dl Albumin 3.4 (3.4-5.0) g/dl Globulin 3.1 gm/dL Albumin/Globulin Ratio 1.1 (1-2) Urine Color (Yellow) Urine Appearance (Clear) Urine pH (5.0-8.0) Ur Specific [place] (1.005-1.030) Urine Protein (Negative) Urine Glucose (UA) (Negative) Urine Ketones (Negative) Urine Occult Blood (Negative) Urine Nitrite (Negative) Urine Bilirubin (Negative) Urine Urobilinogen (0.2-1.0) Ur Leukocyte Esterase (Negative) Urine RBC (0-5) /hpf Urine WBC (0-5) /hpf Ur Squamous Epith Cells (0-5) /hpf Urine Bacteria (FEW) /hpf Urine Mucus (FEW) /hpf SARS-CoV-2 RNA ([place]) (NEGATIVE) Result Diagrams: 11/22/20 05:34 11/22/20 14:05 Huey Results Last 24 hrs: Microbiology 11/21/20 15:52 Urine Culture - Preliminary Urine, Clean Catch Gram Negative Rods Sepsis Event Note - Evaluation Sepsis Screening Result: No Definite Risk - Focused Exam Vital Signs: Vital Signs Temp Pulse Resp BP Pulse Ox Pulse Ox Pulse Ox 11/22/20 12:00 37.2 C 118/76 97 97 11/22/20 11:15 98 98 11/22/20 10:20 95 95 11/22/20 08:17 97 11/22/20 08:00 36.2 C 14 97/51 L 95 11/22/20 06:32 95 11/22/20 04:00 36.3 C 83 18 122/56 L 96 - Problem List Review Problem List Initiated/Reviewed/Updated: Yes - My Orders Last 24 Hours: My Active Orders 11/21/20 18:45 Bedrest Bedside Commode [RC] ASDIRECTED Height and Weight [RC] 04 Oxygen Therapy [RC] PRN VTE/DVT Education [RC] Vital Signs [RC] Q4HR Acetaminophen [TylenoL] 650 mg PO Q6H PRN Heparin Sodium 5,000 units SUBCUT Q8H Lactated Ringers [Ringers, Lactated] 1,000 ml IV ASDIRECTED Morphine 2 mg IVPUSH Q4H PRN Promethazine [Phenergan] 12.5 mg Sodium Chloride 0.9% [Normal Saline] 50 ml IV Q6H 11/21/20 18:46 Cardiac Monitoring [RC] CONTINUOUS Intake and Output [RC] Q2HR Pulse Oximetry [RC] CONTINUOUS 11/21/20 18:50 OT Evaluation and Treatment [CONS] Routine PT Evaluation and Treatment [CONS] Routine 11/21/20 18:58 Resuscitation Status Routine 11/21/20 19:00 hydrALAZINE [Apresoline] 10 mg IVPUSH Q4H PRN 11/21/20 19:01 traMADol [Ultram] 50 mg PO Q6H PRN 11/21/20 19:17 RT Aerosol Therapy [RC] ASDIRECTED Albuterol/Ipratropium [DuoNeb 3.0-0.5 MG/3 ML] 3 ml NEB Q4H PRN 11/21/20 21:00 Memantine [Namenda] 10 mg PO BID Simvastatin [Zocor] 20 mg PO BEDTIME 11/21/20 22:00 Insulin Lispro [HumaLOG] See Protocol SUBCUT QIDACANDBED 11/22/20 09:00 Sertraline [Zoloft] 200 mg PO DAILY Sodium Polystyrene Sulfonate [Kayexalate] 15 gm PO Q6H 11/22/20 Lunch [employer] Diet [DIET] 11/22/20 14:05 BASIC METABOLIC PANEL,BMP [CHEM] Routine 11/22/20 16:30 cefTRIAXone [Rocephin] 1 gm Sodium Chloride 0.9% [Normal Saline] 100 ml IV Q24H 11/23/20 05:00 CBC WITH AUTO DIFF [HEME] DAILY COMPREHENSIVE METABOLIC PN,CMP [CHEM] DAILY 11/24/20 05:00 CBC WITH AUTO DIFF [HEME] DAILY COMPREHENSIVE METABOLIC PN,CMP [CHEM] DAILY 11/25/20 05:00 CBC WITH AUTO DIFF [HEME] DAILY COMPREHENSIVE METABOLIC PN,CMP [CHEM] DAILY 11/26/20 05:00 CBC WITH AUTO DIFF [HEME] DAILY COMPREHENSIVE METABOLIC PN,CMP [CHEM] DAILY 11/27/20 05:00 CBC WITH AUTO DIFF [HEME] DAILY COMPREHENSIVE METABOLIC PN,CMP [CHEM] DAILY - Plan Plan:: Patient is a 79-year-old male with a history of hypertension, bladder cancer, s/p surgery with urostomy bag, and diabetes type 2 who was brought to the ER due to generalized weakness and confusion. Assessment and plan: 1. AMS More alert Etiology unknown. Most likely due to sepsis/infection. Pt also has dementia. He is on memantine 10mg bid. CT of head - no acute change Ammonia 14 Temazepam 15mg bedtime and trazodone 100mg are on hold Monitor 2. Severe sepsis 2nd to UTI - improved/resolved 3. Hypotension, was responsive to IVF resuscitation - improved/resolved Initial BP in the ER was 95/64. After 1L, SBP went up to >100. LA 1.6, CRP 0.2 Blood culture no growth so far IV fluid Antibiotics 4. Acute hypoxic respiratory failure, Etiology unknown. CT chest showed cavitary lesion and calcified granuloma Troponin less than 0.017 x 3 in the ER, desaturation, needed 2-3L Pulse ox Oxygen therapy, maintain oxygen saturation greater than 92% 5. Hypothermia, it initially was 33.5c in the ER. It was up to 36.0 when I saw him in the ER. Monitor temperature and heart rate 6. UTI, 7. History of bladder cancer Urine compatible with UTI use of urostomy bag, bladder cancer, status post surgery Urine culture -gram-negative rods. Sensitivity pending Continue ceftriaxone 1 g daily 8. Hyperkalemia, 3.9 Continue to monitor 9. LUCIUS or LUCIUS on CKD Creatinine 1.6 today, which was 1.8 yesterday Unknown type and chronicity Avoid nephrotoxic meds Repeat the renal function in the morning 10. Lung cavitary lesion. CT chest showed 1/4cm cavitary leison within the right lower lung. It could represent atypical infecton vs small neoplasm. CT angio [facility] -thick walled cavitary focus measuring up to 1.4 cm in superior segment right lower lobe. Follow with PCP and dramatic coach 11. Abdominal pain Improved/resolved CT abd - no acute change Antibiotics 12. DM type 2 insulin aspart 45units daily is on hold Metformin 50mg bid and empagliflozin 10mg daily are on hold Insulin tier 2 Adjust insulin based on BG levels 13. HTN Lisinopril 10mg daily is on hold Hydralazine as needed 14. DVT prophylaxis: Heparin
[2020-11-22] MEDS: cefTRIAXone 1 GM in Sodium Chloride 0.9% 100 ML IV SCH (16:38)
[2020-11-22] MEDS: Simvastatin 20 MG Tab PO SCH (21:22)
[2020-11-23] MEDS: Heparin Sodium 5,000 Units/ML Vial SUBCUT SCH ×3 (03:40→18:05)
[2020-11-23] MEDS: Lactated Ringers 1,000 ML IV SCH (03:48)
[2020-11-23] MEDS: Insulin Lispro 100 UNIT/ML 10 ML Vial SUBCUT SCH ×4 (07:19→21:24)
[2020-11-23] MEDS: Memantine 10 MG Tab PO SCH ×2 (09:12→21:24)
[2020-11-23] MEDS: Sertraline 50 MG Tab PO SCH (09:12)
--- NOTE | 2020-11-23 10:17 | PCM.PN ---
- General Info Date of Service: 11/23/20 Admission Dx/Problem (Free Text): Admission Diagnosis/Problem Admission Diagnosis/Problem Sepsis Subjective Update: Patient is a 79-year-old male with a history of hypertension, bladder cancer, s/p surgery with urostomy bag, and diabetes type 2 who was brought to the ER due to generalized weakness and confusion. Today patient feels better. He is more alert. Denies headache, dizziness, nausea, vomiting, fever, or chills. Temperature normalized. Blood pressure is improving He is on room air with good oxygen saturation WBC trending down to 5.54 from 12.20 yesterday Potassium of 4.3, creatinine 1.0 Urine culture showed gram negative rods. Sensitivity pending Functional Status: Reports: Pain Controlled - Review of Systems General: Reports: No Symptoms HEENT: Reports: No Symptoms Pulmonary: Reports: No Symptoms Cardiovascular: Reports: No Symptoms Gastrointestinal: Reports: No Symptoms Musculoskeletal: Reports: No Symptoms Neurological: Reports: No Symptoms Psychiatric: Reports: No Symptoms - Patient Data Vitals - Most Recent: Last Vital Signs Temp 97.6 F 11/23/20 09:11 Pulse 80 11/23/20 09:11 Resp 16 11/23/20 09:11 BP 157/76 H 11/23/20 09:11 Pulse Ox 94 L 11/23/20 09:11 Weight - Most Recent: 166 lb 11.2 oz I&O - Last 24 Hours: Intake & Output 11/22/20 11/23/20 11/23/20 22:59 06:59 14:59 Intake Total 1555 706 Output Total 650 300 Balance 905 406 Lab Results Last 24 Hours: Laboratory Results - last 24 hr 11/22/20 11/22/20 11/22/20 Range/Units 12:35 14:05 18:11 WBC (4.23-9.07) K/mm3 RBC (4.63-6.08) M/mm3 Hgb (13.7-17.5) gm/dl Hct (40.1-51.0) % MCV (79.0-92.2) fl MCH (25.7-32.2) pg MCHC (32.2-35.5) g/dl RDW Std Deviation (35.1-43.9) fL Plt Count (163-337) K/mm3 MPV (9.4-12.3) fl Neut % (Auto) (34.0-67.9) % Lymph % (Auto) (21.8-53.1) % [place] % (Auto) (5.3-12.2) % Eos % (Auto) (0.8-7.0) Baso % (Auto) (0.1-1.2) % Neut # (Auto) (1.78-5.38) K/mm3 Lymph # (Auto) (1.32-3.57) K/mm3 [place] # (Auto) (0.30-0.82) K/mm3 Eos # (Auto) (0.04-0.54) K/mm3 Baso # (Auto) (0.01-0.08) K/mm3 Sodium 143 (136-145) mEq/L Potassium 3.9 D (3.5-5.1) mEq/L Chloride 110 H (98-107) mEq/L Carbon Dioxide 22 (21-32) mEq/L Anion Gap 14.9 (5-15) BUN 49 H (7-18) mg/dL Creatinine 1.3 (0.7-1.3) mg/dL Est Cr Clr Drug Dosing 41.58 mL/min Estimated GFR (MDRD) 53 (>60) mL/min BUN/Creatinine Ratio 37.7 H (14-18) Glucose 123 H (83-115) mg/dL POC Glucose 172 H 167 H (83-110) mg/dL Calcium 8.8 (8.5-10.1) mg/dL Total Bilirubin (0.2-1.0) mg/dL AST (15-37) U/L ALT (16-63) U/L Alkaline Phosphatase (46-116) U/L Total Protein (6.4-8.2) g/dl Albumin (3.4-5.0) g/dl Globulin gm/dL Albumin/Globulin Ratio (1-2) 11/22/20 11/23/20 11/23/20 Range/Units 21:25 06:25 06:25 WBC 5.54 (4.23-9.07) K/mm3 RBC 4.34 L (4.63-6.08) M/mm3 Hgb 13.0 L D (13.7-17.5) gm/dl Hct 39.5 L (40.1-51.0) % MCV 91.0 (79.0-92.2) fl MCH 30.0 (25.7-32.2) pg MCHC 32.9 (32.2-35.5) g/dl RDW Std Deviation 50.4 H (35.1-43.9) fL Plt Count 131 L (163-337) K/mm3 MPV 11.1 (9.4-12.3) fl Neut % (Auto) 74.3 H (34.0-67.9) % Lymph % (Auto) 11.9 L (21.8-53.1) % [place] % (Auto) 12.5 H (5.3-12.2) % Eos % (Auto) 0.9 (0.8-7.0) Baso % (Auto) 0.2 (0.1-1.2) % Neut # (Auto) 4.12 (1.78-5.38) K/mm3 Lymph # (Auto) 0.66 L (1.32-3.57) K/mm3 [place] # (Auto) 0.69 (0.30-0.82) K/mm3 Eos # (Auto) 0.05 (0.04-0.54) K/mm3 Baso # (Auto) 0.01 (0.01-0.08) K/mm3 Sodium 143 (136-145) mEq/L Potassium 4.3 (3.5-5.1) mEq/L Chloride 113 H (98-107) mEq/L Carbon Dioxide 21 (21-32) mEq/L Anion Gap 13.3 (5-15) BUN 35 H (7-18) mg/dL Creatinine 1.0 (0.7-1.3) mg/dL Est Cr Clr Drug Dosing 54.05 mL/min Estimated GFR (MDRD) > 60 (>60) mL/min BUN/Creatinine Ratio 35.0 H (14-18) Glucose 141 H (83-115) mg/dL POC Glucose 191 H (83-110) mg/dL Calcium 8.5 (8.5-10.1) mg/dL Total Bilirubin 0.3 (0.2-1.0) mg/dL AST 16 (15-37) U/L ALT 21 (16-63) U/L Alkaline Phosphatase 75 (46-116) U/L Total Protein 5.8 L (6.4-8.2) g/dl Albumin 3.1 L (3.4-5.0) g/dl Globulin 2.7 gm/dL Albumin/Globulin Ratio 1.2 (1-2) 11/23/20 Range/Units 06:45 WBC (4.23-9.07) K/mm3 RBC (4.63-6.08) M/mm3 Hgb (13.7-17.5) gm/dl Hct (40.1-51.0) % MCV (79.0-92.2) fl MCH (25.7-32.2) pg MCHC (32.2-35.5) g/dl RDW Std Deviation (35.1-43.9) fL Plt Count (163-337) K/mm3 MPV (9.4-12.3) fl Neut % (Auto) (34.0-67.9) % Lymph % (Auto) (21.8-53.1) % [place] % (Auto) (5.3-12.2) % Eos % (Auto) (0.8-7.0) Baso % (Auto) (0.1-1.2) % Neut # (Auto) (1.78-5.38) K/mm3 Lymph # (Auto) (1.32-3.57) K/mm3 [place] # (Auto) (0.30-0.82) K/mm3 Eos # (Auto) (0.04-0.54) K/mm3 Baso # (Auto) (0.01-0.08) K/mm3 Sodium (136-145) mEq/L Potassium (3.5-5.1) mEq/L Chloride (98-107) mEq/L Carbon Dioxide (21-32) mEq/L Anion Gap (5-15) BUN (7-18) mg/dL Creatinine (0.7-1.3) mg/dL Est Cr Clr Drug Dosing mL/min Estimated GFR (MDRD) (>60) mL/min BUN/Creatinine Ratio (14-18) Glucose (83-115) mg/dL POC Glucose 147 H (83-110) mg/dL Calcium (8.5-10.1) mg/dL Total Bilirubin (0.2-1.0) mg/dL AST (15-37) U/L ALT (16-63) U/L Alkaline Phosphatase (46-116) U/L Total Protein (6.4-8.2) g/dl Albumin (3.4-5.0) g/dl Globulin gm/dL Albumin/Globulin Ratio (1-2) Huey Results Last 24 Hours: Microbiology 11/21/20 16:14 Aerobic Blood Culture - Preliminary Blood - Venous - Lab Draw NO GROWTH AFTER 1 DAY Anaerobic Blood Culture - Preliminary NO GROWTH AFTER 1 DAY 11/21/20 15:47 Aerobic Blood Culture - Preliminary Blood - Venous NO GROWTH AFTER 1 DAY Anaerobic Blood Culture - Preliminary NO GROWTH AFTER 1 DAY 11/21/20 15:52 Urine Culture - Preliminary Urine, Clean Catch Gram Negative Rods Med Orders - Current: Current Medications Acetaminophen (Acetaminophen 325 Mg Tab) 650 mg PO Q6H PRN PRN Reason: Pain (Mild 1-3)/fever Albuterol/Ipratropium (Albuterol/Ipratropium 3.0-0.5 Mg/3 Ml Neb Soln) 3 ml NEB Q4H PRN PRN Reason: Shortness Of Breath/wheezing Heparin Sodium (Porcine) (Heparin Sodium 5,000 Units/Ml Vial) 5,000 units SUBCUT Q8H [facility] Last Admin: 11/23/20 03:40 Dose: 5,000 units Documented by: Hydralazine HCl (Hydralazine 20 Mg/Ml Sdv) 10 mg IVPUSH Q4H PRN PRN Reason: Hypertension Lactated Ringer's (Ringers, Lactated) 1,000 mls @ 65 mls/hr IV ASDIRECTED [facility] Last Admin: 11/23/20 03:48 Dose: 65 mls/hr Documented by: Promethazine HCl 12.5 mg/ (Sodium Chloride) 50.5 mls @ 100 mls/hr IV Q6H PRN PRN Reason: Nausea/Vomiting Ceftriaxone Sodium 1 gm/ (Sodium Chloride) 100 mls @ 200 mls/hr IV Q24H [facility] Last Admin: 11/22/20 16:38 Dose: 200 mls/hr Documented by: Insulin Human Lispro (Insulin Lispro 100 Unit/Ml) 0 unit SUBCUT QIDACANDBED [facility]; Protocol Last Admin: 11/23/20 07:19 Dose: Not Given Documented by: Memantine (Memantine 10 Mg Tab) 10 mg PO BID [facility] Last Admin: 11/23/20 09:12 Dose: 10 mg Documented by: Sertraline HCl (Sertraline 50 Mg Tab) 200 mg PO DAILY [facility] Last Admin: 11/23/20 09:12 Dose: 200 mg Documented by: Simvastatin (Simvastatin 20 Mg Tab) 20 mg PO BEDTIME [facility] Last Admin: 11/22/20 21:22 Dose: 20 mg Documented by: Tramadol HCl (Tramadol 50 Mg Tab) 50 mg PO Q6H PRN PRN Reason: Pain (moderate 4-6) Discontinued Medications Albuterol (Albuterol 0.083% 2.5 Mg/3 Ml Neb Soln) 2.5 mg NEB ONETIME ONE Stop: 11/21/20 16:59 Last Admin: 11/21/20 17:52 Dose: 2.5 mg Documented by: Calcium Gluconate (Calcium Gluconate 10% 1 Gm/10 Ml Sdv) 1 gm IVPUSH ONETIME ONE Stop: 11/21/20 17:04 Last Admin: 11/21/20 17:49 Dose: 1 gm Documented by: Dextrose/Water (50% Dextrose In Water 50 Ml Syringe) 50 ml IVPUSH ONETIME ONE Stop: 11/21/20 17:00 Last Admin: 11/21/20 17:59 Dose: 50 ml Documented by: Furosemide (Furosemide 20 Mg/2 Ml Vial) 20 mg IVPUSH ONETIME ONE Stop: 11/22/20 09:01 Last Admin: 11/22/20 10:05 Dose: 20 mg Documented by: Sodium Chloride (Normal Saline) 1,000 mls @ 1,000 mls/hr IV ONETIME ONE Stop: 11/21/20 16:26 Last Admin: 11/21/20 15:36 Dose: 1,000 mls/hr Documented by: Ceftriaxone Sodium 2 gm/ (Sodium Chloride) 100 mls @ 200 mls/hr IV ONETIME ONE Stop: 11/21/20 16:12 Last Admin: 11/21/20 16:31 Dose: 200 mls/hr Documented by: Sodium Chloride (Normal Saline) 100 mls @ 75 mls/hr IV ASDIRECTED [facility] Lactated Ringer's (Ringers, Lactated) 1,000 mls @ 1,000 mls/hr IV .BOLUS ONE Stop: 11/21/20 17:54 Last Admin: 11/21/20 17:59 Dose: 1,000 mls/hr Documented by: Lactated Ringer's (Ringers, Lactated) 250 mls @ 250 mls/hr IV .BOLUS ONE Stop: 11/21/20 17:55 Last Admin: 11/21/20 18:40 Dose: 250 mls/hr Documented by: Insulin Human Regular (Insulin Regular, Human 100 Units/Ml 3 Ml Vial) 10 unit IV ONETIME ONE Stop: 11/21/20 17:04 Last Admin: 11/21/20 17:44 Dose: 10 unit Documented by: Iopamidol (Iopamidol 755 Mg/Ml 100 Ml Bottle) 100 ml IVPUSH ONETIME ONE Stop: 11/21/20 15:50 Last Admin: 11/21/20 20:01 Dose: Not Given Documented by: Morphine Sulfate (Morphine 2 Mg/Ml Syringe) 2 mg IVPUSH Q4H PRN PRN Reason: Pain (severe 7-10) Stop: 11/22/20 18:49 Sodium Chloride (Sodium Chloride 0.9% 10 Ml Syringe) 10 ml FLUSH ONETIME PRN PRN Reason: IV FLUSH Last Admin: 11/21/20 16:31 Dose: 10 ml Documented by: Sodium Polystyrene Sulfonate (Sodium Polystyrene Sulfonate 15 Gm/60 Ml Susp 60 Ml Bot) 45 gm PO NOW ONE Stop: 11/21/20 17:04 Last Admin: 11/21/20 17:51 Dose: 45 gm Documented by: Sodium Polystyrene Sulfonate (Sodium Polystyrene Sulfonate 15 Gm/60 Ml Susp 60 Ml Bot) 15 gm PO Q6H [facility] Stop: 11/22/20 15:01 Last Admin: 11/22/20 14:45 Dose: Not Given Documented by: - Exam Quality Assessment: No: Supplemental Oxygen General: Alert, Oriented HEENT: Pupils Equal, Mucous Membr. Moist/[place] Neck: Supple Lungs: Clear to Auscultation, Normal Respiratory Effort Cardiovascular: Regular Rate, Regular Rhythm GI/Abdominal Exam: Normal Bowel Sounds, Soft, Non-Tender, No Organomegaly, No Distention, No Abnormal Bruit Extremities: Normal Inspection, Normal Range of Motion, Non-Tender, No Pedal Edema, Normal Capillary Refill Skin: Warm, Dry, Intact Psy/Mental Status: Alert, Normal Affect, Normal Mood - Patient Data Lab Results Last 24 hrs: Laboratory Results - last 24 hr 11/22/20 11/22/20 11/22/20 Range/Units 12:35 14:05 18:11 WBC (4.23-9.07) K/mm3 RBC (4.63-6.08) M/mm3 Hgb (13.7-17.5) gm/dl Hct (40.1-51.0) % MCV (79.0-92.2) fl MCH (25.7-32.2) pg MCHC (32.2-35.5) g/dl RDW Std Deviation (35.1-43.9) fL Plt Count (163-337) K/mm3 MPV (9.4-12.3) fl Neut % (Auto) (34.0-67.9) % Lymph % (Auto) (21.8-53.1) % [place] % (Auto) (5.3-12.2) % Eos % (Auto) (0.8-7.0) Baso % (Auto) (0.1-1.2) % Neut # (Auto) (1.78-5.38) K/mm3 Lymph # (Auto) (1.32-3.57) K/mm3 [place] # (Auto) (0.30-0.82) K/mm3 Eos # (Auto) (0.04-0.54) K/mm3 Baso # (Auto) (0.01-0.08) K/mm3 Sodium 143 (136-145) mEq/L Potassium 3.9 D (3.5-5.1) mEq/L Chloride 110 H (98-107) mEq/L Carbon Dioxide 22 (21-32) mEq/L Anion Gap 14.9 (5-15) BUN 49 H (7-18) mg/dL Creatinine 1.3 (0.7-1.3) mg/dL Est Cr Clr Drug Dosing 41.58 mL/min Estimated GFR (MDRD) 53 (>60) mL/min BUN/Creatinine Ratio 37.7 H (14-18) Glucose 123 H (83-115) mg/dL POC Glucose 172 H 167 H (83-110) mg/dL Calcium 8.8 (8.5-10.1) mg/dL Total Bilirubin (0.2-1.0) mg/dL AST (15-37) U/L ALT (16-63) U/L Alkaline Phosphatase (46-116) U/L Total Protein (6.4-8.2) g/dl Albumin (3.4-5.0) g/dl Globulin gm/dL Albumin/Globulin Ratio (1-2) 11/22/20 11/23/20 11/23/20 Range/Units 21:25 06:25 06:25 WBC 5.54 (4.23-9.07) K/mm3 RBC 4.34 L (4.63-6.08) M/mm3 Hgb 13.0 L D (13.7-17.5) gm/dl Hct 39.5 L (40.1-51.0) % MCV 91.0 (79.0-92.2) fl MCH 30.0 (25.7-32.2) pg MCHC 32.9 (32.2-35.5) g/dl RDW Std Deviation 50.4 H (35.1-43.9) fL Plt Count 131 L (163-337) K/mm3 MPV 11.1 (9.4-12.3) fl Neut % (Auto) 74.3 H (34.0-67.9) % Lymph % (Auto) 11.9 L (21.8-53.1) % [place] % (Auto) 12.5 H (5.3-12.2) % Eos % (Auto) 0.9 (0.8-7.0) Baso % (Auto) 0.2 (0.1-1.2) % Neut # (Auto) 4.12 (1.78-5.38) K/mm3 Lymph # (Auto) 0.66 L (1.32-3.57) K/mm3 [place] # (Auto) 0.69 (0.30-0.82) K/mm3 Eos # (Auto) 0.05 (0.04-0.54) K/mm3 Baso # (Auto) 0.01 (0.01-0.08) K/mm3 Sodium 143 (136-145) mEq/L Potassium 4.3 (3.5-5.1) mEq/L Chloride 113 H (98-107) mEq/L Carbon Dioxide 21 (21-32) mEq/L Anion Gap 13.3 (5-15) BUN 35 H (7-18) mg/dL Creatinine 1.0 (0.7-1.3) mg/dL Est Cr Clr Drug Dosing 54.05 mL/min Estimated GFR (MDRD) > 60 (>60) mL/min BUN/Creatinine Ratio 35.0 H (14-18) Glucose 141 H (83-115) mg/dL POC Glucose 191 H (83-110) mg/dL Calcium 8.5 (8.5-10.1) mg/dL Total Bilirubin 0.3 (0.2-1.0) mg/dL AST 16 (15-37) U/L ALT 21 (16-63) U/L Alkaline Phosphatase 75 (46-116) U/L Total Protein 5.8 L (6.4-8.2) g/dl Albumin 3.1 L (3.4-5.0) g/dl Globulin 2.7 gm/dL Albumin/Globulin Ratio 1.2 (1-2) 11/23/20 Range/Units 06:45 WBC (4.23-9.07) K/mm3 RBC (4.63-6.08) M/mm3 Hgb (13.7-17.5) gm/dl Hct (40.1-51.0) % MCV (79.0-92.2) fl MCH (25.7-32.2) pg MCHC (32.2-35.5) g/dl RDW Std Deviation (35.1-43.9) fL Plt Count (163-337) K/mm3 MPV (9.4-12.3) fl Neut % (Auto) (34.0-67.9) % Lymph % (Auto) (21.8-53.1) % [place] % (Auto) (5.3-12.2) % Eos % (Auto) (0.8-7.0) Baso % (Auto) (0.1-1.2) % Neut # (Auto) (1.78-5.38) K/mm3 Lymph # (Auto) (1.32-3.57) K/mm3 [place] # (Auto) (0.30-0.82) K/mm3 Eos # (Auto) (0.04-0.54) K/mm3 Baso # (Auto) (0.01-0.08) K/mm3 Sodium (136-145) mEq/L Potassium (3.5-5.1) mEq/L Chloride (98-107) mEq/L Carbon Dioxide (21-32) mEq/L Anion Gap (5-15) BUN (7-18) mg/dL Creatinine (0.7-1.3) mg/dL Est Cr Clr Drug Dosing mL/min Estimated GFR (MDRD) (>60) mL/min BUN/Creatinine Ratio (14-18) Glucose (83-115) mg/dL POC Glucose 147 H (83-110) mg/dL Calcium (8.5-10.1) mg/dL Total Bilirubin (0.2-1.0) mg/dL AST (15-37) U/L ALT (16-63) U/L Alkaline Phosphatase (46-116) U/L Total Protein (6.4-8.2) g/dl Albumin (3.4-5.0) g/dl Globulin gm/dL Albumin/Globulin Ratio (1-2) Result Diagrams: 11/23/20 06:25 11/23/20 06:25 Huey Results Last 24 hrs: Microbiology 11/21/20 16:14 Aerobic Blood Culture - Preliminary Blood - Venous - Lab Draw NO GROWTH AFTER 1 DAY Anaerobic Blood Culture - Preliminary NO GROWTH AFTER 1 DAY 11/21/20 15:47 Aerobic Blood Culture - Preliminary Blood - Venous NO GROWTH AFTER 1 DAY Anaerobic Blood Culture - Preliminary NO GROWTH AFTER 1 DAY 11/21/20 15:52 Urine Culture - Preliminary Urine, Clean Catch Gram Negative Rods Sepsis Event Note - Evaluation Sepsis Screening Result: No Definite Risk - Focused Exam Vital Signs: Vital Signs Temp Pulse Resp BP Pulse Ox 11/23/20 09:11 97.6 F 80 16 157/76 H 94 L 11/23/20 03:54 98.7 F 65 15 114/57 L 11/23/20 00:00 98.1 F 16 135/58 L 95 - Problem List & Annotations (1) Hyperkalemia SNOMED Code(s): 18163568 Code(s): E87.5 - HYPERKALEMIA Status: Acute Current Visit: Yes (2) Renal insufficiency SNOMED Code(s): 903154298, 200578135 Code(s): N28.9 - DISORDER OF KIDNEY AND URETER, UNSPECIFIED Status: Acute Current Visit: Yes (3) Severe sepsis SNOMED Code(s): 90226567 Code(s): A41.9 - SEPSIS, UNSPECIFIED ORGANISM; R65.20 - SEVERE SEPSIS WITHOUT SEPTIC SHOCK Status: Acute Current Visit: Yes (4) UTI (urinary tract infection) SNOMED Code(s): 03344223 Code(s): N39.0 - URINARY TRACT INFECTION, SITE NOT SPECIFIED Status: Acute Current Visit: Yes Qualifiers: Urinary tract infection type: site unspecified Hematuria presence: without hematuria Qualified Code(s): N39.0 - Urinary tract infection, site not specified - Problem List Review Problem List Initiated/Reviewed/Updated: Yes - Plan Plan:: Patient is a 79-year-old male with a history of hypertension, bladder cancer, s/p surgery with urostomy bag, and diabetes type 2 who was brought to the ER due to generalized weakness and confusion. Assessment and plan: 1. AMS More alert Etiology unknown. Most likely due to sepsis/infection. Pt also has dementia. He is on memantine 10mg bid. CT of head - no acute change Ammonia 14 Temazepam 15mg bedtime and trazodone 100mg are on hold Monitor 2. Severe sepsis 2nd to UTI - improved/resolved 3. Hypotension, was responsive to IVF resuscitation - improved/resolved Initial BP in the ER was 95/64. After 1L, SBP went up to >100. LA 1.6, CRP 0.2 Blood culture no growth so far IV fluid Antibiotics-Rocephin 4. Acute hypoxic respiratory failure-resolved Etiology unknown. CT chest showed cavitary lesion and calcified granuloma Troponin less than 0.017 x 3 in the ER, desaturation, needed 2-3L Pulse ox Oxygen therapy, maintain oxygen saturation greater than 92% 5. Hypothermia-resolved it initially was 33.5c in the ER. It was up to 36.0 when I saw him in the ER. Monitor temperature and heart rate 6. UTI, 7. History of bladder cancer Urine compatible with UTI use of urostomy bag, bladder cancer, status post surgery Urine culture -gram-negative rods. Sensitivity pending Continue ceftriaxone 1 g daily 8. Hyperkalemia, 3.9 Continue to monitor 9. LUCIUS or LUCIUS on CKD-resolved Creatinine 1.6 today, which was 1.8 yesterday Unknown type and chronicity Avoid nephrotoxic meds Repeat the renal function in the morning 10. Lung cavitary lesion. CT chest showed 1/4cm cavitary leison within the right lower lung. It could represent atypical infecton vs small neoplasm. CT angio was performed at [facility] and [facility] -thick walled cavitary focus measuring up to 1.4 cm in superior segment right lower lobe. 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 Abdominal pain Improved/resolved CT abd - no acute change Antibiotics 12. DM type 2 insulin aspart 45units daily is on hold Metformin 500 mg bid and empagliflozin 10mg daily are on hold Insulin tier 2 Adjust insulin based on BG levels 13. HTN Lisinopril 10mg daily is on hold Hydralazine as needed 14. DVT prophylaxis: Heparin
[2020-11-23] MEDS: cefTRIAXone 1 GM in Sodium Chloride 0.9% 100 ML IV SCH (16:32)
[2020-11-23] MEDS: Furosemide 40 MG Tab PO SCH (18:05)
[2020-11-23] MEDS: Simvastatin 20 MG Tab PO SCH (21:24)
[2020-11-24] MEDS: Heparin Sodium 5,000 Units/ML Vial SUBCUT SCH ×2 (02:40→11:45)
[2020-11-24] MEDS: Insulin Lispro 100 UNIT/ML 10 ML Vial SUBCUT SCH ×3 (08:10→17:52)
[2020-11-24] MEDS ORDERED: Cefdinir 300 MG Cap PO SCH (09:00)
[2020-11-24] MEDS: Sertraline 50 MG Tab PO SCH (09:09)
[2020-11-24] MEDS: Memantine 10 MG Tab PO SCH (09:10)
[2020-11-24] MEDS: Furosemide 40 MG Tab PO SCH (09:11)
[2020-11-24] MEDS ORDERED: Amoxicillin 500 MG Cap PO SCH (12:45)
[2020-11-24] MEDS ORDERED: Amoxicillin/Clavulanate K 875-125 MG Tab PO SCH (12:45)
--- NOTE | 2020-11-24 12:48 | PCM.DCSUM1 ---
Discharge Summary - Hospital Course HPI Initial Comments: Patient is a 79-year-old male with a history of hypertension, bladder cancer, s/p surgery with urostomy bag, and diabetes type 2 who was brought to the ER due to generalized weakness and confusion. Patient is a poor historian. Patient was found to be confused this afternoon and urinated on the floor. In the ER, she was found to be pale and cool. His temperature was 33.5. Her blood pressure was 95/64. His blood pressure was responsive to IV fluid resu scitation. After 1 L, his blood pressure went up to greater than 100. In total 2 to 3 L NS was given in the ER. Creatinine 1.8, potassium was a 6.0. 1 g calcium gluconate, Kayexalate 45 g, D50 and insulin were given in the ER. Urinalysis is a compatible with UTI. CT of the head negative. When I saw this patient in the ER, other than the symptoms mentioned above, he possibly had upper abdominal pain but denied abdomen tenderness. Otherwise denied headache, dizziness, chest pain, shortness of breath, nausea, vomiting, fever or chills. Diagnosis: Stroke: No - Discharge Data Discharge Date: 11/24/20 (Admit date: 11/21/20) Discharge Disposition: Home, Home Health Agency 06 Condition: Fair - Referral to Home Health Date of Face to Face Encounter: 11/24/20 Reason for Homebound Status: See discharge summary Primary Care Physician: Luther Chaudhary MD Skilled Need: see discharge summary - Discharge Diagnosis/Problem(s) (1) AMS (altered mental status) SNOMED Code(s): 210925264 ICD Code: R41.82 - ALTERED MENTAL STATUS, UNSPECIFIED Status: Resolved Priority: High Current Visit: Yes Qualifiers: Altered mental status type: disorientation Qualified Code(s): R41.0 - Disorientation, unspecified (2) Hypoxia SNOMED Code(s): 869905159 ICD Code: R09.02 - HYPOXEMIA Status: Resolved Priority: High Current Visit: Yes (3) Type II diabetes mellitus SNOMED Code(s): 43911276 ICD Code: E11.9 - TYPE 2 DIABETES MELLITUS WITHOUT COMPLICATIONS Status: Chronic Priority: Medium Current Visit: Yes Qualifiers: Diabetes mellitus group home insulin use: with group home use Diabetes mellitus complication status: with other specified complication Qualified Code(s): E11.69 - Type 2 diabetes mellitus with other specified complication; Z79.4 - rat exterminator (current) use of insulin (4) Abdominal pain SNOMED Code(s): 32074128 ICD Code: R10.9 - UNSPECIFIED ABDOMINAL PAIN Status: Resolved Priority: Medium Current Visit: Yes Qualifiers: Abdominal location: unspecified location Qualified Code(s): R10.9 - Unspecified abdominal pain (5) HTN (hypertension) SNOMED Code(s): 19558045 ICD Code: I10 - ESSENTIAL (PRIMARY) HYPERTENSION Status: Chronic Priority: Medium Current Visit: No Qualifiers: Hypertension type: unspecified Qualified Code(s): I10 - Essential (primary) hypertension (6) Hyperkalemia SNOMED Code(s): 99743416 ICD Code: E87.5 - HYPERKALEMIA Status: Resolved Priority: High Current Visit: Yes (7) Lesion of lung SNOMED Code(s): 442606956 ICD Code: R91.1 - SOLITARY PULMONARY NODULE Status: Acute Priority: Medium Current Visit: Yes (8) Renal insufficiency SNOMED Code(s): 284986685, 050219540 ICD Code: N28.9 - DISORDER OF KIDNEY AND URETER, UNSPECIFIED Status: Resolved Priority: High Current Visit: Yes (9) Severe sepsis SNOMED Code(s): 23712343 ICD Code: A41.9 - SEPSIS, UNSPECIFIED ORGANISM; R65.20 - SEVERE SEPSIS W ITHOUT SEPTIC SHOCK Status: Resolved Priority: High Current Visit: Yes (10) UTI (urinary tract infection) SNOMED Code(s): 30865473 ICD Code: N39.0 - URINARY TRACT INFECTION, SITE NOT SPECIFIED Status: Acute Priority: High Current Visit: Yes Qualifiers: Urinary tract infection type: site unspecified Hematuria presence: with hematuria Qualified Code(s): N39.0 - Urinary tract infection, site not specified; R31.9 - Hematuria, unspecified - Patient Summary/Data Consults: Consultations 11/21/20 18:50 OT Evaluation and Treatment [CONS] Routine PT Evaluation and Treatment [CONS] Routine Labs Pending at D/C: None Recommended Follow-up Testing/Procedures: Follow-up with primary care provider within 7-10 days of discharge, sooner if needed -Note patient had abnormal lung lesion on chest CT scan -Consider outpatient pulmonary visit -Recommend repeat CBC, CMP, and magnesium at that visit. Hospital Course: This is a 79-year-old male who presented to ED on 11/21/2020 via [facility] with weakness, confusion, abdominal pain. At that time his daughter reported that he was very confused and not acting normal. Patient does have a history of a chronic urostomy bag secondary to bladder cancer with bladder resection. In the ED he was found to have an elevated white count and hyperkalemia at 6. He was given an albuterol neb, D50, 10 units of insulin R, and calcium gluconate. Anion gap was elevated 21 and his creatinine was elevated to 1.8. Lactic acid was 1.6. CT of the head showed chronic age- related changes but nothing acute and CT of the chest showed a indeterminate cavitary focus within the right midlung with considerations including infection versus neoplasm. His CT abdomen was unremarkable. He was given a 1 L bolus initially and later a 30 mL/kg bolus which improved his blood pressure from 86 systolic to 100. UA was obtained and was positive and grew out Klebsiella pneumonia and Enterococcus facialis. Blood cultures remain negative. He was initially switched from IV Rocephin to cefepime p.o. after the patient was refusing to keep his IV in place. Once his urine grew out Enterococcus he was switched to Augmentin 750 p.o. every 12 hours and he will be discharged on this as well. His leukocytosis did improve. His mental status improved as well. Some concern over whether or not the patient was suicidal as he had made comments that he would rather than go to a residential. He was noted to be somewhat weak and we did suggest SNF or assisted living and he was ultimately refused. He did state that he has had relatives in the past who utilize physician assisted suicide and other states and he stated that that is something he would be interested in if it came down to it. He was asked [place] if he was suicidal and he stated no to me. He did report that he has guns in the house and his daughter reportedly told social work coordinator that she has some concerns with this. It was relayed if there were concerns over this his family should remove the weapons. He otherwise has done well while here. He will be discharged on 7 more days of twice daily 875/150mg Augmentin. All other home medications were continued. Recommend patient follow-up with primary care provider within 7 to 10 days of discharge, sooner if needed. Recommend repeat CBC, CMP, and magnesium at that visit. Patient may benefit from pulmonary consultation regarding lung lesion, which can be set up by primary care provider. I personally met [id number] with Boris Valencia prior to discharge to discuss his homebound status and recommended home health nursing and PT services. Patient has had worsening weakness, difficulty with ambulation, and balance concerns. Because of this it is felt he would benefit from home health nursing services to monitor his overall disease progression, state of health, and assistance with medications. He would also benefit from home health PT for strengthening and balance training. The services can be monitored by the patient's primary care provider, Dr. Gordon, and adjusted as he she is fit. - Patient Instructions Diet: Usual Diet as Tolerated Activity: As Tolerated Showering/Bathing: May Shower Notify Provider of: Fever, Increased Pain, Nausea and/or Vomiting Other/Special Instructions: Follow-up with primary care provider within 7 to 10 days of discharge, sooner if needed. You were prescribed an antibiotic for your urinary tract infection. Take this twice a day with your first dose tonight (11/24/20) and continue until you run out. Be sure to finish this prescription even if you feel 100% better. Resume home medications as instructed. You were given orders for home health nursing and physical therapy. Be sure to continue working with these people. Should symptoms return or worsen contact primary care provider or return the emergency room. - Discharge Plan *PRESCRIPTION DRUG MONITORING PROGRAM REVIEWED*: No *COPY OF PRESCRIPTION DRUG MONITORING REPORT IN PATIENT MARY: No Prescriptions/Med Rec: Amoxicillin/Clavulanate K [Augmentin 875-125 MG] 1 tab PO Q12HR #15 tablet Home Medications: Home Meds Lisinopril 20 mg PO DAILY 10/11/17 [History] Memantine [Namenda] 10 mg PO BID 10/11/17 [History] Sertraline [Zoloft] 200 mg PO DAILY 10/11/17 [History] Fish Oil/[place]-3 Fatty Acids [Fish Oil 1,000 MG] 1 cap PO DAILY 10/10/20 [History] Hydrocodone/Acetaminophen [Hydrocodone-Acetamin 5-325 mg] 1 tab PO DAILY 10/10/20 [History] Simvastatin 20 mg PO BEDTIME 10/10/20 [History] Temazepam [Restoril] 15 mg PO BEDTIME 10/10/20 [History] metFORMIN [Glucophage XR] 500 mg PO BID 10/10/20 [History] traZODone HCl [Trazodone HCl] 100 mg PO DAILY 10/10/20 [History] Empagliflozin [Jardiance] 10 mg PO DAILY 11/21/20 [History] Empagliflozin [Jardiance] 25 mg PO DAILY 11/23/20 [History] Furosemide [Lasix] 40 mg PO DAILY 11/23/20 [History] Insulin NPH Hum/Reg Insulin Hm [Novolin 70-30 Flexpen] 45 units SQ DAILY 11/23/20 [History] Insulin NPH/Insulin Reg,Human [Novolin 70-30] 55 units SQ ASDIRECTED 11/23/20 [History] Amoxicillin/Clavulanate K [Augmentin 875-125 MG] 1 tab PO Q12HR #15 tablet 11/24/20 [Rx] Oxygen Therapy Mode: Room Air Patient Handouts: Acute Kidney Injury, Adult, Hyperkalemia, Sepsis, Diagnosis, Adult, Urinary Tract Infection, Adult, Pulmonary Nodule, Steps to Quit Smoking, Sepsis, Self Care, Adult Forms: ED Department Discharge Referrals: Luther Chaudhary MD [Primary Care Provider] - 12/02/20 9:15 am (Hospital follow-up appointment.) - Discharge Summary/Plan Comment DC Time >30 min.: Yes (45 mins ) - General Info Date of Service: 11/24/20 Admission Dx/Problem (Free Text: Admission Diagnosis/Problem Admission Diagnosis/Problem Sepsis Functional Status: Reports: Pain Controlled, Tolerating Diet, Ambulating, Urinating. Denies: New Symptoms - Review of Systems General: Reports: No Symptoms, Weakness (improved ). Denies: Fever, Fatigue, Malaise, Chills HEENT: Reports: No Symptoms. Denies: Headaches, Sore Throat Pulmonary: Reports: No Symptoms. Denies: Shortness of Breath, Cough, Sputum, Wheezing Cardiovascular: Reports: No Symptoms. Denies: Chest Pain, Palpitations, Dyspnea on Exertion, Edema, Lightheadedness Gastrointestinal: Reports: No Symptoms. Denies: Abdominal Pain, Constipation, Diarrhea, Nausea, Vomiting Genitourinary: Reports: No Symptoms. Denies: Pain Musculoskeletal: Reports: No Symptoms Skin: Reports: No Symptoms. Denies: Cyanosis Neurological: Reports: Pre-Existing Deficit, Difficulty Walking, Weakness. Denies: Confusion, Gait Disturbance Psychiatric: Reports: No Symptoms - Patient Data Vitals - Most Recent: Last Vital Signs Temp 97.2 F 11/24/20 08:30 Pulse 84 11/24/20 08:30 Resp 16 11/24/20 08:30 BP 114/69 11/24/20 08:30 Pulse Ox 97 11/24/20 08:30 Weight - Most Recent: 159 lb 4.8 oz I&O - Last 24 hours: Intake & Output 11/23/20 11/24/20 11/24/20 22:59 06:59 14:59 Intake Total 440 600 120 Output Total 1250 Balance 440 -650 120 Lab Results - Last 24 hrs: Laboratory Results - last 24 hr 11/23/20 11/23/20 11/24/20 Range/Units 17:37 21:05 05:06 WBC 5.41 (4.23-9.07) K/mm3 RBC 4.60 L (4.63-6.08) M/mm3 Hgb 13.8 (13.7-17.5) gm/dl Hct 41.5 (40.1-51.0) % MCV 90.2 (79.0-92.2) fl MCH 30.0 (25.7-32.2) pg MCHC 33.3 (32.2-35.5) g/dl RDW Std Deviation 49.3 H (35.1-43.9) fL Plt Count 146 L (163-337) K/mm3 MPV 12.0 (9.4-12.3) fl Neut % (Auto) 65.2 (34.0-67.9) % Lymph % (Auto) 18.5 L (21.8-53.1) % Perkins % (Auto) 14.2 H (5.3-12.2) % Eos % (Auto) 1.7 (0.8-7.0) Baso % (Auto) 0.2 (0.1-1.2) % Neut # (Auto) 3.53 (1.78-5.38) K/mm3 Lymph # (Auto) 1.00 L (1.32-3.57) K/mm3 Perkins # (Auto) 0.77 (0.30-0.82) K/mm3 Eos # (Auto) 0.09 (0.04-0.54) K/mm3 Baso # (Auto) 0.01 (0.01-0.08) K/mm3 Sodium (136-145) mEq/L Potassium (3.5-5.1) mEq/L Chloride (98-107) mEq/L Carbon Dioxide (21-32) mEq/L Anion Gap (5-15) BUN (7-18) mg/dL Creatinine (0.7-1.3) mg/dL Est Cr Clr Drug Dosing mL/min Estimated GFR (MDRD) (>60) mL/min BUN/Creatinine Ratio (14-18) Glucose (83-115) mg/dL POC Glucose 157 H 161 H (83-110) mg/dL Calcium (8.5-10.1) mg/dL Total Bilirubin (0.2-1.0) mg/dL AST (15-37) U/L ALT (16-63) U/L Alkaline Phosphatase (46-116) U/L Total Protein (6.4-8.2) g/dl Albumin (3.4-5.0) g/dl Globulin gm/dL Albumin/Globulin Ratio (1-2) 11/24/20 11/24/20 11/24/20 Range/Units 05:06 07:46 11:53 WBC (4.23-9.07) K/mm3 RBC (4.63-6.08) M/mm3 Hgb (13.7-17.5) gm/dl Hct (40.1-51.0) % MCV (79.0-92.2) fl MCH (25.7-32.2) pg MCHC (32.2-35.5) g/dl RDW Std Deviation (35.1-43.9) fL Plt Count (163-337) K/mm3 MPV (9.4-12.3) fl Neut % (Auto) (34.0-67.9) % Lymph % (Auto) (21.8-53.1) % Perkins % (Auto) (5.3-12.2) % Eos % (Auto) (0.8-7.0) Baso % (Auto) (0.1-1.2) % Neut # (Auto) (1.78-5.38) K/mm3 Lymph # (Auto) (1.32-3.57) K/mm3 Perkins # (Auto) (0.30-0.82) K/mm3 Eos # (Auto) (0.04-0.54) K/mm3 Baso # (Auto) (0.01-0.08) K/mm3 Sodium 144 (136-145) mEq/L Potassium 4.4 (3.5-5.1) mEq/L Chloride 109 H (98-107) mEq/L Carbon Dioxide 23 (21-32) mEq/L Anion Gap 16.4 H (5-15) BUN 25 H (7-18) mg/dL Creatinine 0.9 (0.7-1.3) mg/dL Est Cr Clr Drug Dosing 60.06 mL/min Estimated GFR (MDRD) > 60 (>60) mL/min BUN/Creatinine Ratio 27.8 H (14-18) Glucose 176 H (83-115) mg/dL POC Glucose 161 H 196 H (83-110) mg/dL Calcium 9.1 (8.5-10.1) mg/dL Total Bilirubin 0.4 (0.2-1.0) mg/dL AST 18 (15-37) U/L ALT 23 (16-63) U/L Alkaline Phosphatase 84 (46-116) U/L Total Protein 6.5 (6.4-8.2) g/dl Albumin 3.4 (3.4-5.0) g/dl Globulin 3.1 gm/dL Albumin/Globulin Ratio 1.1 (1-2) [facility] Results - Last 24 hrs: Microbiology 11/21/20 15:52 Urine Culture - Preliminary Urine, Clean Catch Klebsiella Pneumoniae Gram Positive Cocci 11/21/20 16:14 Aerobic Blood Culture - Preliminary Blood - Venous - Lab Draw NO GROWTH AFTER 2 DAYS Anaerobic Blood Culture - Preliminary NO GROWTH AFTER 2 DAYS 11/21/20 15:47 Aerobic Blood Culture - Preliminary Blood - Venous NO GROWTH AFTER 2 DAYS Anaerobic Blood Culture - Preliminary NO GROWTH AFTER 2 DAYS Med Orders - Current: Current Medications Acetaminophen (Acetaminophen 325 Mg Tab) 650 mg PO Q6H PRN PRN Reason: Pain (Mild 1-3)/fever Albuterol/Ipratropium (Albuterol/Ipratropium 3.0-0.5 Mg/3 Ml Neb Soln) 3 ml NEB Q4H PRN PRN Reason: Shortness Of Breath/wheezing Amoxicillin/Clavulanate Potassium (Amoxicillin/Clavulanate K 875-125 Mg Tab) 1 tab PO Q12HR [facility] Furosemide (Furosemide 40 Mg Tab) 40 mg PO DAILY [facility] Last Admin: 11/24/20 09:11 Dose: 40 mg Documented by: Heparin Sodium (Porcine) (Heparin Sodium 5,000 Units/Ml Vial) 5,000 units SUBCUT Q8H [facility] Last Admin: 11/24/20 11:45 Dose: 5,000 units Documented by: Hydralazine HCl (Hydralazine 20 Mg/Ml Sdv) 10 mg IVPUSH Q4H PRN PRN Reason: Hypertension Promethazine HCl 12.5 mg/ (Sodium Chloride) 50.5 mls @ 100 mls/hr IV Q6H PRN PRN Reason: Nausea/Vomiting Insulin Human Lispro (Insulin Lispro 100 Unit/Ml) 0 unit SUBCUT QIDACANDBED [facility]; Protocol Last Admin: 11/24/20 12:01 Dose: 2 units Documented by: Memantine (Memantine 10 Mg Tab) 10 mg PO BID [facility] Last Admin: 11/24/20 09:10 Dose: 10 mg Documented by: Sertraline HCl (Sertraline 50 Mg Tab) 200 mg PO DAILY [facility] Last Admin: 11/24/20 09:09 Dose: 200 mg Documented by: Simvastatin (Simvastatin 20 Mg Tab) 20 mg PO BEDTIME [facility] Last Admin: 11/23/20 21:24 Dose: 20 mg Documented by: Tramadol HCl (Tramadol 50 Mg Tab) 50 mg PO Q6H PRN PRN Reason: Pain (moderate 4-6) Discontinued Medications Albuterol (Albuterol 0.083% 2.5 Mg/3 Ml Neb Soln) 2.5 mg NEB ONETIME ONE Stop: 11/21/20 16:59 Last Admin: 11/21/20 17:52 Dose: 2.5 mg Documented by: Amoxicillin (Amoxicillin 500 Mg Cap) 500 mg PO Q8H [facility] Calcium Gluconate (Calcium Gluconate 10% 1 Gm/10 Ml Sdv) 1 gm IVPUSH ONETIME ONE Stop: 11/21/20 17:04 Last Admin: 11/21/20 17:49 Dose: 1 gm Documented by: Cefdinir (Cefdinir 300 Mg Cap) 300 mg PO BID [facility] Last Admin: 11/24/20 09:09 Dose: 300 mg Documented by: Dextrose/Water (50% Dextrose In Water 50 Ml Syringe) 50 ml IVPUSH ONETIME ONE Stop: 11/21/20 17:00 Last Admin: 11/21/20 17:59 Dose: 50 ml Documented by: Furosemide (Furosemide 20 Mg/2 Ml Vial) 20 mg IVPUSH ONETIME ONE Stop: 11/22/20 09:01 Last Admin: 11/22/20 10:05 Dose: 20 mg Documented by: Sodium Chloride (Normal Saline) 1,000 mls @ 1,000 mls/hr IV ONETIME ONE Stop: 11/21/20 16:26 Last Admin: 11/21/20 15:36 Dose: 1,000 mls/hr Documented by: Ceftriaxone Sodium 2 gm/ (Sodium Chloride) 100 mls @ 200 mls/hr IV ONETIME ONE Stop: 11/21/20 16:12 Last Admin: 11/21/20 16:31 Dose: 200 mls/hr Documented by: Sodium Chloride (Normal Saline) 100 mls @ 75 mls/hr IV ASDIRECTED [facility] Lactated Ringer's (Ringers, Lactated) 1,000 mls @ 1,000 mls/hr IV .BOLUS ONE Stop: 11/21/20 17:54 Last Admin: 11/21/20 17:59 Dose: 1,000 mls/hr Documented by: Lactated Ringer's (Ringers, Lactated) 250 mls @ 250 mls/hr IV .BOLUS ONE Stop: 11/21/20 17:55 Last Admin: 11/21/20 18:40 Dose: 250 mls/hr Documented by: Lactated Ringer's (Ringers, Lactated) 1,000 mls @ 65 mls/hr IV ASDIRECTED [facility] Last Admin: 11/23/20 03:48 Dose: 65 mls/hr Documented by: Ceftriaxone Sodium 1 gm/ (Sodium Chloride) 100 mls @ 200 mls/hr IV Q24H [facility] Stop: 11/23/20 18:00 Last Admin: 11/23/20 16:32 Dose: 200 mls/hr Documented by: Insulin Human Regular (Insulin Regular, Human 100 Units/Ml 3 Ml Vial) 10 unit IV ONETIME ONE Stop: 11/21/20 17:04 Last Admin: 11/21/20 17:44 Dose: 10 unit Documented by: Iopamidol (Iopamidol 755 Mg/Ml 100 Ml Bottle) 100 ml IVPUSH ONETIME ONE Stop: 11/21/20 15:50 Last Admin: 11/21/20 20:01 Dose: Not Given Documented by: Morphine Sulfate (Morphine 2 Mg/Ml Syringe) 2 mg IVPUSH Q4H PRN PRN Reason: Pain (severe 7-10) Stop: 11/22/20 18:49 Sodium Chloride (Sodium Chloride 0.9% 10 Ml Syringe) 10 ml FLUSH ONETIME PRN PRN Reason: IV FLUSH Last Admin: 11/21/20 16:31 Dose: 10 ml Documented by: Sodium Polystyrene Sulfonate (Sodium Polystyrene Sulfonate 15 Gm/60 Ml Susp 60 Ml Bot) 45 gm PO NOW ONE Stop: 11/21/20 17:04 Last Admin: 11/21/20 17:51 Dose: 45 gm Documented by: Sodium Polystyrene Sulfonate (Sodium Polystyrene Sulfonate 15 Gm/60 Ml Susp 60 Ml Bot) 15 gm PO Q6H [facility] Stop: 11/22/20 15:01 Last Admin: 11/22/20 14:45 Dose: Not Given Documented by: - Exam Quality Assessment: Reports: Urine Catheter (Chronic ), DVT Prophylaxis. Denies: Supplemental Oxygen General: Reports: Alert, Oriented, Cooperative, No Acute Distress HEENT: Reports: Pupils Equal, Pupils Reactive, Mucous Membr. Moist/[place] Neck: Reports: Supple, Trachea Midline Lungs: Reports: Clear to Auscultation, Normal Respiratory Effort Cardiovascular: Reports: Regular Rate, Regular Rhythm GI/Abdominal Exam: Normal Bowel Sounds, Soft, Non-Tender, No Distention (Male) Exam: Deferred Rectal (Males) Exam: Deferred Back Exam: Reports: Normal Inspection, Full Range of Motion Extremities: Normal Inspection, Normal Range of Motion, Non-Tender, No Pedal Edema, Normal Capillary Refill Skin: Reports: Warm, Dry, Intact Neurological: Reports: No New Focal Deficit Psy/Mental Status: Reports: Alert, Normal Affect, Normal Mood
== END 2020-11-24 18:32 | disposition home health service (06) | DRG 871 ==
LOC: JD.ED 15:16 → JD.ICU 17:39 → JD.MS 11-23 12:31
PROVIDERS: ADMIT Internal Medicine; ATTEND Internal Medicine
DX: A41.9 Sepsis, unspecified organism (principal); A41.81 Sepsis due to Enterococcus; N39.0 Urinary tract infection, site not specified; J96.01 Acute respiratory failure with hypoxia; N28.9 Disorder of kidney and ureter, unspecified; N17.9 Acute kidney failure, unspecified; H91.90 Unspecified hearing loss, unspecified ear; R65.20 Severe sepsis without septic shock; A41.89 Other specified sepsis; I25.10 Atherosclerotic heart disease of native coronary artery without angina pectoris; K44.9 Diaphragmatic hernia without obstruction or gangrene; I25.2 Old myocardial infarction; E11.9 Type 2 diabetes mellitus without complications; K21.9 Gastro-esophageal reflux disease without esophagitis; F32.9 Major depressive disorder, single episode, unspecified; T68.XXXA Hypothermia, initial encounter; E87.5 Hyperkalemia; R91.1 Solitary pulmonary nodule; R10.9 Unspecified abdominal pain; I12.9 Hypertensive chronic kidney disease with stage 1 through stage 4 chronic kidney disease, or unspecified chronic kidney disease; E11.22 Type 2 diabetes mellitus with diabetic chronic kidney disease; N18.9 Chronic kidney disease, unspecified; Z20.822 Contact with and (suspected) exposure to COVID-19; Z90.49 Acquired absence of other specified parts of digestive tract; Z85.51 Personal history of malignant neoplasm of bladder; Z79.01 Long term (current) use of anticoagulants; Z79.4 Long term (current) use of insulin; Z79.899 Other long term (current) drug therapy; Z88.5 Allergy status to narcotic agent
CPT/HCPCS: 36415; 70450; 71260; 74177; 80053; 81001; 82140; 82962; 83605; 83735; 84484; 85025; 85610; 85730; 86140; 87040 ×2; 87086; 87088 ×2; 87186 ×2; 93005; 94640; 96365; 99285; J0696; J1815; J7030; U0002; 80048; 93010; 97112-GP; 97116-GP; 97162-GP; 97165-GO; 97530-GP; 99223; 99233; 99239; A9270-GY; J0610; J1644; J1940; J7120

== ENCOUNTER 2021-02-26 19:19 | Inpatient (IN) | payer MEDICARE ==
[2021-02-26] MEDS ORDERED: Sodium Chloride 0.9% 1,000 ML IV ONE (19:55)
[2021-02-26] MEDS ORDERED: Sodium Polystyrene Sulfonate 15 GM/60 ML Susp 60 ML Bot PO ONE (19:56)
[2021-02-26] MEDS ORDERED: Sodium Chloride 0.9% 10 ML Syringe FLUSH PRN (19:56)
--- NOTE | 2021-02-26 20:09 | EDM.PDOC ---
ED HPI GENERAL MEDICAL PROBLEM - General Chief Complaint: General Stated Complaint: SENT OVER BY DOCTOR FOR LABS Time Seen by Provider: 02/26/21 19:24 Source of Information: Reports: Patient, Family History Limitations: Reports: No Limitations - History of Present Illness INITIAL COMMENTS - FREE TEXT/NARRATIVE: Patient is a very pleasant 80-year-old male who is here because he has been feeling tired for the last few weeks and was told by his PCP so was lab work from yesterday was abnormal. His PCP did call to the department to give this morning and patient's creatinine is 2.2 and potassium was 6.0. Looking through his. Previous labs he has frequently had similar numbers though the most recent creatinine was 1.1. Patient states has had somewhat decreased appetite family says he appears to be tired for the last several weeks. He denies any chest pain or pressure any shortness of breath any fever chills or any coughing. He denies any black tarry stools or any swelling to his ankles. He has no complaints at this time other than a headache which he describes as mild and states has been there for several days. He denies any numbness weakness paresthesias or any change with ambulation or his vision.. Onset: Unknown/Unsure Duration: Constant Associated Symptoms: Reports: Headaches. Denies: Fever/Chills, Nausea/Vomiting - Related Data Allergies Allergy/AdvReac Type Severity Reaction Status Date / Time codeine Allergy Cannot Verified 02/26/21 19:49 Remember Home Meds: Home Meds Lisinopril 20 mg PO DAILY 10/11/17 [History] Memantine [Namenda] 10 mg PO BID 10/11/17 [History] Sertraline [Zoloft] 100 mg PO BID 10/11/17 [History] Hydrocodone/Acetaminophen [Hydrocodone-Acetamin 5-325 mg] 1 tab PO DAILY 10/10/20 [History] Simvastatin 20 mg PO BEDTIME 10/10/20 [History] Temazepam [Restoril] 15 mg PO BEDTIME 10/10/20 [History] metFORMIN [Glucophage XR] 750 mg PO BID 10/10/20 [History] traZODone HCl [Trazodone HCl] 100 mg PO DAILY 10/10/20 [History] Chlorthalidone 25 mg PO DAILY 02/26/21 [History] SitaGLIPtin [Januvia] 50 mg DAILY 02/26/21 [History] Sodium Polystyrene Sulfon/Sorb [Sps 15 gm/60 ml Suspension] 15 PO PRN 02/26/21 [History] Past Medical History - Past Health History Medical/Surgical History: Denies Medical/Surgical History HEENT History: Reports: Hard of Hearing Other HEENT History: dentures Cardiovascular History: Reports: CAD, [place] Gastrointestinal History: Reports: GERD, Hiatal Hernia Genitourinary History: Reports: Other (See Below) Other Genitourinary History: bladder cancer hx, urostomy in place for 30+ years Psychiatric History: Reports: Depression Endocrine/Metabolic History: Reports: Diabetes, Type II Hematologic History: Reports: Anticoagulation Therapy Oncologic (Cancer) History: Reports: Bladder - Past Surgical History HEENT Surgical History: Reports: Oral Surgery Cardiovascular Surgical History: Reports: Coronary Artery Stent GI Surgical History: Reports: Cholecystectomy, Small Bowel Other GI Surgeries/Procedures: 2/3 of stomach pouch removed Male Surgical History: Reports: Other (See Below) Other Male Surgeries/Procedures: urinary stoma RLQ Oncologic Surgical History: Reports: Other (See Below) Social & Family History - Family History Family Medical History: No Pertinent Family History - Caffeine Use Caffeine Use: Reports: None - Living Situation & Occupation Living situation: Reports: , with Family (Daughter + [id number]) Occupation: Retired ED ROS GENERAL - Review of Systems Review Of Systems: Comprehensive ROS is negative, except as noted in HPI. ED EXAM, GENERAL - Physical Exam Exam: See Below Exam Limited By: No Limitations General Appearance: Alert, No Apparent Distress Head: Atraumatic Neck: Normal Inspection, Supple Respiratory/Chest: Lungs Clear, Normal Breath Sounds Cardiovascular: Regular Rate, Rhythm, No Edema, No JVD GI/Abdominal: Normal Bowel Sounds, Soft, Non-Tender, No Organomegaly, No Distention Back Exam: Normal Inspection Extremities: Normal Inspection, No Pedal Edema Psychiatric: Normal Affect, Normal Mood Skin Exam: Warm, Dry, Intact Lymphatic: No Adenopathy Course - Vital Signs Text/Narrative:: Patient's repeat labs show a potassium of 6.4 up from his previous 6.0 but his creatinine went down to 1.8 from a 2.2 earlier. Patient's urine from his urostomy does show evidence infected. Patient's other labs were unremarkable. Patient is feeling better at this point but due to his elevating potassium which I have treated with 45 mg Kayexalate and 1 g calcium and 5 units of regular insulin I feel patient should be admitted to the hospital at this time for further observation. I am starting him on some Levaquin for UTI. Patient is willing to stay and is aware of the plan. His EKG shows normal sinus rhythm without any ST or T wave changes. Patient does have a history of atrial fibrillation for which she is on Eliquis. Last Recorded V/S: Last Vital Signs Temp 98.6 F 02/26/21 19:43 Pulse 68 02/26/21 19:43 Resp 18 02/26/21 19:43 BP 104/62 02/26/21 19:43 Pulse Ox 94 L 02/26/21 19:43 - Orders/Labs/Meds Orders: Active Orders 24 hr Category Date Time Status EKG Documentation Completion [RC] STAT Care 02/26/21 20:59 Active Peripheral IV Care [RC] . DIRECTED Care 02/26/21 19:56 Active Sodium Chloride 0.9% [Saline Flush] Med 02/26/21 19:56 Active 10 ml FLUSH ASDIRECTED PRN Peripheral IV Insertion Adult [OM.PC] Routine Oth 02/26/21 19:54 Ordered Medication Orders Sodium Chloride (Sodium Chloride 0.9% 10 Ml Syringe) 10 ml FLUSH ASDIRECTED PRN PRN Reason: Keep Vein Open Last Admin: 02/26/21 20:19 Dose: 10 ml Documented by: RADHA Labs: Laboratory Tests 02/26/21 02/26/21 02/26/21 Range/Units 20:23 20:23 20:23 WBC 8.69 (4.23-9.07) K/mm3 RBC 4.64 (4.63-6.08) M/mm3 Hgb 13.7 (13.7-17.5) gm/dl Hct 42.1 (40.1-51.0) % MCV 90.7 (79.0-92.2) fl MCH 29.5 (25.7-32.2) pg MCHC 32.5 (32.2-35.5) g/dl RDW Std Deviation 47.0 H (35.1-43.9) fL Plt Count 201 (163-337) K/mm3 MPV 11.1 (9.4-12.3) fl Neutrophils % (Manual) 79 H (40-60) % Band Neutrophils % 0 (0-10) % Lymphocytes % (Manual) 14 L (20-40) % Atypical Lymphs % 0 % Monocytes % (Manual) 5 (2-10) % Eosinophils % (Manual) 1 (0.8-7.0) % Basophils % (Manual) 1 (0.2-1.2) Platelet Estimate Adequate RBC Morph Comment Normal Sodium 138 (136-145) mEq/L Potassium 6.4 H* (3.5-5.1) mEq/L Chloride 108 H (98-107) mEq/L Carbon Dioxide 19 L (21-32) mEq/L Anion Gap 17.4 H (5-15) BUN 92 H (7-18) mg/dL Creatinine 1.8 H (0.7-1.3) mg/dL Est Cr Clr Drug Dosing TNP Estimated GFR (MDRD) 36 (>60) mL/min BUN/Creatinine Ratio 51.1 H (14-18) Glucose 148 H (70-99) mg/dL Lactic Acid 0.6 (0.4-2.0) mmol/L Calcium 8.9 (8.5-10.1) mg/dL Total Bilirubin 0.3 (0.2-1.0) mg/dL AST 13 L (15-37) U/L ALT 47 (16-63) U/L Alkaline Phosphatase 125 H (46-116) U/L Total Protein 7.4 (6.4-8.2) g/dl Albumin 4.0 (3.4-5.0) g/dl Globulin 3.4 gm/dL Albumin/Globulin Ratio 1.2 (1-2) Urine Color (Yellow) Urine Appearance (Clear) Urine pH (5.0-8.0) Ur Specific [place] (1.005-1.030) Urine Protein (Negative) Urine Glucose (UA) (Negative) Urine Ketones (Negative) Urine Occult Blood (Negative) Urine Nitrite (Negative) Urine Bilirubin (Negative) Urine Urobilinogen (0.2-1.0) Ur Leukocyte Esterase (Negative) 02/26/21 Range/Units 21:00 WBC (4.23-9.07) K/mm3 RBC (4.63-6.08) M/mm3 Hgb (13.7-17.5) gm/dl Hct (40.1-51.0) % MCV (79.0-92.2) fl MCH (25.7-32.2) pg MCHC (32.2-35.5) g/dl RDW Std Deviation (35.1-43.9) fL Plt Count (163-337) K/mm3 MPV (9.4-12.3) fl Neutrophils % (Manual) (40-60) % Band Neutrophils % (0-10) % Lymphocytes % (Manual) (20-40) % Atypical Lymphs % % Monocytes % (Manual) (2-10) % Eosinophils % (Manual) (0.8-7.0) % Basophils % (Manual) (0.2-1.2) Platelet Estimate RBC Morph Comment Sodium (136-145) mEq/L Potassium (3.5-5.1) mEq/L Chloride (98-107) mEq/L Carbon Dioxide (21-32) mEq/L Anion Gap (5-15) BUN (7-18) mg/dL Creatinine (0.7-1.3) mg/dL Est Cr Clr Drug Dosing Estimated GFR (MDRD) (>60) mL/min BUN/Creatinine Ratio (14-18) Glucose (70-99) mg/dL Lactic Acid (0.4-2.0) mmol/L Calcium (8.5-10.1) mg/dL Total Bilirubin (0.2-1.0) mg/dL AST (15-37) U/L ALT (16-63) U/L Alkaline Phosphatase (46-116) U/L Total Protein (6.4-8.2) g/dl Albumin (3.4-5.0) g/dl Globulin gm/dL Albumin/Globulin Ratio (1-2) Urine Color Yellow (Yellow) Urine Appearance Cloudy H (Clear) Urine pH 7.5 (5.0-8.0) Ur Specific [place] 1.020 (1.005-1.030) Urine Protein Negative (Negative) Urine Glucose (UA) Negative (Negative) Urine Ketones Negative (Negative) Urine Occult Blood Trace-intact H (Negative) Urine Nitrite Negative (Negative) Urine Bilirubin Negative (Negative) Urine Urobilinogen 0.2 (0.2-1.0) Ur Leukocyte Esterase 2+ H (Negative) Meds: Medications Generic Name Dose Route Start Last Admin Trade Name Last PRN Reason Stop Dose Admin Sodium Chloride 10 ml 02/26/21 19:56 02/26/21 20:19 Sodium Chloride 0.9% 10 Ml Syringe FLUSH 10 ml ASDIRECTED PRN Administration Keep Vein Open Discontinued Medications Generic Name Dose Route Start Last Admin Trade Name Last PRN Reason Stop Dose Admin Calcium Gluconate 1 gm 02/26/21 21:13 02/26/21 21:33 Calcium Gluconate 10% 1 Gm/10 Ml Sdv IVPUSH 02/26/21 21:14 1 gm ONETIME ONE Administration Sodium Chloride 1,000 mls @ 500 mls/hr 02/26/21 19:55 02/26/21 20:18 Normal Saline IV 02/26/21 21:54 500 mls/hr ONETIME ONE Administration Insulin Human Regular 5 unit 02/26/21 20:58 02/26/21 21:31 Insulin Regular, Human 100 Units/Ml 3 Ml Vial SUBCUT 02/26/21 20:59 5 unit ONETIME ONE Administration Sodium Polystyrene Sulfonate 45 gm 02/26/21 19:56 02/26/21 20:18 Sodium Polystyrene Sulfonate 15 Gm/60 Ml Susp 60 Ml Bot PO 02/26/21 19:57 45 gm NOW ONE Administration Departure - Departure Time of Disposition: 23:04 Disposition: Refer to Observation Condition: Fair Clinical Impression: Hyperkalemia, Acute renal failure, Generalized weakness - Discharge Information Referrals: Tung Ruvalcaba [facility] [Primary Care Provider] - Forms: ED Department Discharge Sepsis Event Note (ED) - Evaluation Sepsis Screening Result: No Definite Risk - Focused Exam Vital Signs: Vital Signs Temp Pulse Resp BP Pulse Ox 02/26/21 19:43 98.6 F 68 18 104/62 94 L - My Orders Last 24 Hours: My Active Orders 02/26/21 19:54 Peripheral IV Insertion Adult [OM.PC] Routine 02/26/21 19:56 Peripheral IV Care [RC] . DIRECTED Sodium Chloride 0.9% [Saline Flush] 10 ml FLUSH ASDIRECTED PRN 02/26/21 20:59 EKG Documentation Completion [RC] STAT - Assessment/Plan Last 24 Hours: My Active Orders 02/26/21 19:54 Peripheral IV Insertion Adult [OM.PC] Routine 02/26/21 19:56 Peripheral IV Care [RC] . DIRECTED Sodium Chloride 0.9% [Saline Flush] 10 ml FLUSH ASDIRECTED PRN 02/26/21 20:59 EKG Documentation Completion [RC] STAT
[2021-02-26] MEDS ORDERED: Insulin Regular, Human 100 Units/ML 3 ML Vial SUBCUT ONE (20:58)
[2021-02-26] MEDS ORDERED: Calcium Gluconate 10% 1 GM/10 ML SDV IVPUSH ONE (21:13)
[2021-02-26] MEDS ORDERED: cefTRIAXone 1 GM in Sodium Chloride 0.9% 100 ML IV ONE (23:13)
[2021-02-26] MEDS ORDERED: Sodium Chloride 0.9% 100 ML ONE (23:24)
[2021-02-26] MEDS ORDERED: cefTRIAXone 1 GM AdvVial IV ONE (23:24)
[2021-02-26] MEDS ORDERED: Furosemide 40 MG/4 ML VIAL IVPUSH ONE (23:53)
[2021-02-26] MEDS ORDERED: Furosemide 20 MG/2 ML VIAL ONE (23:55)
[2021-02-27] MEDS: Sodium Chloride 0.9% 1,000 ML IV SCH ×3 (01:55→13:03)
--- NOTE | 2021-02-27 07:09 | PCM.HP.2 ---
H&P History of Present Illness - General Date of Service: 02/27/21 Admit Problem/Dx: Admission Diagnosis/Problem Admission Diagnosis/Problem Hyperkalemia - History of Present Illness Initial Comments - Free Text/Narative: This is a 79-year-old male with a history of hypertension, bladder cancer, s/p s urgery with urostomy bag, and diabetes type 2 presenting for evaluation of hyperkalemia. The patient was instructed to go to ED by his clinic team as his serum potassium>6. He presented to ED where he was noted to have potassium>6. He was given kayexlated, IV, lasix, calcium, insulin and dextrose. He also was started on ceftriaxone for presumed UTI. He denies chest pain, sob, nausea, vomiting, headache, dizziness, fever. Repeat potassium was 5.6 this AM - Related Data Allergies/Adverse Reactions: Allergies Allergy/AdvReac Type Severity Reaction Status Date / Time codeine Allergy Cannot Verified 02/26/21 19:49 Remember morphine Allergy Cannot Verified 02/27/21 02:39 Remember Home Medications: Home Meds Lisinopril 20 mg PO DAILY 10/11/17 [History] Memantine [Namenda] 10 mg PO BID 10/11/17 [History] Sertraline [Zoloft] 100 mg PO BID 10/11/17 [History] Hydrocodone/Acetaminophen [Hydrocodone-Acetamin 5-325 mg] 1 tab PO DAILY 10/10/20 [History] Simvastatin 20 mg PO BEDTIME 10/10/20 [History] Temazepam [Restoril] 15 mg PO BEDTIME 10/10/20 [History] metFORMIN [Glucophage XR] 750 mg PO BID 10/10/20 [History] traZODone HCl [Trazodone HCl] 100 mg PO DAILY 10/10/20 [History] Chlorthalidone 25 mg PO DAILY 02/26/21 [History] SitaGLIPtin [Januvia] 50 mg DAILY 02/26/21 [History] Sodium Polystyrene Sulfon/Sorb [Sps 15 gm/60 ml Suspension] 15 PO PRN 02/26/21 [History] Past Medical History - Past Health History Medical/Surgical History: Denies Medical/Surgical History HEENT History: Reports: Hard of Hearing Other HEENT History: dentures Cardiovascular History: Reports: CAD, [place] Other Cardiovascular History: [place] x4 Respiratory History: Reports: Other (See Below) Other Respiratory History: Lung mass Gastrointestinal History: Reports: GERD, Hiatal Hernia Genitourinary History: Reports: Chronic Renal Insuffiency, Pyelonephritis, Urostomy, UTI, Recurrent, Other (See Below) Other Genitourinary History: bladder cancer hx, urostomy in place for 30+ years Musculoskeletal History: Reports: Back Pain, Chronic Neurological History: Reports: Concussion Other Neuro History: confusion Psychiatric History: Reports: Depression Endocrine/Metabolic History: Reports: Diabetes, Type II Hematologic History: Reports: Anticoagulation Therapy Oncologic (Cancer) History: Reports: Bladder - Past Surgical History HEENT Surgical History: Reports: Oral Surgery Cardiovascular Surgical History: Reports: Coronary Artery Stent GI Surgical History: Reports: Cholecystectomy, Small Bowel Other GI Surgeries/Procedures: 2/3 of stomach pouch removed Male Surgical History: Reports: Prostatectomy, Other (See Below) Other Male Surgeries/Procedures: urinary stoma RLQ Oncologic Surgical History: Reports: Other (See Below) Other Oncologic Surgeries/Procedures: 30 yrs ago Social & Family History - Family History Family Medical History: No Pertinent Family History - Tobacco Use Tobacco Use Status *Q: Former Tobacco User Used Tobacco, but Quit: Yes Month/Year Tobacco Last Used: 1989 Second Hand Smoke Exposure: No - Caffeine Use Caffeine Use: Reports: None - Recreational Drug Use Recreational Drug Use: No - Living Situation & Occupation Living situation: Reports: , with Family (Daughter + [id number]) Occupation: Retired H&P Review of Systems - Review of Systems: Review Of Systems: Comprehensive ROS is negative, except as noted in HPI. Exam - Exam Exam: See Below - Vital Signs Vital Signs: Last Vital Signs Temp 97.5 F 02/27/21 04:06 Pulse 77 02/27/21 04:06 Resp 17 02/27/21 04:06 BP 136/89 02/27/21 04:06 Pulse Ox 93 L 02/27/21 04:06 Weight: 150 lb 4.8 oz - Exam Physical Exam Comments:: Gen: no acute distress HEENT: NCAT EOMI MMM Neck: supple CV: RRR normal s1 s2 lungs: CTAB Abd: Soft, nt, nd Neuro: Alert, oriented, moves extremities; appears at baseline state MSK: age appropriate muscle mass Psych: pleasant affect - Patient Data Lab Results Last 24 hrs: Laboratory Results - last 24 hr 02/26/21 02/26/21 02/26/21 Range/Units 20:23 20:23 20:23 WBC 8.69 (4.23-9.07) K/mm3 RBC 4.64 (4.63-6.08) M/mm3 Hgb 13.7 (13.7-17.5) gm/dl Hct 42.1 (40.1-51.0) % MCV 90.7 (79.0-92.2) fl MCH 29.5 (25.7-32.2) pg MCHC 32.5 (32.2-35.5) g/dl RDW Std Deviation 47.0 H (35.1-43.9) fL Plt Count 201 (163-337) K/mm3 MPV 11.1 (9.4-12.3) fl Neutrophils % (Manual) 79 H (40-60) % Band Neutrophils % 0 (0-10) % Lymphocytes % (Manual) 14 L (20-40) % Atypical Lymphs % 0 % Monocytes % (Manual) 5 (2-10) % Eosinophils % (Manual) 1 (0.8-7.0) % Basophils % (Manual) 1 (0.2-1.2) Platelet Estimate Adequate RBC Morph Comment Normal Sodium 138 (136-145) mEq/L Potassium 6.4 H* (3.5-5.1) mEq/L Chloride 108 H (98-107) mEq/L Carbon Dioxide 19 L (21-32) mEq/L Anion Gap 17.4 H (5-15) BUN 92 H (7-18) mg/dL Creatinine 1.8 H (0.7-1.3) mg/dL Est Cr Clr Drug Dosing TNP Estimated GFR (MDRD) 36 (>60) mL/min BUN/Creatinine Ratio 51.1 H (14-18) Glucose 148 H (70-99) mg/dL Lactic Acid 0.6 (0.4-2.0) mmol/L Calcium 8.9 (8.5-10.1) mg/dL Total Bilirubin 0.3 (0.2-1.0) mg/dL AST 13 L (15-37) U/L ALT 47 (16-63) U/L Alkaline Phosphatase 125 H (46-116) U/L Total Protein 7.4 (6.4-8.2) g/dl Albumin 4.0 (3.4-5.0) g/dl Globulin 3.4 gm/dL Albumin/Globulin Ratio 1.2 (1-2) Urine Color (Yellow) Urine Appearance (Clear) Urine pH (5.0-8.0) Ur Specific [place] (1.005-1.030) Urine Protein (Negative) Urine Glucose (UA) (Negative) Urine Ketones (Negative) Urine Occult Blood (Negative) Urine Nitrite (Negative) Urine Bilirubin (Negative) Urine Urobilinogen (0.2-1.0) Ur Leukocyte Esterase (Negative) SARS-CoV-2 RNA (TAYLOR) (NEGATIVE) 02/26/21 02/26/21 02/27/21 Range/Units 21:00 23:16 06:20 WBC (4.23-9.07) K/mm3 RBC (4.63-6.08) M/mm3 Hgb (13.7-17.5) gm/dl Hct (40.1-51.0) % MCV (79.0-92.2) fl MCH (25.7-32.2) pg MCHC (32.2-35.5) g/dl RDW Std Deviation (35.1-43.9) fL Plt Count (163-337) K/mm3 MPV (9.4-12.3) fl Neutrophils % (Manual) (40-60) % Band Neutrophils % (0-10) % Lymphocytes % (Manual) (20-40) % Atypical Lymphs % % Monocytes % (Manual) (2-10) % Eosinophils % (Manual) (0.8-7.0) % Basophils % (Manual) (0.2-1.2) Platelet Estimate RBC Morph Comment Sodium 145 (136-145) mEq/L Potassium 5.6 H (3.5-5.1) mEq/L Chloride 113 H (98-107) mEq/L Carbon Dioxide 19 L (21-32) mEq/L Anion Gap 18.6 H (5-15) BUN 75 H (7-18) mg/dL Creatinine 1.1 (0.7-1.3) mg/dL Est Cr Clr Drug Dosing 46.59 Estimated GFR (MDRD) > 60 (>60) mL/min BUN/Creatinine Ratio 68.2 H (14-18) Glucose 111 H (70-99) mg/dL Lactic Acid (0.4-2.0) mmol/L Calcium 8.8 (8.5-10.1) mg/dL Total Bilirubin 0.3 (0.2-1.0) mg/dL AST 23 (15-37) U/L ALT 46 (16-63) U/L Alkaline Phosphatase 110 (46-116) U/L Total Protein 7.1 (6.4-8.2) g/dl Albumin 3.6 (3.4-5.0) g/dl Globulin 3.5 gm/dL Albumin/Globulin Ratio 1.0 (1-2) Urine Color Yellow (Yellow) Urine Appearance Cloudy H (Clear) Urine pH 7.5 (5.0-8.0) Ur Specific [place] 1.020 (1.005-1.030) Urine Protein Negative (Negative) Urine Glucose (UA) Negative (Negative) Urine Ketones Negative (Negative) Urine Occult Blood Trace-intact H (Negative) Urine Nitrite Negative (Negative) Urine Bilirubin Negative (Negative) Urine Urobilinogen 0.2 (0.2-1.0) Ur Leukocyte Esterase 2+ H (Negative) SARS-CoV-2 RNA (TAYLOR) Negative (NEGATIVE) Result Diagrams: 02/26/21 20:23 02/27/21 06:20 Sepsis Event Note - Evaluation Sepsis Screening Result: No Definite Risk - Focused Exam Vital Signs: Vital Signs Temp Temp Pulse Pulse Resp BP BP 02/27/21 04:06 97.5 F 77 17 136/89 02/27/21 00:56 97.7 F 74 12 154/76 H 02/26/21 23:57 70 18 124/66 02/26/21 23:19 71 18 132/65 02/26/21 19:43 98.6 F 68 18 104/62 Pulse Ox 02/27/21 04:06 93 L 02/27/21 00:56 95 02/26/21 23:57 91 L 02/26/21 23:19 93 L 02/26/21 19:43 94 L *Q Meaningful Use (ADM) - VTE *Q VTE Criteria *Q: 1 Problem List Initiated/Reviewed/Updated: Yes Orders Last 24hrs: Active Orders 24 hr Category Date Time Status Admission Status [Patient Status] [ADT] Routine ADT 02/26/21 23:42 Active Bedrest Bathroom Privileges [RC] ASDIRECTED Care 02/27/21 01:29 Active Heart Healthy Diet [DIET] Diet 02/27/21 Breakfast Active Sodium Chloride 0.9% [Normal Saline] 1,000 ml Med 02/27/21 01:30 Active IV ASDIRECTED Sodium Chloride 0.9% [Saline Flush] Med 02/26/21 19:56 Active 10 ml FLUSH ASDIRECTED PRN cefTRIAXone [Rocephin] 1 gm Med 02/27/21 21:00 Active Sodium Chloride 0.9% [Normal Saline] 100 ml IV BEDTIME Peripheral IV Insertion Adult [OM.PC] Routine Oth 02/26/21 19:54 Ordered Resuscitation Status Routine Resus Stat 02/27/21 01:29 Ordered Medication Orders Sodium Chloride (Normal Saline) 1,000 mls @ 250 mls/hr IV ASDIRECTED GLORIA Last Admin: 02/27/21 06:27 Dose: 250 mls/hr Documented by: Infusion: 02/27/21 05:55 Dose: 250 mls/hr Documented by: Admin: 02/27/21 01:55 Dose: 250 mls/hr Documented by: CHANDRIKA Ceftriaxone Sodium 1 gm/ (Sodium Chloride) 100 mls @ 200 mls/hr IV BEDTIME GLORIA Sodium Chloride (Sodium Chloride 0.9% 10 Ml Syringe) 10 ml FLUSH ASDIRECTED PRN PRN Reason: Keep Vein Open Last Admin: 02/26/21 20:19 Dose: 10 ml Documented by: RADHA Assessment/Plan Comment:: Assessment: This is a 79-year-old male with a history of hypertension, bladder cancer, s/p surgery with urostomy bag, and diabetes type 2 presenting for evaluation of hyperkalemia. The patient was instructed to go to ED by his clinic team as his serum potassium>6. He presented to ED where he was noted to have potassium>6. He was given kayexlated, IV, lasix, calcium, insulin and dextrose. Repeat potassium was 5.6 this AM 1. Hyperkalemia 2. Acute Kidney Injury 3. Hx of HTN 4. Hx of bladder cancer with chronic urostomy bag 5. Suspected UTI 6. Type II DM Plan -admit to inpatient -tele -repeat k this afternoon -IVF+lasix -continue ceftriaxone -f/u x -hold metformin/januvia/start SSI -hold lisinopril -avoid nephrotoxic agents Code-DNR/DNI DVT ppx-heparin Dispo-anticipated discharge in 2-3 days - Mortality Measure Prognosis:: Good
[2021-02-27] MEDS ORDERED: Lactated Ringers 1,000 ML IV ONE (07:11)
[2021-02-27] MEDS ORDERED: Ondansetron 4 MG/2 ML SDV IV PRN (07:21)
[2021-02-27] MEDS ORDERED: Acetaminophen 325 MG Tab PO PRN (07:21)
[2021-02-27] MEDS ORDERED: Furosemide 20 MG/2 ML VIAL IVPUSH ONE (09:00)
[2021-02-27] MEDS: Heparin Sodium 5,000 Units/ML Vial SUBCUT SCH ×2 (09:04→17:12)
[2021-02-27] MEDS: Sertraline 50 MG Tab PO SCH ×2 (09:07→21:47)
[2021-02-27] MEDS: Chlorthalidone 25 MG Tab PO SCH (09:07)
[2021-02-27] MEDS: Memantine 10 MG Tab PO SCH ×2 (09:08→21:47)
[2021-02-27] MEDS: Acetaminophen/HYDROcodone 325-5 MG Tab PO SCH (09:10)
[2021-02-27] MEDS: Insulin Lispro 100 UNIT/ML 10 ML Vial SUBCUT SCH ×3 (12:04→21:48)
[2021-02-27] MEDS ORDERED: cefTRIAXone 1 GM in Sodium Chloride 0.9% 100 ML IV SCH (21:00)
[2021-02-27] MEDS ORDERED: Temazepam 15 MG Cap PO SCH (21:00)
[2021-02-28] MEDS: Heparin Sodium 5,000 Units/ML Vial SUBCUT SCH ×2 (00:19→08:33)
[2021-02-28] MEDS: Sodium Chloride 0.9% 1,000 ML IV SCH (03:28)
[2021-02-28] MEDS: Insulin Lispro 100 UNIT/ML 10 ML Vial SUBCUT SCH ×2 (07:24→11:53)
[2021-02-28] MEDS: Memantine 10 MG Tab PO SCH (08:30)
[2021-02-28] MEDS: Acetaminophen/HYDROcodone 325-5 MG Tab PO SCH (08:31)
[2021-02-28] MEDS: Sertraline 50 MG Tab PO SCH (08:31)
[2021-02-28] MEDS: Chlorthalidone 25 MG Tab PO SCH (08:31)
--- NOTE | 2021-02-28 12:05 | PCM.DCSUM1 ---
Discharge Summary - Hospital Course HPI Initial Comments: This is a 79-year-old male with a history of hypertension, bladder cancer, s/p surgery with urostomy bag, and diabetes type 2 presenting for evaluation of hyperkalemia. The patient was instructed to go to ED by his clinic team as his serum potassium>6. He presented to ED where he was noted to have potassium>6. He was given Kayexalate, IV, Lasix, calcium, insulin and dextrose. He also was started on ceftriaxone for presumed UTI. He denies chest pain, sob, nausea, vomiting, headache, dizziness, fever. Repeat potassium was 5.6 this AM Diagnosis: Stroke: No - Discharge Data Discharge Date: 02/28/21 (Admit date: 02/26/2021) Discharge Disposition: Home, Self-Care 01 Condition: Good - Referral to Home Health Primary Care Physician: Tung Ruvalcaba NP - Discharge Diagnosis/Problem(s) (1) Acute renal failure SNOMED Code(s): 96186751 ICD Code: N17.9 - ACUTE KIDNEY FAILURE, UNSPECIFIED Status: Resolved Priority: High Current Visit: Yes Qualifiers: Acute renal failure type: unspecified Qualified Code(s): N17.9 - Acute kidney failure, unspecified (2) Generalized weakness SNOMED Code(s): 33037755 ICD Code: R53.1 - WEAKNESS Status: Resolved Priority: High Current Visit: Yes (3) Hyperkalemia SNOMED Code(s): 32445356 ICD Code: E87.5 - HYPERKALEMIA Status: Resolved Priority: High Current Visit: Yes (4) Presence of urostomy SNOMED Code(s): 401778216 ICD Code: Z93.6 - OTHER ARTIFICIAL OPENINGS OF URINARY TRACT STATUS Status: Chronic Priority: Low Current Visit: No - Patient Summary/Data Labs Pending at D/C: None. Repeat CMP ordered for 03-03-2021 with results to PCP. Recommended Follow-up Testing/Procedures: Follow-up with primary care provider within 7 to 10 days of discharge, sooner if needed. -Patient was started on Kayexalate due to multiple episodes of hyperkalemia. -First Kayexalate dose on 03/05/2021. -We will continue Kayexalate every 10 days thereafter -Please monitor patient's potassium and adjust dosing as needed. -Orders placed for outpatient dietitian consult at next available -Repeat CMP ordered for 03/03/2021 with results to primary care provider. Recommend outpatient dietitian consult. Orders placed for this. Hospital Course: This is an 80-year-old male who was sent to ED after labs at his primary care provider office revealed a creatinine of 2.2 and a potassium of 6.0. He denies any infectious symptoms. Denies any weakness, paresthesias, or any difficulty with ambulation. In the ED was found to have a potassium of 6.4 and a creatinine of 1.8 with a GFR of 36. He is given 1 g of calcium gluconate, 5 units of regular insulin, and 45 g of Kayexalate. He is admitted to the hospital for further monitoring and management. He was also given Rocephin as his UA was noted to have 2+ leukocyte esterase. Unfortunately no micro was performed and no urine cultures were sent. Given his urostomy, lack of urinary symptoms, and lack of lab results which would indicate an infection it is felt this is likely normal for this patient. Antibiotics will not be continued at discharge. After initial treatment in the ED potassium was down to 5.6 with a repeat of 4.2 and subsequently 3.5 on the day of discharge. He does have a history of hyperkalemia with a potassium of 6.0 noted on 11-21-2020, and 5.8 on 12-31-2020. We will start the patient on 15 g of Kayexalate with his first dose on 03/05/2021. He should take this every 10 days thereafter. Orders were placed for repeat CMP on 03/03/2021. Orders were also placed for outpatient dietitian follow-up. We discussed proper hydration and avoiding calcium rich foods. Patient was presented handouts on hyperkalemia and potassium content of foods. Recommend follow-up with primary care provider within 7 to 10 days of discharge, sooner if needed. Recommend recheck CBC, CMP, and magnesium at that visit. Please monitor patient's potassium closely. Patient discharged home today. - Patient Instructions Diet: Usual Diet as Tolerated Diet, Other: Avoid excess potassium Activity: As Tolerated Driving: Do Not Drive Showering/Bathing: May Shower Notify Provider of: Fever, Increased Pain, Nausea and/or Vomiting Other/Special Instructions: Up with your primary care provider within 7 to 10 days of discharge, sooner if needed. Recommend dietitian follow-up after discharge. Orders for this have been sent. Please come to our clinic to recheck your labs with a blood draw on 03/03/2021. Results of this will be sent to your primary care provider. When you came to emergency room your potassium was very high. In reviewing your prior labs it appears this has been a trend for you. We will therefore start you on a medication that you will take every 10 days to keep your potassium low. This medication is called Kayexalate. You should take your first dose on 03/05/2021 and then take it every 10 days thereafter. Your primary care provider will monitor this and may increase or decrease dosing frequency in the future. We recommend you try to avoid potassium as much as possible. You were given information on potassium content of foods as a guide. It does not appear that you have a urinary tract infection. You will not be prescribed antibiotics after discharge. Should symptoms return or worsen contact your primary care provider or return to the emergency room. - Discharge Plan *PRESCRIPTION DRUG MONITORING PROGRAM REVIEWED*: No *COPY OF PRESCRIPTION DRUG MONITORING REPORT IN PATIENT MARY: No Prescriptions/Med Rec: Sodium Polystyrene Sulfonate [Kayexalate] 15 gm PO ASDIRECTED #10 cup Home Medications: Home Meds Lisinopril 20 mg PO DAILY 10/11/17 [History] Memantine [Namenda] 10 mg PO BID 10/11/17 [History] Sertraline [Zoloft] 100 mg PO BID 10/11/17 [History] Hydrocodone/Acetaminophen [Hydrocodone-Acetamin 5-325 mg] 1 tab PO DAILY 10/10/20 [History] Simvastatin 20 mg PO BEDTIME 10/10/20 [History] Temazepam [Restoril] 15 mg PO BEDTIME 10/10/20 [History] metFORMIN [Glucophage XR] 750 mg PO BID 10/10/20 [History] traZODone HCl [Trazodone HCl] 100 mg PO DAILY 10/10/20 [History] Chlorthalidone 25 mg PO DAILY 02/26/21 [History] SitaGLIPtin [Januvia] 50 mg DAILY 02/26/21 [History] Sodium Polystyrene Sulfon/Sorb [Sps 15 gm/60 ml Suspension] 15 PO PRN 02/26/21 [History] Sodium Polystyrene Sulfonate [Kayexalate] 15 gm PO ASDIRECTED #10 cup 02/28/21 [Rx] Oxygen Therapy Mode: Room Air Patient Handouts: Hyperkalemia, [id number], Potassium Content of Foods Referrals: Tung Ruvalcaba, FILM LABORATORY TECHNICIAN [Primary Care Provider] - (Please call the clinic tomorrow and make an appointment to see Tung in 7-10 days.) - Discharge Summary/Plan Comment DC Time >30 min.: No - General Info Date of Service: 02/28/21 Admission Dx/Problem (Free Text: Admission Diagnosis/Problem Admission Diagnosis/Problem Hyperkalemia Functional Status: Reports: Pain Controlled, Tolerating Diet, Ambulating, Urinating. Denies: New Symptoms - Review of Systems General: Reports: No Symptoms. Denies: Fever, Weakness, Fatigue, Malaise, Chills HEENT: Reports: No Symptoms. Denies: Headaches, Sore Throat Pulmonary: Reports: No Symptoms. Denies: Shortness of Breath, Cough Cardiovascular: Reports: No Symptoms. Denies: Chest Pain, Palpitations, Dyspnea on Exertion, Edema Gastrointestinal: Reports: No Symptoms. Denies: Abdominal Pain, Constipation, Diarrhea, Nausea, Vomiting Genitourinary: Reports: No Symptoms. Denies: Pain Musculoskeletal: Reports: No Symptoms Skin: Reports: No Symptoms. Denies: Cyanosis Neurological: Reports: No Symptoms. Denies: Confusion, Difficulty Walking, Gait Disturbance Psychiatric: Reports: No Symptoms - Patient Data Vitals - Most Recent: Last Vital Signs Temp 98.1 F 02/28/21 11:38 Pulse 65 02/28/21 11:38 Resp 16 02/28/21 11:38 BP 142/54 H 02/28/21 11:38 Pulse Ox 95 02/28/21 11:38 Weight - Most Recent: 151 lb 6.4 oz I&O - Last 24 hours: Intake & Output 02/27/21 02/28/21 02/28/21 22:59 06:59 14:59 Intake Total 2320 1275 Output Total 1675 1475 Balance 645 -200 Lab Results - Last 24 hrs: Laboratory Results - last 24 hr 02/27/21 02/27/21 02/27/21 Range/Units 11:44 14:18 16:29 WBC (4.23-9.07) K/mm3 RBC (4.63-6.08) M/mm3 Hgb (13.7-17.5) gm/dl Hct (40.1-51.0) % MCV (79.0-92.2) fl MCH (25.7-32.2) pg MCHC (32.2-35.5) g/dl RDW Std Deviation (35.1-43.9) fL Plt Count (163-337) K/mm3 MPV (9.4-12.3) fl Neut % (Auto) (34.0-67.9) % Lymph % (Auto) (21.8-53.1) % [place] % (Auto) (5.3-12.2) % Eos % (Auto) (0.8-7.0) Baso % (Auto) (0.1-1.2) % Neut # (Auto) (1.78-5.38) K/mm3 Lymph # (Auto) (1.32-3.57) K/mm3 [place] # (Auto) (0.30-0.82) K/mm3 Eos # (Auto) (0.04-0.54) K/mm3 Baso # (Auto) (0.01-0.08) K/mm3 Sodium (136-145) mEq/L Potassium 4.2 (3.5-5.1) mEq/L Chloride (98-107) mEq/L Carbon Dioxide (21-32) mEq/L Anion Gap (5-15) BUN (7-18) mg/dL Creatinine (0.7-1.3) mg/dL Est Cr Clr Drug Dosing mL/min Estimated GFR (MDRD) (>60) mL/min BUN/Creatinine Ratio (14-18) Glucose (70-99) mg/dL POC Glucose 128 H 124 H (70-99) mg/dL Calcium (8.5-10.1) mg/dL Total Bilirubin (0.2-1.0) mg/dL AST (15-37) U/L ALT (16-63) U/L Alkaline Phosphatase (46-116) U/L Total Protein (6.4-8.2) g/dl Albumin (3.4-5.0) g/dl Globulin gm/dL Albumin/Globulin Ratio (1-2) 02/27/21 02/28/21 02/28/21 Range/Units 21:46 05:55 05:55 WBC 6.17 (4.23-9.07) K/mm3 RBC 4.46 L (4.63-6.08) M/mm3 Hgb 13.2 L (13.7-17.5) gm/dl Hct 39.8 L (40.1-51.0) % MCV 89.2 (79.0-92.2) fl MCH 29.6 (25.7-32.2) pg MCHC 33.2 (32.2-35.5) g/dl RDW Std Deviation 46.1 H (35.1-43.9) fL Plt Count 185 (163-337) K/mm3 MPV 11.1 (9.4-12.3) fl Neut % (Auto) 70.9 H (34.0-67.9) % Lymph % (Auto) 18.3 L (21.8-53.1) % [place] % (Auto) 8.8 (5.3-12.2) % Eos % (Auto) 1.5 (0.8-7.0) Baso % (Auto) 0.3 (0.1-1.2) % Neut # (Auto) 4.38 (1.78-5.38) K/mm3 Lymph # (Auto) 1.13 L (1.32-3.57) K/mm3 [place] # (Auto) 0.54 (0.30-0.82) K/mm3 Eos # (Auto) 0.09 (0.04-0.54) K/mm3 Baso # (Auto) 0.02 (0.01-0.08) K/mm3 Sodium 147 H (136-145) mEq/L Potassium 3.5 (3.5-5.1) mEq/L Chloride 113 H (98-107) mEq/L Carbon Dioxide 20 L (21-32) mEq/L Anion Gap 17.5 H (5-15) BUN 35 H D (7-18) mg/dL Creatinine 0.7 (0.7-1.3) mg/dL Est Cr Clr Drug Dosing 73.21 mL/min Estimated GFR (MDRD) > 60 (>60) mL/min BUN/Creatinine Ratio 50.0 H (14-18) Glucose 124 H (70-99) mg/dL POC Glucose 133 H (70-99) mg/dL Calcium 8.9 (8.5-10.1) mg/dL Total Bilirubin 0.3 (0.2-1.0) mg/dL AST 22 (15-37) U/L ALT 40 (16-63) U/L Alkaline Phosphatase 99 (46-116) U/L Total Protein 6.8 (6.4-8.2) g/dl Albumin 3.5 (3.4-5.0) g/dl Globulin 3.3 gm/dL Albumin/Globulin Ratio 1.1 (1-2) 02/28/21 02/28/21 Range/Units 06:53 11:37 WBC (4.23-9.07) K/mm3 RBC (4.63-6.08) M/mm3 Hgb (13.7-17.5) gm/dl Hct (40.1-51.0) % MCV (79.0-92.2) fl MCH (25.7-32.2) pg MCHC (32.2-35.5) g/dl RDW Std Deviation (35.1-43.9) fL Plt Count (163-337) K/mm3 MPV (9.4-12.3) fl Neut % (Auto) (34.0-67.9) % Lymph % (Auto) (21.8-53.1) % [place] % (Auto) (5.3-12.2) % Eos % (Auto) (0.8-7.0) Baso % (Auto) (0.1-1.2) % Neut # (Auto) (1.78-5.38) K/mm3 Lymph # (Auto) (1.32-3.57) K/mm3 [place] # (Auto) (0.30-0.82) K/mm3 Eos # (Auto) (0.04-0.54) K/mm3 Baso # (Auto) (0.01-0.08) K/mm3 Sodium (136-145) mEq/L Potassium (3.5-5.1) mEq/L Chloride (98-107) mEq/L Carbon Dioxide (21-32) mEq/L Anion Gap (5-15) BUN (7-18) mg/dL Creatinine (0.7-1.3) mg/dL Est Cr Clr Drug Dosing mL/min Estimated GFR (MDRD) (>60) mL/min BUN/Creatinine Ratio (14-18) Glucose (70-99) mg/dL POC Glucose 115 H 165 H (70-99) mg/dL Calcium (8.5-10.1) mg/dL Total Bilirubin (0.2-1.0) mg/dL AST (15-37) U/L ALT (16-63) U/L Alkaline Phosphatase (46-116) U/L Total Protein (6.4-8.2) g/dl Albumin (3.4-5.0) g/dl Globulin gm/dL Albumin/Globulin Ratio (1-2) Med Orders - Current: Current Medications Acetaminophen (Acetaminophen 325 Mg Tab) 650 mg PO Q4H PRN PRN Reason: Pain (Mild 1-3)/fever Hydrocodone Bitart/Acetaminophen (Acetaminophen/Hydrocodone 325-5 Mg Tab) 1 tab PO DAILY [facility] Last Admin: 02/28/21 08:31 Dose: 1 tab Documented by: Chlorthalidone (Chlorthalidone 25 Mg Tab) 25 mg PO DAILY [facility] Last Admin: 02/28/21 08:31 Dose: 25 mg Documented by: Heparin Sodium (Porcine) (Heparin Sodium 5,000 Units/Ml Vial) 5,000 units SUBCUT Q8H [facility] Last Admin: 02/28/21 08:33 Dose: 5,000 units Documented by: Sodium Chloride (Normal Saline) 1,000 mls @ 75 mls/hr IV ASDIRECTED [facility] Last Admin: 02/28/21 03:28 Dose: 75 mls/hr Documented by: Ceftriaxone Sodium 1 gm/ (Sodium Chloride) 100 mls @ 200 mls/hr IV BEDTIME [facility] Last Admin: 02/27/21 21:48 Dose: 200 mls/hr Documented by: Insulin Human Lispro (Insulin Lispro 100 Unit/Ml 10 Ml Vial) 0 unit SUBCUT QIDACANDBED [facility]; Protocol Last Admin: 02/28/21 11:53 Dose: Not Given Documented by: Memantine (Memantine 10 Mg Tab) 10 mg PO BID [facility] Last Admin: 02/28/21 08:30 Dose: 10 mg Documented by: Ondansetron HCl (Ondansetron 4 Mg/2 Ml Sdv) 4 mg IV Q4H PRN PRN Reason: Nausea/Vomiting Sertraline HCl (Sertraline 50 Mg Tab) 100 mg PO BID [facility] Last Admin: 02/28/21 08:31 Dose: 100 mg Documented by: Sodium Chloride (Sodium Chloride 0.9% 10 Ml Syringe) 10 ml FLUSH ASDIRECTED PRN PRN Reason: Keep Vein Open Last Admin: 02/26/21 20:19 Dose: 10 ml Documented by: Temazepam (Temazepam 15 Mg Cap) 15 mg PO BEDTIME [facility] Last Admin: 02/27/21 21:47 Dose: 15 mg Documented by: Discontinued Medications Calcium Gluconate (Calcium Gluconate 10% 1 Gm/10 Ml Sdv) 1 gm IVPUSH ONETIME ONE Stop: 02/26/21 21:14 Last Admin: 02/26/21 21:33 Dose: 1 gm Documented by: Ceftriaxone Sodium (Ceftriaxone 1 Gm Advvial) Confirm Administered Dose 1 gm IV .STK-MED ONE Stop: 02/26/21 23:25 Last Admin: 02/26/21 23:28 Dose: 1 gm Documented by: Furosemide (Furosemide 40 Mg/4 Ml Vial) 20 mg IVPUSH NOW ONE Stop: 02/26/21 23:54 Last Admin: 02/26/21 23:57 Dose: Not Given Documented by: Furosemide (Furosemide 20 Mg/2 Ml Vial) Confirm Administered Dose 20 mg .ROUTE .STK-MED ONE Stop: 02/26/21 23:56 Last Admin: 02/26/21 23:56 Dose: 20 mg Documented by: Furosemide (Furosemide 20 Mg/2 Ml Vial) 20 mg IVPUSH ONETIME ONE Stop: 02/27/21 09:01 Last Admin: 02/27/21 09:00 Dose: 20 mg Documented by: Sodium Chloride (Normal Saline) 1,000 mls @ 500 mls/hr IV ONETIME ONE Stop: 02/26/21 21:54 Last Admin: 02/26/21 20:18 Dose: 500 mls/hr Documented by: Ceftriaxone Sodium 1 gm/ (Sodium Chloride) 100 mls @ 200 mls/hr IV ONETIME ONE Stop: 02/26/21 23:42 Last Admin: 02/26/21 23:28 Dose: Not Given Documented by: Sodium Chloride (Normal Saline) Confirm Administered Dose 100 mls @ as directed .ROUTE .STK-MED ONE Stop: 02/26/21 23:25 Last Admin: 02/26/21 23:28 Dose: 100 mls/hr Documented by: Lactated Ringer's (Ringers, Lactated) 1,000 mls @ 500 mls/hr IV .BOLUS ONE Stop: 02/27/21 09:10 Last Admin: 02/27/21 07:40 Dose: 500 mls/hr Documented by: Insulin Human Regular (Insulin Regular, Human 100 Units/Ml 3 Ml Vial) 5 unit SUBCUT ONETIME ONE Stop: 02/26/21 20:59 Last Admin: 02/26/21 21:31 Dose: 5 unit Documented by: Sodium Polystyrene Sulfonate (Sodium Polystyrene Sulfonate 15 Gm/60 Ml Susp 60 Ml Bot) 45 gm PO NOW ONE Stop: 02/26/21 19:57 Last Admin: 02/26/21 20:18 Dose: 45 gm Documented by: - Exam Quality Assessment: Reports: DVT Prophylaxis. Denies: Supplemental Oxygen, Urine Catheter (Urostomy bag in right abdomen) General: Reports: Alert, Oriented, Cooperative HEENT: Reports: Pupils Equal, Pupils Reactive, Mucous Membr. Moist/[place] Neck: Reports: Supple, Trachea Midline Lungs: Reports: Clear to Auscultation, Normal Respiratory Effort Cardiovascular: Reports: Regular Rate, Regular Rhythm GI/Abdominal Exam: Normal Bowel Sounds, Soft, Non-Tender, No Distention, Other (Urostomy in place in right lower abdomen) (Male) Exam: Deferred Rectal (Males) Exam: Deferred Back Exam: Reports: Normal Inspection, Full Range of Motion Extremities: Normal Inspection, Normal Range of Motion, Non-Tender, No Pedal Edema, Normal Capillary Refill Skin: Reports: Warm, Dry, Intact Neurological: Reports: No New Focal Deficit Psy/Mental Status: Reports: Alert, Normal Affect, Normal Mood
== END 2021-02-28 13:52 | disposition home or self-care (01) | DRG 641 ==
LOC: JD.ED 19:19 → SUPCPDRO 19:19 → JD.MS 23:42
PROVIDERS: ADMIT Hospitalist; ATTEND Hospitalist
DX: E87.5 Hyperkalemia (principal); N17.9 Acute kidney failure, unspecified; R53.1 Weakness; I12.9 Hypertensive chronic kidney disease with stage 1 through stage 4 chronic kidney disease, or unspecified chronic kidney disease; H91.90 Unspecified hearing loss, unspecified ear; E11.9 Type 2 diabetes mellitus without complications; I25.10 Atherosclerotic heart disease of native coronary artery without angina pectoris; K44.9 Diaphragmatic hernia without obstruction or gangrene; K21.9 Gastro-esophageal reflux disease without esophagitis; Z66 Do not resuscitate; Z20.822 Contact with and (suspected) exposure to COVID-19; I48.91 Unspecified atrial fibrillation; M54.9 Dorsalgia, unspecified; G89.29 Other chronic pain; N18.9 Chronic kidney disease, unspecified; F32.9 Major depressive disorder, single episode, unspecified; E11.22 Type 2 diabetes mellitus with diabetic chronic kidney disease; Z87.891 Personal history of nicotine dependence; Z93.6 Other artificial openings of urinary tract status; Z85.51 Personal history of malignant neoplasm of bladder; I25.2 Old myocardial infarction; Z79.01 Long term (current) use of anticoagulants; Z95.5 Presence of coronary angioplasty implant and graft; Z90.49 Acquired absence of other specified parts of digestive tract; Z90.79 Acquired absence of other genital organ(s); Z79.84 Long term (current) use of oral hypoglycemic drugs; Z79.899 Other long term (current) drug therapy
CPT/HCPCS: 36415; 80053; 81003; 83605; 85007; 85027; 93005; A9270; J0610; J0696; J1815; J7030; U0002; 82947; 84132; 85025; J1644; J1940; J7120

== ENCOUNTER 2021-05-11 08:33 | Emergency (ER) | payer MEDICARE, MEDICAID ==
--- NOTE | 2021-05-11 09:12 | EDM.PDOC ---
ED HPI GENERAL MEDICAL PROBLEM - General Chief Complaint: Head Injury Stated Complaint: POSS HEAD INJURY FROM FALL Time Seen by Provider: 05/11/21 08:55 Source of Information: Reports: Patient History Limitations: Reports: No Limitations - History of Present Illness INITIAL COMMENTS - FREE TEXT/NARRATIVE: The patient was brought in by his daughter for a fall. He live with his daughter and she found him at home on the floor. He is not sure why he fell. He has no headache, neck pain, chest pain, abdominal pain, arm or leg pain. He has no dizziness or shortness of breath. His daughter had to go to an appointment and left before I came into the room. He has no fever, chills, cough, or dysuria. He is not a great historian. He is not on any blood thinners. Onset: Sudden Duration: Minutes: Improves with: Reports: None Worsens with: Reports: None Associated Symptoms: Reports: No Other Symptoms - Related Data Allergies Allergy/AdvReac Type Severity Reaction Status Date / Time codeine Allergy Cannot Verified 02/26/21 19:49 Remember morphine Allergy Cannot Verified 02/27/21 02:39 Remember Home Meds: Home Meds Lisinopril 20 mg PO DAILY 10/11/17 [History] Memantine [Namenda] 10 mg PO BID 10/11/17 [History] Sertraline [Zoloft] 100 mg PO BID 10/11/17 [History] Hydrocodone/Acetaminophen [HYDROcodone-Acetaminophen 5-325 MG] 1 tab PO DAILY 10/10/20 [History] Simvastatin 20 mg PO BEDTIME 10/10/20 [History] Temazepam [Restoril] 15 mg PO BEDTIME 10/10/20 [History] metFORMIN [Glucophage XR] 750 mg PO BID 10/10/20 [History] traZODone HCl [Trazodone HCl] 100 mg PO DAILY 10/10/20 [History] Chlorthalidone 25 mg PO DAILY 02/26/21 [History] SitaGLIPtin [Januvia] 50 mg DAILY 02/26/21 [History] Sodium Polystyrene Sulfon/Sorb [Sps 15 gm/60 ml Suspension] 15 PO PRN 02/26/21 [History] Sodium Polystyrene Sulfonate [Kayexalate] 15 gm PO ASDIRECTED #10 cup 02/28/21 [Rx] Past Medical History - Past Health History Medical/Surgical History: Denies Medical/Surgical History HEENT History: Reports: Hard of Hearing Other HEENT History: dentures Cardiovascular History: Reports: CAD, VT Other Cardiovascular History: VT x4 Respiratory History: Reports: Other (See Below) Other Respiratory History: Lung mass Gastrointestinal History: Reports: GERD, Hiatal Hernia Genitourinary History: Reports: Chronic Renal Insuffiency, Pyelonephritis, Urostomy, UTI, Recurrent, Other (See Below) Other Genitourinary History: bladder cancer hx, urostomy in place for 30+ years Musculoskeletal History: Reports: Back Pain, Chronic Neurological History: Reports: Concussion Other Neuro History: confusion Psychiatric History: Reports: Dementia, Depression Endocrine/Metabolic History: Reports: Diabetes, Type II Hematologic History: Reports: Anticoagulation Therapy Oncologic (Cancer) History: Reports: Bladder - Past Surgical History HEENT Surgical History: Reports: Oral Surgery Cardiovascular Surgical History: Reports: Coronary Artery Stent GI Surgical History: Reports: Cholecystectomy, Small Bowel Other GI Surgeries/Procedures: 2/3 of stomach pouch removed Male Surgical History: Reports: Prostatectomy, Other (See Below) Other Male Surgeries/Procedures: urinary stoma RLQ Oncologic Surgical History: Reports: Other (See Below) Other Oncologic Surgeries/Procedures: 30 yrs ago Social & Family History - Family History Family Medical History: No Pertinent Family History - Caffeine Use Caffeine Use: Reports: Coffee - Recreational Drug Use Recreational Drug Use: No - Living Situation & Occupation Living situation: Reports: , with Family (Daughter + [id number]) Occupation: Retired ED ROS GENERAL - Review of Systems Review Of Systems: See Below Constitutional: Reports: No Symptoms HEENT: Reports: No Symptoms Respiratory: Reports: No Symptoms Cardiovascular: Reports: No Symptoms Endocrine: Reports: No Symptoms GI/Abdominal: Reports: No Symptoms : Reports: No Symptoms Musculoskeletal: Reports: No Symptoms ED EXAM, HEAD INJURY - Physical Exam Exam: See Below Exam Limited By: No Limitations General Appearance: Alert, No Apparent Distress Head: Atraumatic, Normocephalic Ears: Normal External Exam Nose: Normal Inspection Neck: Non-Tender, Normal Alignment, Normal Inspection Respiratory: No Respiratory Distress, Lungs Clear, Normal Breath Sounds Cardiovascular: Regular Rate, Rhythm, No Edema, No Murmur GI/Abdominal Exam: Soft, Non-Tender, No Organomegaly, No Mass Extremities: Normal Inspection #1 Interpretation EKG Date: 05/11/21 Time: 09:31 Rhythm: Other (sinus bradycardia) Rate (Beats/Min): 52 [place]: LAD-Left [place] Deviation P-Wave: Present QRS: Normal ST-T: Elevated (Minimal ST elevation anterolateral leads) QT: Normal Comparison: No Change Course - Vital Signs Last Recorded V/S: Last Vital Signs Temp 96.8 F L 05/11/21 08:55 Pulse 53 L 05/11/21 08:55 Resp 18 05/11/21 08:55 BP 140/56 L 05/11/21 08:55 Pulse Ox 94 L 05/11/21 08:55 - Orders/Labs/Meds Orders: Active Orders 24 hr Category Date Time Status Cardiac Monitoring [RC] . DIRECTED Care 05/11/21 09:06 Active Labs: Laboratory Tests 05/11/21 05/11/21 05/11/21 Range/Units 09:25 09:25 09:25 WBC 7.11 (4.23-9.07) K/mm3 RBC 4.64 (4.63-6.08) M/mm3 Hgb 13.3 L (13.7-17.5) gm/dl Hct 41.6 (40.1-51.0) % MCV 89.7 (79.0-92.2) fl MCH 28.7 (25.7-32.2) pg MCHC 32.0 L (32.2-35.5) g/dl RDW Std Deviation 52.5 H (35.1-43.9) fL Plt Count 149 L D (163-337) K/mm3 MPV 10.7 (9.4-12.3) fl Neut % (Auto) 72.5 H (34.0-67.9) % Lymph % (Auto) 16.0 L (21.8-53.1) % [place] % (Auto) 9.8 (5.3-12.2) % Eos % (Auto) 1.3 (0.8-7.0) Baso % (Auto) 0.4 (0.1-1.2) % Neut # (Auto) 5.15 (1.78-5.38) K/mm3 Lymph # (Auto) 1.14 L (1.32-3.57) K/mm3 [place] # (Auto) 0.70 (0.30-0.82) K/mm3 Eos # (Auto) 0.09 (0.04-0.54) K/mm3 Baso # (Auto) 0.03 (0.01-0.08) K/mm3 PT 10.6 (9.7-12.0) SECONDS INR 0.95 APTT 26.8 (21.7-31.4) SECONDS Sodium 144 (136-145) mEq/L Potassium 4.8 (3.5-5.1) mEq/L Chloride 110 H (98-107) mEq/L Carbon Dioxide 26 (21-32) mEq/L Anion Gap 12.8 (5-15) BUN 23 H (7-18) mg/dL Creatinine 0.9 (0.7-1.3) mg/dL Est Cr Clr Drug Dosing 59.07 mL/min Estimated GFR (MDRD) > 60 (>60) mL/min BUN/Creatinine Ratio 25.6 H (14-18) Glucose 108 H (70-99) mg/dL Calcium 9.1 (8.5-10.1) mg/dL Total Bilirubin 0.5 (0.2-1.0) mg/dL AST 20 (15-37) U/L ALT 26 (16-63) U/L Alkaline Phosphatase 89 (46-116) U/L Troponin I < 0.017 (0.00-0.056) ng/mL Total Protein 6.7 (6.4-8.2) g/dl Albumin 3.6 (3.4-5.0) g/dl Globulin 3.1 gm/dL Albumin/Globulin Ratio 1.2 (1-2) - Re-Assessments/Exams Free Text/Narrative Re-Assessment/Exam: 05/11/21 09:11 I ordered an EKG, CT of his head and labs. 05/11/21 10:43 His EKG shows no acute changes. 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 No acute intracranial abnormality is identified on noncontrast head CT study. His CBC and CMP look good. His troponin is negative. I will discharge him home. Departure - Departure Time of Disposition: 10:50 Disposition: Home, Self-Care 01 Condition: Good Clinical Impression: Fall Qualifiers: Encounter type: initial encounter Qualified Code(s): W19.XXXA - Unspecified fall, initial encounter - Discharge Information *PRESCRIPTION DRUG MONITORING PROGRAM REVIEWED*: Not Applicable *COPY OF PRESCRIPTION DRUG MONITORING REPORT IN PATIENT MARY: Not Applicable Referrals: Tung Ruvalcaba NP [Primary Care Provider] - 1 Week Forms: ED Department Discharge Additional Instructions: Take your medications as prescribed. Follow up with your provider within a week. Please return if you are worse. Sepsis Event Note (ED) - Focused Exam Vital Signs: Vital Signs Temp Pulse Resp BP Pulse Ox 05/11/21 08:55 96.8 F L 53 L 18 140/56 L 94 L - My Orders Last 24 Hours: My Active Orders 05/11/21 09:06 Cardiac Monitoring [RC] . DIRECTED - Assessment/Plan Last 24 Hours: My Active Orders 05/11/21 09:06 Cardiac Monitoring [RC] . DIRECTED
--- NOTE | 2021-05-11 09:35 | CT ---
Head CT Technique: Multiple axial sections through the brain were obtained. Intravenous contrast was not utilized. Reconstructed coronal and sagittal images were obtained. Comparison: Prior head CT study of 11/21/20. Findings: Ventricles along with basal cisterns and sulci over the convexities are moderately prominent. 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 Small old infarct is also noted within the posterior right cerebellar hemisphere. 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 No other abnormal parenchymal density is seen. No evidence of intracranial hemorrhage is seen. No midline shift or mass-effect is seen. Bone window settings were reviewed. Visualized mastoid sinuses are clear. Minimal mucosal thickening is seen within the ethmoid sinuses which are felt to be incidental. No acute calvarial abnormality is appreciated. Impression: 1. 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 2. No acute intracranial abnormality is identified on noncontrast head CT study. Diagnostic code #2
== END 2021-05-11 11:10 | disposition home or self-care (01) ==
LOC: JD.ED 08:33
DX: Z04.3 Encounter for examination and observation following other accident (principal); I25.10 Atherosclerotic heart disease of native coronary artery without angina pectoris; E11.22 Type 2 diabetes mellitus with diabetic chronic kidney disease; N18.9 Chronic kidney disease, unspecified; I25.2 Old myocardial infarction; Z88.5 Allergy status to narcotic agent; Z95.5 Presence of coronary angioplasty implant and graft; Z79.899 Other long term (current) drug therapy
CPT/HCPCS: 36415; 70450; 70450-26; 80053; 84484; 85025; 85610; 85730; 93005; 93010; 99283; 99284-25

== ENCOUNTER 2021-12-08 21:43 | Emergency (ER) | payer MEDICARE | END 2021-12-08 23:57 | disposition home or self-care (01) | LOC: JD.ED 21:43 | DX: S70.02XA Contusion of left hip, initial encounter (principal); K21.9 Gastro-esophageal reflux disease without esophagitis; I25.10 Atherosclerotic heart disease of native coronary artery without angina pectoris; I25.2 Old myocardial infarction; E11.22 Type 2 diabetes mellitus with diabetic chronic kidney disease; N18.9 Chronic kidney disease, unspecified; Z88.5 Allergy status to narcotic agent; Z79.899 Other long term (current) drug therapy; Z87.891 Personal history of nicotine dependence; W18.30XA Fall on same level, unspecified, initial encounter; Y92.129 Unspecified place in nursing home as the place of occurrence of the external cause | CPT/HCPCS: 73502-26-LT; 73502-LT; 99284; 99284-25 ==

== ENCOUNTER 2021-12-12 18:30 | Emergency (ER) | payer MEDICARE | END 2021-12-12 21:26 | LOC: JD.ED 18:30 | DX: S43.101A Unspecified dislocation of right acromioclavicular joint, initial encounter (principal); I25.10 Atherosclerotic heart disease of native coronary artery without angina pectoris; I25.2 Old myocardial infarction; K21.9 Gastro-esophageal reflux disease without esophagitis; E11.9 Type 2 diabetes mellitus without complications; Z88.5 Allergy status to narcotic agent; Z79.84 Long term (current) use of oral hypoglycemic drugs; Z79.82 Long term (current) use of aspirin; Z79.899 Other long term (current) drug therapy; W18.30XA Fall on same level, unspecified, initial encounter; Y92.129 Unspecified place in nursing home as the place of occurrence of the external cause | CPT/HCPCS: 73000-26-RT; 73000-RT; 73030-26-RT; 73030-RT; 99283-25; 99284 ==

== ENCOUNTER 2022-12-03 10:09 | Emergency (ER) | payer MEDICARE, MEDICAID ==
[2022-12-03] MEDS ORDERED: Sodium Chloride 0.9% 10 ML Syringe FLUSH PRN (10:12)
[2022-12-03] MEDS ORDERED: Sodium Chloride 0.9% 1,000 ML IV SCH (10:15)
[2022-12-03 11:04] LABS: ESTIMATED GFR 55 mL/min (>60)
[2022-12-03 11:34] LABS: CORONAVIRUS COVID-19 NAA POSITIVE (NEGATIVE)
[2022-12-03] MEDS ORDERED: cefTRIAXone 1 GM in Sodium Chloride 0.9% 100 ML IV ONE (13:52)
[2022-12-03] MEDS ORDERED: REMDESIVIR 200 MG in Sodium Chloride 0.9% 250 ML IV ONE (15:18)
== END 2022-12-03 16:00 ==
LOC: JD.ED 10:09
DX: S70.02XA Contusion of left hip, initial encounter (principal); U07.1 COVID-19; N39.0 Urinary tract infection, site not specified; R31.9 Hematuria, unspecified; R91.8 Other nonspecific abnormal finding of lung field; I25.10 Atherosclerotic heart disease of native coronary artery without angina pectoris; I25.2 Old myocardial infarction; E11.22 Type 2 diabetes mellitus with diabetic chronic kidney disease; N18.9 Chronic kidney disease, unspecified; Z88.5 Allergy status to narcotic agent; Z20.822 Contact with and (suspected) exposure to COVID-19; Z79.899 Other long term (current) drug therapy; W19.XXXA Unspecified fall, initial encounter; Y92.129 Unspecified place in nursing home as the place of occurrence of the external cause
CPT/HCPCS: 0241U; 36415; 70450; 70496; 70498; 71260; 72125; 73030; 73502; 80053; 81001; 84484; 85025; 85610; 85730; 86140; 87086; 87088; 87186; 93005; 96361; 96365; 99285; J0696; J3490; J7030; 93010

== ENCOUNTER 2022-12-27 11:56 | Emergency (ER) | payer MEDICARE, MEDICAID | END 2022-12-27 15:24 | disposition home or self-care (01) | LOC: JD.ED 11:56 | DX: N30.90 Cystitis, unspecified without hematuria (principal); I25.10 Atherosclerotic heart disease of native coronary artery without angina pectoris; I25.2 Old myocardial infarction; E11.9 Type 2 diabetes mellitus without complications; Z88.5 Allergy status to narcotic agent; Z88.6 Allergy status to analgesic agent; Z79.899 Other long term (current) drug therapy; Z79.84 Long term (current) use of oral hypoglycemic drugs; Z79.82 Long term (current) use of aspirin; Z90.49 Acquired absence of other specified parts of digestive tract | CPT/HCPCS: 36415; 71045; 71045-26; 80053; 81001; 85025; 87086; 99283; 99284 ==

== ENCOUNTER 2023-05-19 18:16 | Inpatient (IN) | payer MEDICARE, MEDICAID ==
[2023-05-19] MEDS ORDERED: Metoclopramide 10 MG/2 ML SDV IVPUSH ONE (18:38)
[2023-05-19] MEDS ORDERED: HYDROmorphone 1 MG/ML Syringe IVPUSH ONE (18:38)
[2023-05-19] MEDS ORDERED: Dextrose 5%-0.9% NaCl 1,000 ML IV SCH (18:45)
[2023-05-19 18:48] LABS: BASOPHILS PERCENT AUTO 0.6 % (0.0-1.0); EOSINOPHILS ABSOLUTE AUTO 0.3 K/mm3 (0.0-0.4); EOSINOPHILS PERCENT AUTO 4.7 % (0.0-6.0); HEMATOCRIT 36.2 % (42.0-52.0); HEMOGLOBIN 11.3 gm/dl (14.0-18.0); IMMATURE GRAN PERCENT AUTO 1.5 % (0.0-0.4); LYMPHOCYTES ABSOLUTE AUTO 0.8 K/mm3 (1.0-4.8); LYMPHOCYTES PERCENT AUTO 11.9 % (24.0-44.0); MEAN CORPUSCULAR HEMOGLOBIN 26.4 pg (28.0-32.0); MEAN CORPUSCULAR HGB CONC 31.2 g/dl (32.0-36.0); MEAN CORPUSCULAR VOLUME 84.6 fl (83.0-99.0); MEAN PLATELET VOLUME 9.7 fl (9.4-12.4); MONOCYTES ABSOLUTE AUTO 0.7 K/mm3 (0.0-0.8); MONOCYTES PERCENT AUTO 10.2 % (0.0-8.0); NEUTROPHILS ABSOLUTE AUTO 4.7 K/mm3 (1.8-7.7); NEUTROPHILS PERCENT AUTO 71.1 % (41.0-71.0); PLATELET COUNT,PLT 201 K/mm3 (150-400); RED BLOOD CELL COUNT 4.28 M/mm3 (4.52-5.90); WHITE BLOOD CELL COUNT,WBC 6.66 K/mm3 (3.9-11.3)
[2023-05-19 18:54] LABS: INR 0.98; PROTHROMBIN TIME 10.5 SECONDS (9.7-12.0)
[2023-05-19 18:56] LABS: PTT,PARTIAL THROMBOPLSTIN TIME 30.1 SECONDS (21.7-31.4)
[2023-05-19 19:07] LABS: C-REACTIVE PROTEIN 6.4 mg/dL (<1.0); MAGNESIUM 1.9 mg/dL (1.8-2.4)
[2023-05-19 20:04] LABS: APPEARANCE,URINE CLEAR (Clear); BILIRUBIN,URINE NEGATIVE (Negative); COLOR,URINE LIGHT YELLOW (Yellow); GLUCOSE,URINE NEGATIVE (Negative); KETONES,URINE NEGATIVE (Negative); LEUKOCYTE ESTERASE,URINE 1+ (Negative); NITRITE,URINE POSITIVE (Negative); OCCULT BLOOD,URINE NEGATIVE (Negative); PROTEIN,URINE 1+ (Negative); UROBILINOGEN,URINE 0.2 (0.2-1.0)
[2023-05-19 20:16] LABS: A/G RATIO 0.7 (1-2); ALBUMIN 3.1 g/dl (3.4-5.0); ANION GAP 10.5 (5-15); BILIRUBIN TOTAL 0.2 mg/dL (0.2-1.0); BUN/CREATININE RATIO 24.5 (14-18); CALCIUM 9.1 mg/dL (8.5-10.1); CREATININE 1.1 mg/dL (0.7-1.3); EST CRCL DRUG DOSING (CG) 53.15 mL/min; PROTEIN TOTAL,TP 7.5 g/dl (6.4-8.2)
[2023-05-19 20:25] LABS: AMORPHOUS SEDIMENT,URINE MODERATE /hpf (NOT SEEN); BACTERIA,URINE MANY /hpf (FEW); MUCUS,URINE NOT SEEN /hpf (FEW); RBC,URINE 0-5 /hpf (0-5); SQUAMOUS EPITHELIAL CELLS,UR 0-5 /hpf (0-5); WBC CLUMPS,URINE FEW /hpf (NOT SEEN); WBC,URINE 30-40 /hpf (0-5)
[2023-05-19 20:29] LABS: POTASSIUM,K 6.5 mEq/L (3.5-5.1)
[2023-05-19] MEDS ORDERED: Iopamidol 612 MG/ML 100 ML Bottle IVPUSH ONE (20:29)
[2023-05-19] MEDS ORDERED: Sodium Chloride 0.9% 10 ML SDV FLUSH ONE (20:29)
[2023-05-19] MEDS ORDERED: Albuterol/Ipratropium 3.0-0.5 MG/3 ML Neb Soln NEB ONE (20:43)
[2023-05-19] MEDS ORDERED: Furosemide 40 MG/4 ML VIAL IVPUSH ONE (20:43)
[2023-05-19] MEDS ORDERED: Albuterol/Ipratropium 3.0-0.5 MG/3 ML Neb Soln ONE (21:02)
[2023-05-19] MEDS ORDERED: LORazepam 2 MG/ML SDV IV PRN (21:36)
[2023-05-19] MEDS ORDERED: Pantoprazole 40 MG Vial IV ONE (21:36)
[2023-05-19] MEDS ORDERED: Albuterol 0.083% 2.5 MG/3 ML Neb Soln NEB PRN (21:36)
[2023-05-19] MEDS: Sodium Chloride 0.9% 1,000 ML IV SCH (23:00)
[2023-05-20] MEDS: HYDROmorphone 0.5 MG/0.5 ML Syringe IVPUSH PRN ×4 (04:33→21:52)
[2023-05-20] MEDS: Insulin Lispro 100 Unit/ML 3 ML KwikPen SUBCUT SCH ×4 (08:50→21:37)
[2023-05-20] MEDS: Sertraline 50 MG Tab PO SCH (08:54)
[2023-05-20] MEDS: Memantine 10 MG Tab PO SCH ×2 (08:54→21:38)
[2023-05-20] MEDS ORDERED: TRAZODONE HCL 100 MG PO SCH (09:00)
[2023-05-20] MEDS ORDERED: Insulin Glargine,Human Rec. Analog 100 Units/ML 3 ML Pen SUBCUT SCH (09:00)
[2023-05-20] MEDS ORDERED: Donepezil 10 MG Tab PO SCH (09:00)
[2023-05-20] MEDS ORDERED: Non-Formulary Medication 1 Each (Sertraline 100 MG Tablet) PO SCH (09:00)
[2023-05-20] MEDS ORDERED: Methimazole 5 MG Tab PO SCH ×2 (09:00)
[2023-05-20] MEDS: Sodium Chloride 0.9% 1,000 ML IV SCH (13:30)
[2023-05-20] MEDS ORDERED: Ferrous Sulfate 324 MG Tab.EC PO SCH ×2 (14:00→18:00)
[2023-05-20] MEDS: Levofloxacin 500 MG Tab PO SCH (14:17)
[2023-05-20] MEDS: Methimazole 5 MG Tab PO SCH (14:17)
[2023-05-20] MEDS ORDERED: QUEtiapine 25 MG Tab PO SCH (21:00)
[2023-05-20] MEDS ORDERED: Non-Formulary Medication 1 Each (Memantine Hcl/Donepezil Hcl [Namzaric 28 Mg-10 Mg Capsule PO SCH (21:00)
[2023-05-20] MEDS: QUEtiapine 25 MG Tab PO SCH (21:38)
[2023-05-20] MEDS: traZODone 50 MG Tab PO SCH (21:39)
[2023-05-21] MEDS: Sodium Chloride 0.9% 1,000 ML IV SCH (02:17)
[2023-05-21] MEDS: HYDROmorphone 0.5 MG/0.5 ML Syringe IVPUSH PRN (05:29)
[2023-05-21] MEDS ORDERED: Morphine 8 MG, EPINEPHrine 0.3 MG, Cefuroxime 750 MG, Ketorolac 30 MG, Sodium Chloride ... PRN ×10 (06:02→14:40)
[2023-05-21] MEDS: Insulin Lispro 100 Unit/ML 3 ML KwikPen SUBCUT SCH ×4 (07:57→22:55)
[2023-05-21] MEDS ORDERED: Sulfamethoxazole/Trimethoprim 800-160 MG Tab PO SCH (09:00)
[2023-05-21] MEDS ORDERED: Methimazole 5 MG Tab PO SCH (09:00)
[2023-05-21] MEDS ORDERED: Enoxaparin 40 MG/0.4 ML Syringe SUBCUT SCH (09:00)
[2023-05-21] MEDS: Sertraline 50 MG Tab PO SCH (09:19)
[2023-05-21] MEDS: Methimazole 5 MG Tab PO SCH (09:19)
[2023-05-21] MEDS: QUEtiapine 25 MG Tab PO SCH ×2 (09:19→21:19)
[2023-05-21 09:39] LABS: BASOPHILS ABSOLUTE AUTO 0.1 K/mm3 (0.0-0.2); BASOPHILS PERCENT AUTO 0.7 % (0.0-1.0); EOSINOPHILS ABSOLUTE AUTO 0.5 K/mm3 (0.0-0.4); EOSINOPHILS PERCENT AUTO 7.5 % (0.0-6.0); HEMATOCRIT 35.5 % (42.0-52.0); HEMOGLOBIN 10.9 gm/dl (14.0-18.0); IMMATURE GRAN ABSOLUTE AUTO 0.06 K/mm3 (0.00-0.05); IMMATURE GRAN PERCENT AUTO 0.8 % (0.0-0.4); LYMPHOCYTES ABSOLUTE AUTO 0.7 K/mm3 (1.0-4.8); MEAN CORPUSCULAR HEMOGLOBIN 26.7 pg (28.0-32.0); MEAN CORPUSCULAR HGB CONC 30.7 g/dl (32.0-36.0); MEAN CORPUSCULAR VOLUME 86.8 fl (83.0-99.0); MEAN PLATELET VOLUME 9.9 fl (9.4-12.4); MONOCYTES ABSOLUTE AUTO 0.7 K/mm3 (0.0-0.8); MONOCYTES PERCENT AUTO 9.8 % (0.0-8.0); NEUTROPHILS ABSOLUTE AUTO 5.1 K/mm3 (1.8-7.7); NEUTROPHILS PERCENT AUTO 71.2 % (41.0-71.0); PLATELET COUNT,PLT 177 K/mm3 (150-400); RED BLOOD CELL COUNT 4.09 M/mm3 (4.52-5.90); WHITE BLOOD CELL COUNT,WBC 7.21 K/mm3 (3.9-11.3)
[2023-05-21 10:10] LABS: ANION GAP 11.3 (5-15); CALCIUM 9.2 mg/dL (8.5-10.1); CREATININE 0.9 mg/dL (0.7-1.3); EST CRCL DRUG DOSING (CG) 52.99 mL/min; MAGNESIUM 1.7 mg/dL (1.8-2.4); POTASSIUM,K 5.3 mEq/L (3.5-5.1)
[2023-05-21] MEDS ORDERED: Donepezil 10 MG Tab PO SCH ×2 (13:00→21:00)
[2023-05-21] MEDS ORDERED: Sodium Polystyrene Sulfonate 15 GM/60 ML Susp 60 ML Bot PO ONE ×2 (13:48→17:45)
[2023-05-21] MEDS ORDERED: Propofol 200 MG/20 ML SDV ONE ×2 (13:50→15:28)
[2023-05-21] MEDS ORDERED: Lidocaine 1% 4 ML ONE (13:50)
[2023-05-21] MEDS ORDERED: fentaNYL 100 MCG/2 ML SDV ONE (13:51)
[2023-05-21] MEDS ORDERED: Magnesium Sulfate/Water 2 GM in Premix Bag 1 BAG IV ONE ×2 (14:00→17:45)
[2023-05-21] MEDS ORDERED: Tranexamic Acid 1,000 MG/10 ML Vial ONE (14:18)
[2023-05-21] MEDS ORDERED: Vancomycin 1 GM SDV ONE (14:18)
[2023-05-21] MEDS ORDERED: ceFAZolin 2 GM Vial ONE (15:01)
[2023-05-21] MEDS ORDERED: Ondansetron 4 MG/2 ML SDV IVPUSH PRN (15:19)
[2023-05-21] MEDS ORDERED: fentaNYL 100 MCG/2 ML SDV IVPUSH PRN (15:19)
[2023-05-21] MEDS ORDERED: HYDROmorphone 0.5 MG/0.5 ML Syringe IVPUSH PRN (15:19)
[2023-05-21] MEDS ORDERED: ePHEDrine 50 MG/ML SDV ONE (15:34)
[2023-05-21] MEDS ORDERED: Naloxone 0.4 MG/ML SDV IVPUSH PRN (16:56)
[2023-05-21] MEDS ORDERED: Acetaminophen/HYDROcodone 325-5 MG Tab PO PRN (16:59)
[2023-05-21] MEDS ORDERED: Cyclobenzaprine 10 MG Tab PO PRN (16:59)
[2023-05-21] MEDS: Memantine 10 MG Tab PO SCH ×2 (17:43→22:54)
[2023-05-21] MEDS: Levofloxacin 500 MG Tab PO SCH (17:45)
[2023-05-21] MEDS ORDERED: fentaNYL 12 MCG/HR Transdermal Patch TRDERM SCH (19:00)
[2023-05-21] MEDS ORDERED: Melatonin 3 MG Tab PO SCH (21:00)
[2023-05-21] MEDS: traZODone 50 MG Tab PO SCH (21:20)
[2023-05-22] MEDS: Sertraline 50 MG Tab PO SCH (08:32)
[2023-05-22] MEDS: QUEtiapine 25 MG Tab PO SCH (08:32)
[2023-05-22] MEDS: Methimazole 5 MG Tab PO SCH (08:32)
[2023-05-22] MEDS: Insulin Lispro 100 Unit/ML 3 ML KwikPen SUBCUT SCH ×2 (08:33→11:38)
[2023-05-22] MEDS: Memantine 10 MG Tab PO SCH (08:33)
[2023-05-22 10:38] LABS: BASOPHILS PERCENT AUTO 0.4 % (0.0-1.0); EOSINOPHILS ABSOLUTE AUTO 0.4 K/mm3 (0.0-0.4); EOSINOPHILS PERCENT AUTO 5.4 % (0.0-6.0); HEMATOCRIT 32.8 % (42.0-52.0); HEMOGLOBIN 10.3 gm/dl (14.0-18.0); IMMATURE GRAN ABSOLUTE AUTO 0.04 K/mm3 (0.00-0.05); IMMATURE GRAN PERCENT AUTO 0.6 % (0.0-0.4); LYMPHOCYTES ABSOLUTE AUTO 0.3 K/mm3 (1.0-4.8); LYMPHOCYTES PERCENT AUTO 4.9 % (24.0-44.0); MEAN CORPUSCULAR HEMOGLOBIN 26.3 pg (28.0-32.0); MEAN CORPUSCULAR HGB CONC 31.4 g/dl (32.0-36.0); MEAN CORPUSCULAR VOLUME 83.9 fl (83.0-99.0); MEAN PLATELET VOLUME 10.2 fl (9.4-12.4); MONOCYTES ABSOLUTE AUTO 0.5 K/mm3 (0.0-0.8); MONOCYTES PERCENT AUTO 7.5 % (0.0-8.0); NEUTROPHILS ABSOLUTE AUTO 5.5 K/mm3 (1.8-7.7); NEUTROPHILS PERCENT AUTO 81.2 % (41.0-71.0); PLATELET COUNT,PLT 156 K/mm3 (150-400); RED BLOOD CELL COUNT 3.91 M/mm3 (4.52-5.90)
[2023-05-22 11:10] LABS: A/G RATIO 0.6 (1-2); ALBUMIN 2.7 g/dl (3.4-5.0); ANION GAP 13.9 (5-15); BILIRUBIN TOTAL 0.5 mg/dL (0.2-1.0); EST CRCL DRUG DOSING (CG) 47.69 mL/min; MAGNESIUM 1.9 mg/dL (1.8-2.4); POTASSIUM,K 4.9 mEq/L (3.5-5.1)
[2023-05-22] MEDS ORDERED: Aspirin 81 MG Tab.Chew PO ONE (11:15)
[2023-05-22] MEDS: Levofloxacin 500 MG Tab PO SCH (13:52)
== END 2023-05-22 14:10 | DRG 536 ==
LOC: JD.ED 18:16 → JD.MS 20:58
PROVIDERS: ADMIT Pediatrics; ATTEND Pediatrics
DX: S72.012A Unspecified intracapsular fracture of left femur, initial encounter for closed fracture (principal); F10.27 Alcohol dependence with alcohol-induced persisting dementia; I44.4 Left anterior fascicular block; J44.9 Chronic obstructive pulmonary disease, unspecified; E11.21 Type 2 diabetes mellitus with diabetic nephropathy; E11.319 Type 2 diabetes mellitus with unspecified diabetic retinopathy without macular edema; M19.90 Unspecified osteoarthritis, unspecified site; G89.29 Other chronic pain; Z66 Do not resuscitate; M54.9 Dorsalgia, unspecified; E04.9 Nontoxic goiter, unspecified; E87.5 Hyperkalemia; I12.9 Hypertensive chronic kidney disease with stage 1 through stage 4 chronic kidney disease, or unspecified chronic kidney disease; G30.9 Alzheimer's disease, unspecified; F32.A Depression, unspecified; E11.22 Type 2 diabetes mellitus with diabetic chronic kidney disease; F02.C0 Dementia in other diseases classified elsewhere, severe, without behavioral disturbance, psychotic disturbance, mood disturbance, and anxiety; N18.2 Chronic kidney disease, stage 2 (mild); E05.90 Thyrotoxicosis, unspecified without thyrotoxic crisis or storm; R91.8 Other nonspecific abnormal finding of lung field; W18.30XA Fall on same level, unspecified, initial encounter; Z86.73 Personal history of transient ischemic attack (TIA), and cerebral infarction without residual deficits; Z98.890 Other specified postprocedural states; Y92.128 Other place in nursing home as the place of occurrence of the external cause; R29.6 Repeated falls; E11.9 Type 2 diabetes mellitus without complications; I25.10 Atherosclerotic heart disease of native coronary artery without angina pectoris; Z88.5 Allergy status to narcotic agent; I25.2 Old myocardial infarction; Z79.01 Long term (current) use of anticoagulants; Z90.49 Acquired absence of other specified parts of digestive tract; K21.9 Gastro-esophageal reflux disease without esophagitis; Z79.82 Long term (current) use of aspirin; Z79.84 Long term (current) use of oral hypoglycemic drugs; Z79.899 Other long term (current) drug therapy; Z93.6 Other artificial openings of urinary tract status; Z95.5 Presence of coronary angioplasty implant and graft; Z85.51 Personal history of malignant neoplasm of bladder; W01.198A Fall on same level from slipping, tripping and stumbling with subsequent striking against other object, initial encounter
CPT/HCPCS: 36415; 70450; 71045; 71260; 72125; 72170; 73552; 80053; 81001; 82947; 83735; 83880; 84484; 85025; 85610; 85730; 86140; 86850; 86900; 86901; 87086; 87088 ×2; 87186 ×2; 93005; 96361; 96374; 96375; 99285; J1170; J2765; J7042; Q9967; 01230; 73501-26-LT; 73501-LT; 80048; 84132; 87641; 93010; 94640; 94667; 94668; 94761; 97116-GP; 97162-GP; 99100; 99232; 99239; 99284; A9270-GY; C1776; J0171; J0690; J0697; J1815; J1885; J1940; J2270; J2704; J3010; J3370; J3475; J3490; J7030; J7620-GY